=== PATIENT | female | born 1935 | race Two or more races ===

== ENCOUNTER 2023-05-02 17:40 | Emergency (ER) | payer MEDICARE, SELFPAY ==
[2023-05-02] VITALS (22 sets, daily range): BP systolic 166–178; BP diastolic 65–74; PULSE 60–66; RESP 10–25; TEMP 36.7; O2SAT 99; BMI 15.8
--- NOTE | 2023-05-02 18:14 | ED_ITS ---
HPI - General Adult General Chief complaint: Weakness Stated complaint: syncope/ abdominal pain severe Time Seen by Provider: 05/02/23 18:12 Source: patient Mode of arrival: Wheelchair Limitations: no limitations History of Present Illness HPI narrative: Patient is a 87 year old female who is presenting to the Emergency Room with chief complaint of abdominal/periumbilical cramping since Tuesday along with some mild weakness and mild nausea with no vomiting. Patient's daughter and daughter's are at bedside. Patient goes to dialysis on Tuesday and Tuesday. Patient did complete dialysis today, she had a little less fluid taken off of her today than she normally does secondary to abdominal and leg cramping. Patient still makes urine. Patient has no sick contacts. Patient lives at home with family members. Patient has no headache or neck pain. Not lightheaded or dizzy. No chest pain or shortness of breath. Mild urinary dysuria, no diarrhea, no constipation the patient says. Patient did not go the bathroom today, patient says that she did have normal stool this past weekend. No specific complaints for obvious etiology at this time. . All systems are negative except as noted/marked. All systems reviewed and otherwise negative. . Nurses note and vital signs reviewed and patient is not hypoxic. General: The patient appears well and in no apparent distress. Patient is resting comfortably on cart. Patient is not toxic, lethargic, or listless Skin: Warm, dry, no pallor noted. There is no rash noted. No petechiae, purpura. Head: Normocephalic, atraumatic Eye: Normal conjunctiva, no drainage, EOMI. PERRL Ears, Nose, Mouth, and Throat: oral mucosa is Slightly dry. Nares patent. Mouth without vesicles. Cardiovascular: Regular Rate and Rhythm, no murmur, gallop, rub Respiratory: Patient is in no distress, no accessory muscle use, lungs are clear to auscultation, no wheezing, rales or rhonchi Back: non-tender, no CVA tenderness bilaterally to percussion. No CT LS midline pain GI: soft, Mild periumbilical tenderness to palpation, no peritoneal signs, no flank bilateral pain to palpation, No suprapubic tenderness to palpation, hypoactive bowel sounds ?4, otherwise no tenderness to palpation, no masses appreciated. No rebound, guarding, or rigidity noted. No flank pain bilateral, No distention. No rash. Musculoskeletal: Patient has full range of motion of all of the extremities, no motor, sensory, or focal neurological deficits. Patient's fistula is to her left forearm. There is palpable thrills or bruits. No bleeding. Bandage is still in place from dialysis today. Neurological: A&O x3, normal speech Psychiatric: Cooperative Related Data Allergies Allergy/AdvReac Type Severity Reaction Status Date / Time No Known Drug Allergies Allergy Verified 05/02/23 17:50 PFSH PFSH Social History Smoking status: Never smoker Exam Constitutional Vital Signs, click to edit/add: Last Vital Signs Temp 98.1 F 05/02/23 17:47 Pulse 66 05/02/23 17:47 Resp 16 05/02/23 17:47 BP 166/74 H 05/02/23 17:47 Pulse Ox 99 05/02/23 17:47 O2 Del Method Room Air 05/02/23 17:47 Course Vital Signs Vital signs: Vital Signs Temperature 98.1 F 05/02/23 17:47 Pulse Rate 66 05/02/23 17:47 Respiratory Rate 16 05/02/23 17:47 Blood Pressure 166/74 H 05/02/23 17:47 Pulse Oximetry 99 05/02/23 17:47 Oxygen Delivery Method Room Air 05/02/23 17:47 Temperature 98.1 F 05/02/23 17:47 Pulse Rate 66 05/02/23 17:47 Respiratory Rate 16 05/02/23 17:47 Blood Pressure 166/74 H 05/02/23 17:47 Pulse Oximetry 99 05/02/23 17:47 Oxygen Delivery Method Room Air 05/02/23 17:47 Medical Decision Making [facility] Narrative Medical decision making narrative: Patient's labwork shows no significant findings. Patient is transitioned to Dr. Beltrán at 1900. Pending are her x-ray results, COVID results, and urinalysis. Patient was not given IV fluids initially because they took less fluid off of her today because of her abdominal/leg cramping. Patient was given IV Zofran. Lab Data Lab results reviewed: Yes I reviewed the patient's lab results Labs: Lab Results 05/02/23 Range/Units 18:05 WBC 5.7 (4.0-11.0) 10^3/uL RBC 3.84 L (4.20-5.40) 10^6/uL Hgb 12.4 (12.0-16.0) g/dL Hct 37.6 (36.0-48.0) % MCV 97.9 (81.0-99.0) fL MCH 32.3 (26.7-34.0) pg MCHC 33.0 (29.9-35.2) g/dL RDW 13.6 (11.0-15.0) % Plt Count 290 (150-450) 10^3/uL MPV 9.0 L (9.5-13.5) fL Neut % (Auto) 51.1 (43.0-75.0) % Lymph % (Auto) 35.4 (20.5-60.0) % [place] % (Auto) 10.8 (1.7-12.0) % Eos % (Auto) 1.6 (0.9-7.0) % Baso % (Auto) 0.9 (0.2-2.0) % Neut # (Auto) 2.9 (1.4-6.5) 10^3/uL Lymph # (Auto) 2.0 (1.2-3.8) 10^3/uL [place] # (Auto) 0.6 (0.3-0.8) 10^3/uL Eos # (Auto) 0.1 (0.0-0.7) 10^3/uL Baso # (Auto) 0.1 (0.0-0.1) 10^3/uL Abs Immat Gran (auto) 0.01 (0.00-0.03) 10^3/uL Imm/Tot Granulo (auto) 0.2 (0.0-0.5) % Sodium 135 L (136-145) mmol/L Potassium 3.8 (3.5-5.1) mmol/L Chloride 94 L (98-107) mmol/L Carbon Dioxide 36.9 H (21.0-32.0) mmol/L Anion Gap 7.9 BUN 14.0 (7.0-18.0) mg/dL Creatinine 3.21 H (0.55-1.02) mg/dL Est GFR ( Amer) 17 L (>=60) Est GFR (Non-Af Amer) 14 L (>=60) BUN/Creatinine Ratio 4.4 Glucose 114 H (74-106) mg/dL Calcium 9.3 (8.5-10.1) mg/dL Magnesium 2.2 (1.8-2.4) mg/dL Total Bilirubin 0.3 (0.2-1.0) mg/dL AST 22 (15-37) U/L ALT 22 (14-59) U/L Alkaline Phosphatase 129 H (46-116) U/L Total Protein 7.7 (6.4-8.2) g/dL Albumin 3.4 (3.4-5.0) g/dL Globulin 4.3 g/dL Albumin/Globulin Ratio 0.8 ECG Data Attestation: I personally reviewed and interpreted this ECG as follows: (EKG interpretation. Normal sinus rhythm at 61 beats a minute. Normal axis deviation. No acute ST elevation, no acute ectopy. QTC of 426. Nonspecific ST changes.) Discharge Plan Discharge Patient Disposition: Still a Patient
[2023-05-02] MEDS: ONDANSETRON PF 4 MG/2 ML VIAL IV (18:22)
[2023-05-02 18:23] LABS: Basophils Absolute Auto 0.1 10^3/uL (0.0-0.1); Basophils Percent Auto 0.9 % (0.2-2.0); Eosinophils Absolute Auto 0.1 10^3/uL (0.0-0.7); Eosinophils Percent Auto 1.6 % (0.9-7.0); Hematocrit 37.6 % (36.0-48.0); Hemoglobin 12.4 g/dL (12.0-16.0); Immature Granulocytes Abs Auto 0.01 10^3/uL (0.00-0.03); Immature Granulocytes Pct Auto 0.2 % (0.0-0.5); Lymphocytes Percent Auto 35.4 % (20.5-60.0); Mean Corpuscular Hemoglobin 32.3 pg (26.7-34.0); Mean Corpuscular Volume 97.9 fL (81.0-99.0); Monocytes Absolute Auto 0.6 10^3/uL (0.3-0.8); Monocytes Percent Auto 10.8 % (1.7-12.0); Neutrophils Absolute Auto 2.9 10^3/uL (1.4-6.5); Neutrophils Percent Auto 51.1 % (43.0-75.0); Platelet Count 290 10^3/uL (150-450); Red Blood Count 3.84 10^6/uL (4.20-5.40); Red Cell Distribution Width 13.6 % (11.0-15.0); White Blood Count 5.7 10^3/uL (4.0-11.0)
[2023-05-02 18:38] LABS: Alanine Aminotransferase 22 U/L (14-59); Albumin Globulin Ratio 0.8; Albumin Level 3.4 g/dL (3.4-5.0); Alkaline Phosphatase 129 U/L (46-116); Anion Gap 7.9; Aspartate Amino Transferase 22 U/L (15-37); BUN Creatinine Ratio 4.4; Bilirubin Total 0.3 mg/dL (0.2-1.0); Calcium 9.3 mg/dL (8.5-10.1); Carbon Dioxide 36.9 mmol/L (21.0-32.0); Chloride 94 mmol/L (98-107); Estimated GFR (African America 17 (>=60); Estimated GFR (Non-African Ame 14 (>=60); Globulin 4.3 g/dL; Glucose 114 mg/dL (74-106); Magnesium 2.2 mg/dL (1.8-2.4); Potassium 3.8 mmol/L (3.5-5.1); Sodium 135 mmol/L (136-145); Total Protein 7.7 g/dL (6.4-8.2)
--- NOTE | 2023-05-02 18:47 | XR_ITS ---
[facility] [place] [id number] Patient Name: ELIZABETH HAN MRN: [id number] date: 1935 Sex: F Assigned Patient Location: ER Current Patient Location: ER Accession/Order Number: [id number] Exam Date: 05/02/2023 19:10 Report Date: 05/02/2023 20:59 At the request of: JUSTINE CLARK Procedure: XR acute abdomen series EXAM: XR acute abdomen series HISTORY: Periumbilical cramping COMPARISON: None. TECHNIQUE: AP chest and 2 views of the abdomen FINDINGS: Hyperinflation the lung parenchyma. Scattered scarring with no acute consolidation or infiltrate. The heart is not enlarged. No pneumothorax or pleural effusion. Moderate to severe amount of stool within the rectum. Stool burden is otherwise unremarkable. The bowel gas pattern is nonobstructed. The osseous structures exhibit no gross acute abnormality. XR/XR acute abdomen series IMPRESSION: Moderate to severe amount of stool within the rectum Electronically authenticated by: RAUL MURRY Date: 05/02/2023 20:59
[2023-05-02 19:18] LABS: SARS-CoV-2 Ag NEGATIVE (NEGATIVE)
--- NOTE | 2023-05-02 19:28 | ECG_ITS ---
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
[2023-05-02 20:13] LABS: Bilirubin Urine NEGATIVE (NEGATIVE); Blood Urine TRACE-I (NEGATIVE); Clarity Urine CLEAR (CLEAR); Color Urine LT. YELLOW (YELLOW); Glucose Urine UA 100 mg/dL (NEGATIVE); Ketones Urine NEGATIVE (NEGATIVE); Leukocyte Esterase Urine TRACE (NEGATIVE); Nitrite Urine NEGATIVE (NEGATIVE); Protein Urine >=300 mg/dL (NEG/TRACE); Specific Gravity Urine 1.015 (1.005-1.025); Urobilinogen Urine 0.2 EU/dL (0.2-1.0); pH Urine 8.5 (5.0-9.0)
[2023-05-02 20:26] LABS: Bacteria Urine NONE SEEN #/HPF (NONE SEEN); Cast Seen? NONE SEEN #/LPF (NONE SEEN); Crystals Seen? None Seen #/HPF (None Seen); Mucus Urine NONE SEEN (NONE SEEN); RBC Urine 0-2 #/HPF (0-2); Squamous Epithelial Cell Urine FEW #/LPF (NONE/RARE); Transitional Epi Cells Urine RARE #/LPF (NONE SEEN); WBC Urine 0-2 #/HPF (NONE SEEN)
[2023-05-02 20:28] LABS: Troponin I High Sensitivity 117.3 pg/mL (4.0-51.3)
[2023-05-02] MEDS: ACETAMINOPHEN 325 MG TABLET 650 MG PO (21:02)
[2023-05-02 21:10] LABS: Troponin I High Sensitivity 110.2 pg/mL (4.0-51.3)
[2023-05-03 14:50] LABS: SARS-CoV-2 NAA NOT DETECTED (NOT DETECTE)
== END 2023-05-02 21:38 | disposition home or self-care (01) ==
PROVIDERS: Emergency Medicine; Emergency Provider Emergency Medicine
DX: K59.00 Constipation, unspecified (principal); E86.0 Dehydration; N18.6 End stage renal disease; Z99.2 Dependence on renal dialysis; Z20.822 Contact with and (suspected) exposure to COVID-19
CPT/HCPCS: 36415; 74022; 80053; 81001; 83735; 84484; 85025; 87635; 87811; 93005; 96374; 99285

== ENCOUNTER 2023-06-06 13:11 | Emergency (ER) | payer MEDICARE, SELFPAY ==
[2023-06-06 13:31] VITALS: BP 186/60; PULSE 60; RESP 18; TEMP 36.5; O2SAT 98; BMI 15.8
--- NOTE | 2023-06-06 13:37 | PC.NURSE ---
Pain to low back that radiates down left leg
--- NOTE | 2023-06-06 13:54 | XR_ITS ---
The [address] [address] Patient Name: ELIZABETH HAN MRN: [id number] date: 1935 Sex: F Assigned Patient Location: ER Current Patient Location: ER Accession/Order Number: [id number] Exam Date: 06/06/2023 14:20 Report Date: 06/06/2023 14:46 At the request of: JOÉS PARKS Procedure: XR lumbar spine 2-3V EXAM: XR lumbar spine 2-3V HISTORY: Low back pain COMPARISON: CT abdomen and CT pelvis studies dated 04/06/2021 TECHNIQUE: 3 views of the lumbar spine were obtained to include AP, lateral and directed lateral lumbosacral junction views. FINDINGS: Generalized osteopenia. Mild convexity of the lumbar spine to the left. Suggestion of mild to moderate height loss of L3 and L4 vertebral bodies centrally with depression of the superior endplates which may be artifactually created, compression fractures however are not excluded. Correlate clinically. Follow-up as needed. Moderate degenerative facet changes at L4-5 and L5-S1 bilaterally with mild changes at L3-4. 9 mm anterior offset of L4 vertebral body upon L5 likely related to ligament laxity/degenerative change, this appears mildly progressed compared to the prior exam. No obvious spondylolysis. XR/XR lumbar spine 2-3V IMPRESSION: Artifact versus possible compression fractures of L3 and L4 vertebral bodies. Degenerative changes as noted. There is 9 mm anterior offset of L4 vertebral body upon L5 mildly progressed since prior exam and likely related to ligament laxity/degenerative change. Follow-up as needed. Electronically authenticated by: ONEIDA ARGUELLO Date: 06/06/2023 14:46
--- NOTE | 2023-06-06 13:55 | ED.BACK1 ---
HPI - Back Pain/Injury General Chief Complaint: Back Pain/Injury Stated Complaint: FALL/ LOWER EXTREMITY INJURY Time Seen by Provider: 06/06/23 13:22 Source: family Mode of arrival: Wheelchair Limitations: no limitations History of Present Illness HPI Narrative: Patient is an 88-year-old female with a history of dialysis who presents to the emergency department with her daughter for the evaluation of left low back pain for the last several days. Patient states the pain radiates into the hip and occasionally she feels pain into the back of the left leg. She has had no numbness or tingling. Patient denies any mechanism of injury or trauma but patient's daughter at bedside states they are not sure because the patient won't tell . She has no abdominal pain or urinary symptoms. No peripheral paresthesias. She reports pain in the left low back and mildly across the lumbar spine Related Data Home Medications Medication Instructions Recorded Confirmed amlodipine 10 mg tablet 10 mg PO DAILY 06/06/23 06/06/23 furosemide 40 mg tablet 40 mg PO DAILY 06/06/23 06/06/23 hydralazine 50 mg tablet 50 mg PO Q8H 06/06/23 06/06/23 sevelamer carbonate 800 mg tablet 800 mg PO TID 06/06/23 06/06/23 vitamin B complex-vitamin C-folic 1 tab PO Q24H 06/06/23 06/06/23 acid 0.8 mg tablet (Cate-Antoinette) Previous Rx's Medication Instructions Recorded bisacodyl 5 mg tablet,delayed 5 mg PO DAILY PRN constipation #10 05/02/23 release (Dulcolax (bisacodyl)) tabs methocarbamol 500 mg tablet 500 mg PO Q8H PRN muscle spasm #15 06/06/23 tabs tramadol 50 mg tablet 50 mg PO Q4H PRN pain #12 tabs 06/06/23 Allergies Allergy/AdvReac Type Severity Reaction Status Date / Time No Known Drug Allergies Allergy Verified 06/06/23 13:29 Review of Systems ROS Constitutional Denies: fever or chills Ears, nose, mouth, and throat Denies: throat pain or neck pain Cardiovascular Denies: chest pain Respiratory Denies: shortness of breath or cough Gastrointestinal Denies: abdominal pain, nausea, vomiting or diarrhea Genitourinary Denies: painful urination Musculoskeletal Reports: back pain and muscle cramps; Denies: neck pain or extremity pain Integumentary/Breast Denies: rash Neurological Denies: headache PFSH PFSH Social History Smoking status: Never smoker Exam Narrative Exam Narrative: Gen.: Awake, alert, in no distress Head: Normocephalic, atraumatic ENT: Moist mucous membranes Respiratory: No respiratory distress Gastrointestinal: Abdomen is soft, nondistended and nontender to palpation Extremities: Moves extremities equally, normal dorsiflexion and plantarflexion bilaterally, no decrease in sensation to the medial thighs, normal hip flexion bilaterally Psych: Normal mood and affect Neuro: No focal neuro deficit Skin: Warm, dry, intact Constitutional Vital Signs, click to edit/add: Last Vital Signs Temp 97.7 F 06/06/23 13:31 Pulse 60 06/06/23 13:31 Resp 18 06/06/23 13:31 BP 186/60 H 06/06/23 13:31 Pulse Ox 98 06/06/23 13:31 O2 Del Method Room Air 06/06/23 13:31 Course Vital Signs Vital signs: Vital Signs Temperature 97.7 F 06/06/23 13:31 Pulse Rate 60 06/06/23 13:31 Respiratory Rate 18 06/06/23 13:31 Blood Pressure 186/60 H 06/06/23 13:31 Pulse Oximetry 98 06/06/23 13:31 Oxygen Delivery Method Room Air 06/06/23 13:31 Temperature 97.7 F 06/06/23 13:31 Pulse Rate 60 06/06/23 13:31 Respiratory Rate 18 06/06/23 13:31 Blood Pressure 186/60 H 06/06/23 13:31 Pulse Oximetry 98 06/06/23 13:31 Oxygen Delivery Method Room Air 06/06/23 13:31 MDM - Back Pain/Injury MDM Narrative Medical decision making narrative: With no bony point tenderness of the lumbar spine, she has no focal neurodeficits. X-rays of the lumbar spine show artifact versus possible mild compression fractures of L3 and L4, suspect this may be old if there are fractures present. Patient discharged home with a short course of Robaxin and Ultram to follow-up with her primary care provider for further evaluation and treatment. Return to the ER if symptoms change or worsen. Medical Records Attestation: I reviewed the patient's medical records. Imaging Data XR lumbar spine: Attestation: I have reviewed the pertinent imaging results. Radiologist's impression: Procedure: XR lumbar spine 2-3V EXAM: XR lumbar spine 2-3V HISTORY: Low back pain COMPARISON: CT abdomen and CT pelvis studies dated 04/06/2021 TECHNIQUE: 3 views of the lumbar spine were obtained to include AP, lateral and directed lateral lumbosacral junction views. FINDINGS: Generalized osteopenia. Mild convexity of the lumbar spine to the left. Suggestion of mild to moderate height loss of L3 and L4 vertebral bodies centrally with depression of the superior endplates which may be artifactually created, compression fractures however are not excluded. Correlate clinically. Follow-up as needed. Moderate degenerative facet changes at L4-5 and L5-S1 bilaterally with mild changes at L3-4. 9 mm anterior offset of L4 vertebral body upon L5 likely related to ligament laxity/degenerative change, this appears mildly progressed compared to the prior exam. No obvious spondylolysis. IMPRESSION: Artifact versus possible compression fractures of L3 and L4 vertebral bodies. Degenerative changes as noted. There is 9 mm anterior offset of L4 vertebral body upon L5 mildly progressed since prior exam and likely related to ligament laxity/degenerative change. Follow-up as needed. Electronically authenticated by: ONEIDA ARGUELLO Date: 06/06/2023 14:46 Discharge Plan Discharge Chief Complaint: Back Pain/Injury Clinical Impression: Low back pain Patient Disposition: Home, Self-Care Time of Disposition Decision: 15:00 Condition: Good Prescriptions / Home Meds: New tramadol 50 mg tablet 50 mg PO Q4H PRN (Reason: pain) Qty: 12 0RF Rx Instructions: DX: M54.5 methocarbamol 500 mg tablet 500 mg PO Q8H PRN (Reason: muscle spasm) Qty: 15 0RF No Action bisacodyl [Dulcolax (bisacodyl)] 5 mg tablet,delayed release (DR/EC) 5 mg PO DAILY PRN (Reason: constipation) Qty: 10 0RF amlodipine 10 mg tablet 10 mg PO DAILY furosemide 40 mg tablet 40 mg PO DAILY hydralazine 50 mg tablet 50 mg PO Q8H sevelamer carbonate 800 mg tablet 800 mg PO TID Cate-Antoinette 0.8 mg tablet 1 tab PO Q24H Instructions: Acute Low Back Pain (ED) Stand Alone Forms: Portal Instructions Referrals: Physician,Non-Staff, MD [Primary Care Provider] - 1 week
[2023-06-06] MEDS: METHOCARBAMOL 500 MG TABLET PO (14:02)
[2023-06-06 15:14] LABS: Bilirubin Urine NEGATIVE (NEGATIVE); Blood Urine TRACE-I (NEGATIVE); Clarity Urine CLEAR (CLEAR); Color Urine LT. YELLOW (YELLOW); Glucose Urine UA 250 mg/dL (NEGATIVE); Ketones Urine NEGATIVE (NEGATIVE); Leukocyte Esterase Urine NEGATIVE (NEGATIVE); Nitrite Urine NEGATIVE (NEGATIVE); Protein Urine 100 mg/dL (NEG/TRACE); Urobilinogen Urine 0.2 EU/dL (0.2-1.0); pH Urine 8.5 (5.0-9.0)
[2023-06-06 15:21] VITALS: BP 162/87
[2023-06-06 15:21] LABS: Urine Microscopic Indicated YES
[2023-06-06 15:29] LABS: Bacteria Urine TRACE #/HPF (NONE SEEN); Cast Seen? NONE SEEN #/LPF (NONE SEEN); Crystals Seen? None Seen #/HPF (None Seen); Mucus Urine NONE SEEN (NONE SEEN); RBC Urine 0-2 #/HPF (0-2); Squamous Epithelial Cell Urine RARE #/LPF (NONE/RARE); Urine Culture Indicated NO; WBC Urine 0-2 #/HPF (NONE SEEN)
== END 2023-06-06 15:25 | disposition home or self-care (01) ==
PROVIDERS: Physician Assistant; Emergency Provider Emergency Medicine
DX: M54.50 Low back pain, unspecified (principal); Z99.2 Dependence on renal dialysis; Z79.899 Other long term (current) drug therapy
CPT/HCPCS: 72100; 81001; 99284

== ENCOUNTER 2023-08-01 08:06 | Outpatient (REF) | payer MEDICARE, SELFPAY ==
--- OUTSIDE RECORDS SUMMARY | 2023-08-01 08:11 | XMS_ITS | CCD ---
Author Name Unknown Address [address] [place] [address] Organization [facility] Care Team Providers Care Catalog Library Assistant Name Role Phone NOHEMI, MART Attending Unavailable NOHEMI, MART Admitting Unavailable NOHEMI, MART Consulting Unavailable NOHEMI, MART Attending Unavailable NOHEMI, MART Admitting Unavailable MISC, DR HOWARD Primary Care Unavailable NOHEMI, MART Consulting Unavailable NOHEMI, MART Attending Unavailable NOHEMI, MART Admitting Unavailable NOHEMI, MART Consulting Unavailable MISC, DR HOWARD Primary Care Unavailable SLAUTERBECK, DAWSON Consulting Unavailable SLAUTERBECK, DAWSON Attending Unavailable SLAUTERBECK, DAWSON Admitting Unavailable MISC, DR HOWARD Primary Care Unavailable NOHEMI, MART Attending Unavailable NOHEMI, MART Admitting Unavailable NOHEMI, MART Consulting Unavailable MISC, DR HOWARD Primary Care Unavailable NOHEMI, MART Consulting Unavailable NOHEMI, MART Attending Unavailable NOHEMI, MART Admitting Unavailable NOHEMI, MART Attending Unavailable NOHEMI, MART Admitting Unavailable MISC, DR HOWARD Primary Care Unavailable EMELY, EUGENIO Attending Unavailable EMELY, EUGENIO Admitting Unavailable MISC, DR HOWARD Primary Care Unavailable ZIMARTÍN, DR RANDALL Salas Consulting Unavailable SHANNANYESSY WEINER Consulting Unavailable EMELY, EUGENIO Consulting Unavailable EMELY, EUGENIO Consulting Unavailable EMELY, EUGENIO Attending Unavailable EMELY, EUGENIO Admitting Unavailable MISC, DR HOWARD Primary Care Unavailable To, Raul Consulting Unavailable REQUEST, NONE LISTED Admitting Unavaila ble REQUEST, NONE LISTED Attending Unavaila ble MISC, DR HOWARD Primary Care Unavailable RAMEZ RAHMAN Consulting Unavailable REQUEST, NONE LISTED Consulting Unavaila ble REQUEST, NONE LISTED Attending Unavaila ble MISC, DR HOWARD Primary Care Unavailable REQUEST, NONE LISTED Admitting Unavaila ble NOHEMI, MART Consulting Unavailable NOHEMI, MART Attending Unavailable NOHEMI, MART Admitting Unavailable DR CYNTHIA DOCTOR Primary Care Unavailable Dany Rodriguez Unavailable NON STAFF Primary Care Provider UnavailDO Heriberto Brown Attending Provider Heriberto Gonzalez Attending Unavailable Heriberto Gonzalez Admitting Unavailable NON STAFF Primary Care Unavailable Heriberto Gonzalez Admitting Unavailable Heriberto Gonzalez Attending Unavailable Medications Current Medications Medication Drug Class(es) Dates Sig (Normalized) Sig (Original) acetaminophen 325 mg oral tablet (2 sources) Start: 04-06-2021 take 2 tablets by mouth every four hours Acetaminophen (Tylenol) 325 mg Tablet Active 650 MG PO Every 4 hours April 05, 2021 11:00pm amLODIPine 10 mg oral tablet (3 sources) Dihydropyridine Calcium Channel Haseeb Start: 03-05-2020 take 10 mg by mouth once daily Amlodipine Active 10 MG PO Daily March 04, 2020 11:00pm calcium carbonate 500 mg chewable tablet (3 sources) Start: 04-06-2021 take 1 tablet by mouth three times daily Calcium Carbonate (Tums) 200 mg calcium (500 mg) Tablet,Chewable Active 500 MG PO Three times daily April 05, 2021 11:00pm epoetin santiago 56123 unt/ml injectable solution (1 source) Erythropoiesis-stimul ating Agent Procrit 00610 UNIT/ML as directed Injection every 4 weeks Active furosemide 40 mg oral tablet (4 sources) Loop Diuretic Start: 04-06-2021 take 40 mg by mouth once daily Furosemide Active 40 MG PO Daily April 05, 2021 11:00pm Start: 08-12-2020 End: 09-04-2020 take 40 mg by mouth once daily Furosemide Discontinued 40 MG PO Daily August 12, 2020 12:00am September 04, 2020 11:47am hydrALAZINE hydrochloride 25 mg oral tablet (3 sources) Arteriolar Vasodilator Start: 08-12-2020 take 50 mg by mouth three times daily Hydralazine Active 50 MG PO Three times daily August 12, 2020 12:00am Start: 07-02-2020 take 2 tablets by [facility] every twelve hours hydrALAZINE HCl 25 MG 2 tablet with food Orally bid Jun, Active lisinopril 20 mg oral tablet (2 sources) Angiotensin Converting Enzyme Inhibitor Start: 04-06-2021 take 20 mg by mouth once daily Lisinopril Active 20 MG PO Daily April 05, 2021 11:00pm Completed/Discontinued Medications Medication Drug Class(es) Dates Sig (Normalized) Sig (Original) cephalexin 500 mg oral capsule (2 sources) Cephalosporin Antibacterial Start: 04-06-2021 End: 04-07-2021 take 500 mg by mouth once daily Cephalexin Discontinued 500 MG PO Daily April 05, 2021 11:00pm April 07, 2021 3:07pm 10 day course chlorthalidone 25 mg oral tablet (3 sources) Thiazide-like Diuretic Start: 03-05-2020 End: 04-07-2021 take 25 mg by mouth once daily Chlorthalidone Discontinued 25 MG PO Daily March 04, 2020 11:00pm April 07, 2021 2:08pm ergocalciferol 1.25 mg oral capsule (2 sources) Provitamin D2 Compound Start: 03-05-2020 End: 08-12-2020 Ergocalciferol (Vitamin D2) (Vitamin D2) 1,250 mcg (50,000 unit) capsule Discontinued 62543 UNIT PO every week March 04, 2020 11:00pm August 12, 2020 12:47pm heparin (2 sources) Unfractionated Heparin, Anti-coagulant Start: 04-06-2021 End: 04-07-2021 Heparin (Porcine) Discontinued 2000 UNIT INJECTION April 05, 2021 11:00pm April 07, 2021 2:08pm 2 week loading bolus 24 hr metoprolol succinate 25 mg extended release oral tablet (4 sources) beta-Adrenergic Haseeb Start: 02-27-2020 End: 04-07-2021 take 25 mg by mouth once daily Metoprolol Succinate Discontinued 25 MG PO Daily August 12, 2020 12:00am April 07, 2021 2:08pm take 1 capsule by mouth once kang ly Metoprolol Succinate 25 MG 1 capsule Orally Once a day for 90 day(s) Active potassium chloride 20 meq extended release oral tablet (2 sources) Start: 08-12-2020 End: 09-04-2020 take 20 mEq by mouth once daily Potassium Chloride Discontinued 20 MEQ PO Daily August 12, 2020 12:00am September 04, 2020 11:47am PROCRIT INJECTION - 1000 units (4 sources) Start: 07-31-2020 PROCRIT INJECT ION - 1000 units Jul, 1000 U Start: 07-02-2020 PROCRIT INJECT ION - 1000 units Jun, 1000 U Start: 03-13-2020 PROCRIT INJECT ION - 1000 units Mar, 1000 U Start: 02-26-2020 PROCRIT INJECT ION - 1000 units Feb, 1000 U sodium bicarbonate 650 mg oral tablet (7 sources) Start: 04-06-2021 End: 04-07-2021 take 650 mg by mouth three times daily Sodium Bicarbonate Discontinued 650 MG PO Three times daily April 05, 2021 11:00pm April 07, 2021 3:07pm Start: 08-12-2020 End: 09-04-2020 take 650 mg by mouth once daily Sodium Bicarbonate Dis continued 650 MG PO Daily August 12, 2020 12:00am September 04, 2020 11:47am Start: 03-05-2020 End: 08-12-2020 take 1300 mg by mouth twice daily Sodium Bicarbonate Discontinued 1300 MG PO Twice daily March 04, 2020 11:00pm August 12, 2020 12:47pm take 2 tablets by mo uth every eight hours Sodium Bicarbonate 650 MG 2 Tablet Orally TID for 90 day(s) Not-Taking Problems Active Problems Problem Classification Problem Date Documented Date Episodic/Chronic Chronic kidney disease (15 sources) End stage renal disease; Translations: [Dependence on renal dialysis] Onset: 0 Resolved: 2 Chronic Deficiency and other anemia (1 source) Anemia in chronic kidney disease; Translations: [ANEMIA IN CHRONIC KIDNEY DISEASE] Onset: 1 Chronic Deficiency and other anemia (1 source) Anemia of renal disease; Translations: [Anemia in chronic kidney disease] Chronic Disorders of lipid metabolism (1 source) Hyperlipidemia, unspecified; Translations: [HYPERLIPIDEMIA UNSPECIFIED] Onset: 1 Chronic Fluid and electrolyte disorders (8 sources) Hyperkalemia; Translations: [Acidosis] Onset: 1 Episodic Hypertension with complications and secondary hypertension (8 sources) Hypertensive chronic kidney disease with stage 5 chronic kidney disease or end stage renal disease; Translations: [Hypertensive heart AND chronic kidney disease stage 5] Onset: 1 Chronic Malaise and fatigue (7 sources) Weakness; Translations: [Asthenia] Onset: 1 Episodic Other aftercare (1 source) Other exterminator (current) drug therapy; Translations: [OTH USP CURRENT DRUG THERAPY] Onset: 1 Episodic Other diseases of kidney and ureters (1 source) Secondary hyperparathyroidism of renal origin; Translations: [SEC HYPERPARATHYROIDISM RENAL ORIGN] Onset: 1 Chronic Other diseases of kidney and ureters (1 source) Secondary hyperparathyroidism; Translations: [Secondary hyperparathyroidism of renal origin] Chronic Other liver diseases (1 source) Abnormal levels of other serum enzymes; Translations: [ABNORMAL LEVELS OTHER SERUM ENZYMES] Onset: 1 Episodic Other lower respiratory disease (1 source) Shortness of breath; Translations: [SHORTNESS OF BREATH] Onset: 1 Episodic Pneumonia (except that caused by tuberculosis or sexually transmitted disease) (1 source) Pneumonia, unspecified organism; Translations: [PNEUMONIA UNSPECIFIED ORGANISM] Onset: 1 Episodic Unclassified (1 source) CONTACT W/AND (SUSP) EXPOS COVID-19; Translations: [CONTACT W/AND (SUSP) EXPOS COVID-19] Onset: 1 Unclassified (1 source) Contact with and (suspected) exposure to potentially hazardous body fluids; Translations: [Contact with and (suspected) exposure to potentially hazardous body fluids] Onset: 4 Past or Other Problems Problem Classification Problem Date Documented Da te Episodic/Chronic Immunizations and screening for infectious disease (4 sources) Encounter for screening for other viral diseases; Translations: [ENC SCREENING FOR OTH VIRAL DZ] Onset: 08-04-2020 Episodic Results Test Name Value Interpretation Reference Range Facil ity HIV Screen ([facility])on HIV Screen ([facility]) Non-Reactive Normal Nonreactive [facility] Comment on above: Order Comment: Which is this, the Source or the Person with the Exposure?: SOURCE Source Medical Record: [id number] Exposed Result Comment: PERF ORMED BY: [facility] [address] [place] [address] PATHOLOGIST LARD MAKER ALISA WEINER M.D. Performed By: #### H BSAG, HBSAB, HCV RX PCR #### [facility] , #### HIV12 #### [address] HIV Screen ChemBioOrdered By : Heriberto Gonzalez on 07-08-2023 HIV 1+2 IgG IA.rapid Ql (Bld) Non-Reactive Nonreactive [facility] Hep C Ab wRfx to Qnt PCRon 0 07-08-2023 Hepatitis C Virus Antibody Non-Reactive Normal Non Reactive [facility] Comment on above: Order Comment: Which is this, the Source or the Person with the Exposure?: SOURCE Source Medical Record: [id number] Exposed Performed By: #### H BSAG, HBSAB, HCV RX PCR #### [facility] , #### HIV12 #### [address] Interpretation Hepatitis C Normal . [facility] Comment on above: Order Comment: Which is this, the Source or the Person with the Exposure?: SOURCE Source Medical Record: [id number] Exposed Result Comment: Not infected with HCV unless early or acute infection is suspected (which may be delayed in an immunocompromised individual), or other evidence exists to indicate HCV infection. Performed By: #### H BSAG, HBSAB, HCV RX PCR #### [facility] , #### HIV12 #### [address] Hepatitis B Surface Antibody on 07-08-2023 Hepatitis B Surface Antibody Non-Reactive Normal . [facility] Comment on above: Order Comment: Which is this, the Source or the Person with the Exposure?: SOURCE Source Medical Record: [id number] Exposed Result Comment: Non Reactive: Inconsistent with immunity, less than 10 mIU/mL Reactive: Consistent with immunity, greater than 9.9 mIU/mL Verified by repeat analysis Performed at: [address] [id number] Branding Specialist: Jermain Perrin PhD, Phone: [phone] Performed By: #### H BSAG, HBSAB, HCV RX PCR #### [facility] , #### HIV12 #### [facility] [address] [place] [address] Hepatitis B Surface Antigeno n 07-08-2023 HBsAg Screen Negative Normal Negative [facility] Comment on above: Order Comment: Which is this, the Source or the Person with the Exposure?: SOURCE Source Medical Record: [id number] Exposed Result Comment: Perf ormed at: CB - [facility] [address] [id number] Branding Specialist: Jermain Perrin PhD, Phone: [phone] PERFORMED BY: [place] [address] PATHOLOGIST LARD MAKER ALISA WEINER M.D. Performed By: #### H BSAG, HBSAB, HCV RX PCR #### [facility] , #### HIV12 #### [facility] [address] [place] [address] BNPon 04-06-2021 Natriuretic peptide B (Bld) [Mass/Vol] 4012.0 pg/mL Critically high <=1,800.0 [facility] Comment on above: Performed By: #### C VDTBSofi, CVDAGS #### [facility] [address] [place] [address] Dr. Venkat Rivas CBC AUTO DIFFon 04-06-2021 BASO # 0.1 103/ul Normal 0.0-0.1 [facility] Comment on above: Performed By: #### C VDTBH, CVDAGS #### [facility] [address] [place] [address] Dr. Venkat Rivas Basophils/100 WBC (Bld) 0.8 % Normal 0.2-2.0 [facility] Comment on above: Performed By: #### C VDTBH, CVDAGS #### [facility] [address] [place] [address] Dr. Venkat Rivas EO # 0.1 103/ul Normal 0.0-0.7 [facility] Comment on above: Performed By: #### C VDTBH, CVDAGS #### [facility] [address] [place] [address] Dr. Venkat Rivas Eosinophils/100 WBC (Bld) 0.9 % Normal 0.9-7.0 [facility] Comment on above: Performed By: #### C VDTBH CVDAGS #### [facility] [address] [place] [address] Dr. Venkat Rivas Erythrocyte distribution width (RBC) [Ratio] 13.7 % Normal 11.0-15.0 [facility] Comment on above: Performed By: #### C VDTBSofi CVDAGS #### [facility] [address] [place] [address] Dr. Venkat Rivas Hematocrit (Bld) [Volume fraction] 31.1 % Critically low 36.0-48.0 [facility] Comment on above: Performed By: #### C VDTBSofi CVDAGS #### [facility] [address] [place] [address] Dr. Venkat Rivas Hemoglobin (Bld) [Mass/Vol] 10.6 g/dL Critically low 12.0-16.0 [facility] Comment on above: Performed By: #### C VDTBSofi CVDAGS #### [facility] [address] [place] [address] Dr. Venkat Rivas IG # 0.02 10e3/ul Normal 0.00-0.03 [facility] Comment on above: Performed By: #### C VDTBH CVDAGS #### [facility] [address] [place] [address] Dr. Venkat Rivas IG % 0.3 % Normal 0.0-0.5 [facility] Comment on above: Performed By: #### C VDTBH CVDAGS #### [facility] [address] [place] [address] Dr. Venkat Rivas LYMPH # 1.8 103/ul Normal 1.2-3.8 [facility] Comment on above: Performed By: #### C VDTBH CVDAGS #### [facility] [address] [address] [address] Venkat Rivas Lymphocytes/100 WBC (Bld) 27.0 % Normal 20.5-60.0 [facility] Comment on above: Performed By: #### C VDTBH, CVDAGS #### [facility] [address] [address] [address] Venkat Rivas MANUAL DIFF REQ NO Normal [facility] Comment on above: Performed By: #### C VDTBH, CVDAGS #### [facility] [address] [place] [address] Dr. Venkat Rivas MCH (RBC) [Entitic mass] 29.2 pg Normal 26.7-34.0 [facility] Comment on above: Performed By: #### C VDTBH, CVDAGS #### [facility] [address] [place] [address] Dr. Venkat Rivas MCHC (RBC) [Mass/Vol] 34.1 g/dL Normal 29.9-35.2 [facility] Comment on above: Performed By: #### C VDTBH, CVDAGS #### [facility] [address] [address] [address] Venkat Rivas MCV (RBC) [Entitic vol] 85.7 fL Normal 81.0-99.0 [facility] Comment on above: Performed By: #### C VDTBH, CVDAGS #### [facility] [address] [place] [address] Dr. Venkat Rivas MONO # 0.5 103/ul Normal 0.3-0.8 [facility] Comment on above: Performed By: #### C VDTBH, CVDAGS #### [facility] [address] [place] [address] Dr. Venkat Rivas Monocytes/100 WBC (Bld) 7.2 % Normal 1.7-12.0 [facility] Comment on above: Performed By: #### C VDTBH, CVDAGS #### [facility] [address] [place] [address] Dr. Venkat Rivas NEUT # 4.3 103/ul Normal 1.4-6.5 [facility] Comment on above: Performed By: #### C VDTBH, CVDAGS #### [facility] [address] [place] [address] Dr. Venkat Rivas Neutrophils/100 WBC (Bld) 63.8 % Normal 43.0-75.0 [facility] Comment on above: Performed By: #### C NATHANTBH, CVDAGS #### [facility] [address] [place] [address] Dr. Venkat Rivas Platelet mean volume (Bld) [Entitic vol] 9.5 fL Normal 9.5-13.5 [facility] Comment on above: Performed By: #### C ZEB, CVDAGS #### [facility] [address] [place] [address] Dr. Venkat Rivas PLT 263 103/ul Normal 150-450 [facility] Comment on above: Performed By: #### C ZEB, CVDAGS #### [facility] [address] [place] [address] Dr. Venkat Rivas RBC 3.63 106/ul Critically low 4.20-5.40 [facility] Comment on above: Performed By: #### C ZEB, CVDAGS #### [facility] [address] [place] [address] Dr. Venkat Rivas WBC 6.7 103/ul Normal 4.0-11.0 [facility] Comment on above: Performed By: #### C VDTBSofi, CVDAGS #### [facility] [address] [place] [address] ABD/PELVIS WO CONon 04-06 CT ABD/PELVIS WO CON EXAMINATION: CT ABD/PELVIS WO CON HISTORY: Asthenia , generalized weakness COMPARISON: No relevant comparison available. TECHNIQUE: Axial, Coronal, and Sagittal images were created without IV contrast. Dose reduction techniques were achieved by using automated exposure control and/or adjustment of mA and/or kV according to patient size and/or use of iterative reconstruction technique. FINDINGS: LUNG BASES: No visible pulmonary or pleural disease. LIVER: A few scattered small hypodensities, nonspecific but statistically favoring cysts or hemangiomas. BILIARY: No dilatation or calcification. PANCREAS: No lesion, fluid collection, ductal dilatation, or atrophy. SPLEEN: No enlargement or focal lesion. ADRENALS: No mass or enlargement. KIDNEYS: Right kidney contains a nonobstructing 2 mm stone. Unremarkable left kidney and bilateral ureters. BOWEL/MESENTERY: Diverticulosis throughout the length of the colon without acute inflammatory changes. No visible mass, obstruction, or bowel wall thickening. Normal appendix. AORTA/VASCULAR: No aneurysm or dissection. RETROPERITONEUM: No mass or adenopathy. LYMPH NODES: No adenopathy. URINARY BLADDER: No visible focal wall thickening, lesion, or calculus. PELVIC ORGANS: No visible mass. Pelvic organs appropriate for patient age. ABDOMINAL WALL: No mass or hernia. BONES: Grade 1 anterior listhesis of L4 on 5. No acute bone abnormality. OTHER: Negative. IMPRESSION: 1. Nonobstructing right nephrolithiasis. 2. Colonic diverticulosis. 3. No acute or suspicious findings to account for patient's symptoms. Electronically authenticated by: RANDALL YOST Date: 2021-04-06 14:19 Normal [facility] Covid-19 PCR (CVDTB)on SARS-CoV-2 (COVID-19) RNA HUGH+probe Ql (Unsp spec) Not detected Normal NOT DETECTED [facility] Comment on above: Result Comment: This test is not yet approved or cleared by the [place] FDA. When there are no FDA-approved or cleared tests available, and other criteria are met, FDA can make tests available under an emergency access mechanism called an Emergency Use Authorization (EUA). The EUA for this test is supported by the Gastroenterology Teacher of Health and Human Service's (HHS's) declaration that circumstances exist to justify the emergency use of in vitro diagnostics for the detection and/or diagnosis of the virus that causes COVID-19. This EUA will remain in effect (meaning this test can be used) for the duration of the COVID-19 declaration justifying emergency of IVDs, unless it is terminated or revoked by FDA (after which the test may no longer be used). When diagnostic testing is negative, the possibility of a false negative should be considered in the context of a patient's recent exposures and the presence of clinical signs and symptoms consistent with SARS-CoV-2. Performed By: #### C VDTBH, CVDAGS #### [facility] [address] [address] [address] Venkat DOWNEY URINE PROFILEon 1 Bilirubin Ql (U) Negative Normal NEGATIVE [facility] Comment on above: Performed By: #### C BC #### [facility] [address] [place] [address] Isael Gerri Clarity (U) CLEAR Normal CLEAR [facility] Comment on above: Performed By: #### C BC #### [facility] [address] [place] [address] Isael Gerri Color (U) LT. YELLOW Normal YELLOW [facility] Comment on above: Performed By: #### C BC #### [facility] [address] [place] [address] Isael Gerri ERUAHD A micrscopic examination will be performed if indicated. Normal [facility] Comment on above: Performed By: #### C BC #### [facility] [address] [place] [address] Isael Gerri Glucose Ql (U) Negative Normal NEGATIVE [facility] Comment on above: Performed By: #### C BC #### [facility] [address] [place] [address] Isael Gerri Hemoglobin Ql (U) Negative Normal NEGATIVE [facility] Comment on above: Performed By: #### C BC #### [facility] [address] [place] [address] Isael Gerri Ketones Ql (U) Negative Normal NEGATIVE [facility] Comment on above: Performed By: #### C BC #### [facility] [address] [place] [address] Isael Gerri LEUKOCYTES Negative Normal NEGATIVE [facility] Comment on above: Performed By: #### C BC #### [facility] [address] [place] [address] Isael Gerri Nitrite Ql (U) Negative Normal NEGATIVE [facility] Comment on above: Performed By: #### C BC #### [facility] [address] [address] Isael Talley pH (U) 8.5 [pH] Normal 5-9 [facility] Comment on above: Performed By: #### C BC #### [facility] [address] [place] [address] Isael Talley Protein (U) [Mass/Vol] 30 mg/dL Abnormal NEGATIVE/ TRACE [facility] Comment on above: Performed By: #### C BC #### [facility] [address] [place] [address] Isael Talley SPEC GRAVITY 1.015 Normal 1.005-<=1.025 [facility] Comment on above: Performed By: #### C BC #### [facility] [address] [place] [address] Isael Talley UR MICRO IND INDICATED Normal [facility] Comment on above: Performed By: #### C BC #### [facility] [address] [place] [address] Isael Talley Urobilinogen Qn (U) 0.2 {Miki'U}/dL Normal 0.2 - 1. 0 [facility] Comment on above: Performed By: #### C BC #### [facility] [address] [place] [address] Isael Talley LACTATE/LACTIC ACIDon 2020 Lactate [Moles/Vol] 1.2 mmol/L Normal 0.7-2.0 [facility] Comment on above: Performed By: #### C BC #### [facility] [address] [place] [address] Isael Gerri PROF 14(COMP METB)on 021 Albumin [Mass/Vol] 4.0 g/dL Normal 3.5-5.0 [facility] Comment on above: Performed By: #### C ZEB, CVDAGS #### [facility] [address] [place], [place] [id number] Dr. Venkat Rivas Albumin/Globulin [Mass ratio] 1.0 {ratio} Normal [facility] Comment on above: Performed By: #### C ZEB, CVDAGS #### [facility] [address] [address] [address] Venkat Rivas ALP [Catalytic activity/Vol] 88 U/L Normal 38-126 [facility] Comment on above: Performed By: #### C VDTBH, CVDAGS #### [facility] [address] [address] [address] Venkat Rivas ALT [Catalytic activity/Vol] 24 U/L Normal 9-52 [facility] Comment on above: Performed By: #### C VDTBH, CVDAGS #### [facility] [address] [address] [address] Venkat Rivas Anion gap [Moles/Vol] 12.5 mmol/L Normal [facility] Comment on above: Performed By: #### C VDTBH, CVDAGS #### [facility] [address] [place] [address] Dr. Venkat Rivas AST [Catalytic activity/Vol] 33 U/L Normal 14-36 [facility] Comment on above: Performed By: #### C VDTBH, CVDAGS #### [facility] [address] [address] [address] Venkat Rivas Bilirubin [Mass/Vol] 0.5 mg/dL Normal 0.2-1.3 [facility] Comment on above: Performed By: #### C VDTBH, CVDAGS #### [facility] [address] [address] [address] Venkat Rivas Calcium [Mass/Vol] 9.2 mg/dL Normal 8.4-10.2 [facility] Comment on above: Performed By: #### C VDTBH, CVDAGS #### [facility] [address] [address] [address] Venkat Rivas Chloride [Moles/Vol] 93 mmol/L Critically low 98-107 [facility] Comment on above: Performed By: #### C VDTBH, CVDAGS #### [facility] [address] [address] [address] Venkat Rivas CO2 [Moles/Vol] 32.2 mmol/L Critically high 22.0-30.0 [facility] Comment on above: Performed By: #### C VDTBSofi CVDAGS #### [facility] [address] [place] [address] Dr. Venkat Rivas Creatinine [Mass/Vol] 1.67 mg/dL Critically high 0.52-1.04 [facility] Comment on above: Performed By: #### C VDTBH CVDAGS #### [facility] [address] [place] [address] Dr. Venkat Rivas EGFR-AF MACANESE 35 mL/min/1.73m2 Critically low >=60 [facility] Comment on above: Performed By: #### C VDTBSofi CVDAGS #### [facility] [address] [place] [address] Dr. Venkat Rivas EGFR-NON AF MACANESE 29 mL/min/1.73m2 Critically low >=60 [facility] Comment on above: Performed By: #### C VDTBSofi CVDAGS #### [facility] [address] [place] [address] Dr. Venkat Rivas Globulin (S) [Mass/Vol] 3.9 g/dL Normal [facility] Comment on above: Performed By: #### C VDTBSofi CVDAGS #### [facility] [address] [place] [address] Dr. Venkat Rivas Glucose [Mass/Vol] 100 mg/dL Normal 74-106 [facility] Comment on above: Performed By: #### C VDTBSofi CVDAGS #### [facility] [address] [place] [address] Dr. Venkat Rivas Potassium [Moles/Vol] 2.7 mmol/L Critically low 3.4-5.0 [facility] Comment on above: Performed By: #### C VDTBH, CVDAGS #### [facility] [address] [place] [address] Dr. Venkat Rivas Protein [Mass/Vol] 7.9 g/dL Normal 6.1-8.2 [facility] Comment on above: Performed By: #### C VDTBH, CVDAGS #### [facility] [address] [address] [address] Venkat Rivas Sodium [Moles/Vol] 136 mmol/L Critically low 137-145 [facility] Comment on above: Performed By: #### C VDTBH, CVDAGS #### [facility] [address] [place] [address] Dr. Venkat Rivas Urea nitrogen [Mass/Vol] 17.0 mg/dL Normal 7.0-17.0 [facility] Comment on above: Performed By: #### C VDTBH, CVDAGS #### [facility] [address] [place] [address] Dr. Venkat Rivas Urea nitrogen/Creatinine [Mass ratio] 10.2 mg/mg Normal [facility] Comment on above: Performed By: #### C VDTBH, CVDAGS #### [facility] [address] [place] [address] Dr. Venkat Rivas PROTIMEon 04-06-2021 INR Coag (PPP) [Relative time] {INR} Normal [facility] Comment on above: Performed By: #### H GBHCT #### [facility] [address] [place] [address] Isael Talley INR GUIDELINES SEE BELOW Normal [facility] Comment on above: Result Comment: SHEILA RED INR: 2.0 - 3.0 CONDITIONS NOT LISTED BELOW 2.5 - 3.5 FOR PROSTHETIC HEART VALVE REPLACEMENT 2.5 - 3.5 RECURRENT THROMBOSIS Performed By: #### H GBHCT #### [facility] [address] [place] [address] Isael Talley PT Coag (PPP) [Time] 10.0 s Normal 9.0-11.6 [facility] Comment on above: Performed By: #### H GBHCT #### [facility] [address] [place] [address] Isael Talley PTTon 04-06-2021 aPTT Coag (Bld) [Time] 26.8 s Normal 22.3-36.2 [facility] Comment on above: Performed By: #### H GBHCT #### [facility] [address] [address] Isael Talley SYMPTOMATIC COVID-19 ANTIGEN on 04-06-2021 EUA Statement SEE BELOW Normal [facility] Comment on above: Result Comment: This test has not been FDA cleared or approved, but has been authorized by the FDA under an Emergency Use Authorization (EUA) for use by authorized laboratories certified under CLIA that meet the requirements to perform moderate or high complexity testing. This test has been authorized only for the detection of proteins from SARS-CoV-2, not for any other viruses or pathogens. The emergency use of this test is authorized for the duration of the declaration that circumstances exist justifying the authorization of emergency use of in vitro diagnostic tests for detection and/or diagnosis of Covid-19 under section 564(b)(1) of the Act, 21 U.S.C. 360bbb-3(b)(1), unless the declaration is terminated or authorization is revoked sooner. Performed By: #### C ZEB, KATHARINES #### [facility] [address] [place] [address] Dr. Venkat Rivas SARS-CoV-2 (COVID-19) RNA HUGH+probe Ql (Unsp spec) Negative Normal NEGATIVE [facility] Comment on above: Result Comment: CONF IRMATION BY PCR PENDING PER CDC GUIDELINES/ SYMPTOMATIC PATIENT. Performed By: #### C ZEB, CVDAGS #### [facility] [address] [address] [address] Venkat Rivas TROPONIN, HIGH SENSITIVITYon 04-06-2021 HSTROP 82.8 pg/mL Critically high 4.0-35.5 [facility] Comment on above: Result Comment: CUT- OFF POINTS HAVE BEEN ESTABLISHED BASED ON THE FOURTH UNIVERSAL DEFINITIONS OF MYOCARDIAL INFARCTION. THE UPPER REFERENCE LIMIT (URL) OF TROPONIN, DEFINED THE 99TH PERCENTILE OF cTnI DISTRIBUTION IN A REFERENCE POPULATION, HAS BEEN CONFIRMED THE DECISION THRESHOLD FOR SC DIAGNOSIS. Test Repeated. Critical Value Verified Performed By: #### C NATHANTBSofi, CVDAGS #### [facility] [address] [place] [address] Dr. Venkat Rivas HSTROP 82.6 pg/mL Critically high 4.0-35.5 [facility] Comment on above: Result Comment: CUT- OFF POINTS HAVE BEEN ESTABLISHED BASED ON THE FOURTH UNIVERSAL DEFINITIONS OF MYOCARDIAL INFARCTION. THE UPPER REFERENCE LIMIT (URL) OF TROPONIN, DEFINED THE 99TH PERCENTILE OF cTnI DISTRIBUTION IN A REFERENCE POPULATION, HAS BEEN CONFIRMED THE DECISION THRESHOLD FOR SC DIAGNOSIS. Performed By: #### C VDTBH, CVDAGS #### [facility] [address] [place] [address] Dr. Venkat Rivas TSHon 04-06-2021 TSH 4.693 uIU/mL Critically high 0.470-4.680 [facility] Comment on above: Performed By: #### C VDTBH, AMILCARAGS #### [facility] [address] [place] [address] Dr. Venkat Rivas TSH RANGE SEE BELOW Normal [facility] Comment on above: Result Comment: <0.3 4 UIU/ml HYPERTHYROID 0.34-5.60 UIU/ml EUTHYROID >5.60 UIU/ml HYPOTHYROID Performed By: #### C VDTBH, CVDAGS #### [facility] [address] [place] [address] Dr. Venkat iRvas URINE MICROSCOPIC ONLYon BACTERIA NONE SEEN Normal NONE SEEN [facility] Comment on above: Performed By: #### H GBHCT #### [facility] [address] [place] [address] Isael Gerri Bacteria identified Cx Nom (U) NOT INDICATED Normal [facility] Comment on above: Performed By: #### H GBHCT #### [facility] [address] [place] [address] Isael Gerri CAST NONE SEEN Normal NONE SEEN [facility] Comment on above: Performed By: #### H GBHCT #### [facility] [address] [place] [address] Isael Gerri Crystals LM Nom (Urine sed) NONE SEEN Normal NONE SEEN [facility] Comment on above: Performed By: #### H GBHCT #### [facility] [address] [place] [address] Isael Gerri Epithelial cells LM Ql (Urine sed) RARE Normal NONE SEEN /RARE [facility] Comment on above: Performed By: #### H GBHCT #### [facility] [address] [place] [address] Isael Gerri MUCOUS NONE SEEN Normal NONE SEEN [facility] Comment on above: Performed By: #### H GBHCT #### [facility] [address] [place] [address] Isael Gerri RBC 0-2 Normal 0-2 [facility] Comment on above: Performed By: #### H GBHCT #### [facility] [address] [place] [address] Isael Gerri WBC 0-2 Abnormal NONE SEEN [facility] Comment on above: Performed By: #### H GBHCT #### [facility] [address] [place] [address] Isael Gerri XR CHEST 1 Von 04-06-2021 XR CHEST 1 V EXAM: XR CHEST 1 V HISTORY: Asthenia COMPARISON: 03/29/2021. TECHNIQUE: AP upright portable chest. FINDINGS: Chronic pulmonary hyperinflation. Atherosclerotic calcification of the thoracic aorta. Cardiac size and pulmonary vascularity are within normal limits. The lungs and the costophrenic angles are clear. Advanced degenerative changes of bilateral glenohumeral joints. Diffuse demineralization. IMPRESSION: COPD. No acute cardiopulmonary disease. Electronically authenticated by: YESSY CAMPBELL Date: 2021-04-06 12:24 Normal [facility] BNPon 03-29-2021 Natriuretic peptide B (Bld) [Mass/Vol] 4950.0 pg/mL Critically high <=1,800.0 [facility] Comment on above: Result Comment: crit ical value repeated and verified Performed By: #### L ACT #### [facility] [address] [place] [address] Dr. Venkat Rivas CBC AUTO DIFFon 03-29-2021 BASO # 0.1 103/ul Normal 0.0-0.1 [facility] Comment on above: Performed By: #### H GBHCT #### [facility] [address] [place] [address] Isael Gerri Basophils/100 WBC (Bld) 0.9 % Normal 0.2-2.0 [facility] Comment on above: Performed By: #### H GBHCT #### [facility] [address] [place] [address] Isael Gerri EO # 0.1 103/ul Normal 0.0-0.7 [facility] Comment on above: Performed By: #### H GBHCT #### [facility] [address] [place] [address] Isael Gerri Eosinophils/100 WBC (Bld) 1.2 % Normal 0.9-7.0 [facility] Comment on above: Performed By: #### H GBHCT #### [facility] [address] [place] [address] Isael Gerri Erythrocyte distribution width (RBC) [Ratio] 13.3 % Normal 11.0-15.0 [facility] Comment on above: Performed By: #### H GBHCT #### [facility] [address] [place] [address] Isael Gerri Hematocrit (Bld) [Volume fraction] 34.6 % Critically low 36.0-48.0 [facility] Comment on above: Performed By: #### H GBHCT #### [facility] [address] [place] [address] Isael Gerri Hemoglobin (Bld) [Mass/Vol] 11.6 g/dL Critically low 12.0-16.0 [facility] Comment on above: Performed By: #### H GBHCT #### [facility] [address] [place] [address] Isael Gerri IG # 0.02 10e3/ul Normal 0.00-0.03 [facility] Comment on above: Performed By: #### H GBHCT #### [facility] [address] [place] [address] Isael Gerri IG % 0.3 % Normal 0.0-0.5 [facility] Comment on above: Performed By: #### H GBHCT #### [facility] [address] [address] Isael Gerri LYMPH # 2.5 103/ul Normal 1.2-3.8 [facility] Comment on above: Performed By: #### H GBHCT #### [facility] [address] [place], [place] [id number] Isaelazra Talley Lymphocytes/100 WBC (Bld) 36.5 % Normal 20.5-60.0 [facility] Comment on above: Performed By: #### H GBHCT #### [facility] [address] [place] [address] Isael Talley MANUAL DIFF REQ NO Normal [facility] Comment on above: Performed By: #### H GBHCT #### [facility] [address] [place], [place] [id number] Isaelazra Talley MCH (RBC) [Entitic mass] 29.6 pg Normal 26.7-34.0 [facility] Comment on above: Performed By: #### H GBHCT #### [facility] [address] [place] [address] Isael Talley MCHC (RBC) [Mass/Vol] 33.5 g/dL Normal 29.9-35.2 [facility] Comment on above: Performed By: #### H GBHCT #### [facility] [address] [place] [address] Isael Talley MCV (RBC) [Entitic vol] 88.3 fL Normal 81.0-99.0 [facility] Comment on above: Performed By: #### H GBHCT #### [facility] [address] [place] [address] Isaelazra Caalen MONO # 0.4 103/ul Normal 0.3-0.8 [facility] Comment on above: Performed By: #### H GBHCT #### [facility] [address] [place] [address] Isael Talley Monocytes/100 WBC (Bld) 6.4 % Normal 1.7-12.0 [facility] Comment on above: Performed By: #### H GBHCT #### [facility] [address] [place] [address] Isael Talley NEUT # 3.7 103/ul Normal 1.4-6.5 [facility] Comment on above: Performed By: #### H GBHCT #### [facility] [address] [id number] Isael Talley Neutrophils/100 WBC (Bld) 54.7 % Normal 43.0-75.0 [facility] Comment on above: Performed By: #### H GBHCT #### [facility] [address] [address] Isael Talley Platelet mean volume (Bld) [Entitic vol] 9.5 fL Normal 9.5-13.5 [facility] Comment on above: Performed By: #### H GBHCT #### [facility] [address] [id number] Isael Caalen PLT 273 103/ul Normal 150-450 [facility] Comment on above: Performed By: #### H GBHCT #### [facility] [address] [address] Isael Talley RBC 3.92 106/ul Critically low 4.20-5.40 [facility] Comment on above: Performed By: #### H GBHCT #### [facility] [address] [id number] Isael Talley WBC 6.7 103/ul Normal 4.0-11.0 [facility] Comment on above: Performed By: #### H GBHCT #### [facility] [address] [id number] Isael Talley CULTURE BLOODon 03-29-2021 Microscopic examination of blood, culture Culture Observations: NO GROWTH AT 5 DAYS. Normal [facility] Comment on above: Performed By: #### C VDTBH, CVDAGS #### [facility] [id number] Venkat Rivas Covid-19 PCR ([facility])on 03-05 SARS-CoV-2 (COVID-19) RNA HUGH+probe Ql (Unsp spec) Not detected Normal NOT DETECTED [facility] Comment on above: Result Comment: This test is not yet approved or cleared by the [place] FDA. When there are no FDA-approved or cleared tests available, and other criteria are met, FDA can make tests available under an emergency access mechanism called an Emergency Use Authorization (EUA). The EUA for this test is supported by the Gastroenterology Teacher of Health and Human Service's (HHS's) declaration that circumstances exist to justify the emergency use of in vitro diagnostics for the detection and/or diagnosis of the virus that causes COVID-19. This EUA will remain in effect (meaning this test can be used) for the duration of the COVID-19 declaration justifying emergency of IVDs, unless it is terminated or revoked by FDA (after which the test may no longer be used). When diagnostic testing is negative, the possibility of a false negative should be considered in the context of a patient's recent exposures and the presence of clinical signs and symptoms consistent with SARS-CoV-2. Performed By: #### L ACT #### [facility] [address] [place] [address] Dr. Venkat Rivas ER URINE PROFILEon 1 Bilirubin Ql (U) Negative Normal NEGATIVE [facility] Comment on above: Performed By: #### C VDTBH, CVDAGS #### [facility] [address] [place] [address] Dr. Venkat Rivas Clarity (U) CLEAR Normal CLEAR [facility] Comment on above: Performed By: #### C VDTBH, CVDAGS #### [facility] [address] [place] [address] Dr. Venkat Rivas Color (U) LT. YELLOW Normal YELLOW [facility] Comment on above: Performed By: #### C VDTBH, CVDAGS #### [facility] [address] [place] [address] Dr. Venkat Rivas ERUAHD A micrscopic examination will be performed if indicated. Normal [facility] Comment on above: Performed By: #### C VDTBH, CVDAGS #### [facility] [address] [place] [address] Dr. Venkat Rivas Glucose Ql (U) Negative Normal NEGATIVE [facility] Comment on above: Performed By: #### C VDTBH, CVDAGS #### [facility] [address] [address] [address] Venkat Rivas Hemoglobin Ql (U) TRACE-INTACT Abnormal NEGATIVE [facility] Comment on above: Performed By: #### C VDTBH, CVDAGS #### [facility] [address] [address] [address] Venkat Rivas Ketones Ql (U) Negative Normal NEGATIVE [facility] Comment on above: Performed By: #### C VDTBH, CVDAGS #### [facility] [address] [address] [address] Venkat Rivas LEUKOCYTES Negative Normal NEGATIVE [facility] Comment on above: Performed By: #### C VDTBH, CVDAGS #### [facility] [address] [address] [address] Venkat Rivas Nitrite Ql (U) Negative Normal NEGATIVE [facility] Comment on above: Performed By: #### C VDTBH, CVDAGS #### [facility] [address] [address] [address] Venkat Rivas pH (U) 8.5 [pH] Normal 5-9 [facility] Comment on above: Performed By: #### C VDTBH, CVDAGS #### [facility] [address] [address] [address] Venkat Rivas Protein (U) [Mass/Vol] 100 mg/dL Abnormal NEGATIVE/ TRACE [facility] Comment on above: Performed By: #### C VDTBH, CVDAGS #### [facility] [address] [address] [address] Venkat Rivas SPEC GRAVITY 1.010 Normal 1.005-<=1.025 [facility] Comment on above: Performed By: #### C VDTBH, CVDAGS #### [facility] [address] [address] [address] Venkat Rivas UR MICRO IND INDICATED Normal [facility] Comment on above: Performed By: #### C VDTBH, CVDAGS #### [facility] [address] [place] [address] Dr. Venkat Rivas Urobilinogen Qn (U) 0.2 {Miki'U}/dL Normal 0.2 - 1. 0 [facility] Comment on above: Performed By: #### C VDTBH, CVDAGS #### [facility] [address] [place] [address] Dr. Venkat Rivsa LACTATE/LACTIC ACIDon 2020 Lactate [Moles/Vol] 1.7 mmol/L Normal 0.7-2.0 [facility] Comment on above: Performed By: #### L ACT #### [facility] [address] [place] [address] Dr. Venkat Rivas PROF 14(COMP METB)on 021 Albumin [Mass/Vol] 3.9 g/dL Normal 3.5-5.0 [facility] Comment on above: Performed By: #### C NATHANTBSofi, CVDAGS #### [facility] [address] [place] [address] Dr. Venkat Rivas Albumin/Globulin [Mass ratio] 1.0 {ratio} Normal [facility] Comment on above: Performed By: #### C VDTBSofi, CVDAGS #### [facility] [address] [place] [address] Dr. Venkat Rivas ALP [Catalytic activity/Vol] 88 U/L Normal 38-126 [facility] Comment on above: Performed By: #### C VDTBSofi, CVDAGS #### [facility] [address] [place] [address] Dr. Venkat Rivas ALT [Catalytic activity/Vol] 19 U/L Normal 9-52 [facility] Comment on above: Performed By: #### C VDTBSofi, CVDAGS #### [facility] [address] [place] [address] Dr. Venkat Rivas Anion gap [Moles/Vol] 12.1 mmol/L Normal [facility] Comment on above: Performed By: #### C VDTBH, CVDAGS #### [facility] [address] [address] [address] Venkat Rivas AST [Catalytic activity/Vol] 28 U/L Normal 14-36 [facility] Comment on above: Performed By: #### C VDTBH, CVDAGS #### [facility] [address] [place] [address] Dr. Venkat Rivas Bilirubin [Mass/Vol] 0.6 mg/dL Normal 0.2-1.3 [facility] Comment on above: Performed By: #### C VDTBH, CVDAGS #### [facility] [address] [place] [address] Dr. Venkat Rivas Calcium [Mass/Vol] 9.8 mg/dL Normal 8.4-10.2 [facility] Comment on above: Performed By: #### C VDTBH, CVDAGS #### [facility] [address] [place] [address] Dr. Venkat Rivas Chloride [Moles/Vol] 97 mmol/L Critically low 98-107 [facility] Comment on above: Performed By: #### C VDTBH, CVDAGS #### [facility] [address] [place] [address] Dr. Venkat Rivas CO2 [Moles/Vol] 27.1 mmol/L Normal 22.0-30.0 [facility] Comment on above: Performed By: #### C VDTBH, CVDAGS #### [facility] [address] [place] [address] Dr. Venkat Rivas Creatinine [Mass/Vol] 5.58 mg/dL Critically high 0.52-1.04 [facility] Comment on above: Result Comment: crit ical value repeated and verified Performed By: #### C VDTBH, CVDAGS #### [facility] [address] [place] [address] Dr. Venkat Rivas EGFR-AF MACANESE 9 mL/min/1.73m2 Critically low >=60 [facility] Comment on above: Performed By: #### C VDTBH, CVDAGS #### [facility] [address] [place] [address] Dr. Venkat Rivas EGFR-NON AF MACANESE 7 mL/min/1.73m2 Critically low >=60 [facility] Comment on above: Performed By: #### C ZEB CVDAGS #### [facility] [address] [address] [address] Venkat Rivas Globulin (S) [Mass/Vol] 4.1 g/dL Normal [facility] Comment on above: Performed By: #### C ZEB CVDAGS #### [facility] [address] [address] [address] Venkat Rivas Glucose [Mass/Vol] 100 mg/dL Normal 74-106 [facility] Comment on above: Performed By: #### C ZEB CVDAGS #### [facility] [address] [place] [address] Dr. Venkat Rivas Potassium [Moles/Vol] 3.2 mmol/L Critically low 3.4-5.0 [facility] Comment on above: Performed By: #### C NATHANTBSofi CVDAGS #### [facility] [address] [place] [address] Dr. Venkat Rivas Protein [Mass/Vol] 8.0 g/dL Normal 6.1-8.2 [facility] Comment on above: Performed By: #### C ZEB, CVDAGS #### [facility] [address] [place] [address] Dr. Venkat Rivas Sodium [Moles/Vol] 133 mmol/L Critically low 137-145 [facility] Comment on above: Performed By: #### C VDTBSofi, CVDAGS #### [facility] [address] [place] [address] Dr. Venkat Rivas Urea nitrogen [Mass/Vol] 36.0 mg/dL Critically high 7.0-17.0 [facility] [facility] Comment on above: Performed By: #### C VDTBH, CVDAGS #### [facility] [address] [address] [address] Venkat Rivas Urea nitrogen/Creatinine [Mass ratio] 6.4 mg/mg Normal [facility] Comment on above: Performed By: #### C VDTBH, CVDAGS #### [facility] [address] [place] [address] Dr. Venkat Rivas PROTIMEon 03-29-2021 INR Coag (PPP) [Relative time] 0.95 {INR} Normal [facility] Comment on above: Performed By: #### C VDTBH, CVDAGS #### [facility] [address] [place] [address] Dr. Venkat Rivas INR GUIDELINES SEE BELOW Normal [facility] Comment on above: Result Comment: SHEILA RED INR: 2.0 - 3.0 CONDITIONS NOT LISTED BELOW 2.5 - 3.5 FOR PROSTHETIC HEART VALVE REPLACEMENT 2.5 - 3.5 RECURRENT THROMBOSIS Performed By: #### C VDTBH, CVDAGS #### [facility] [address] [place] [address] Dr. Venkat Rivas PT Coag (PPP) [Time] 10.3 s Normal 9.0-11.6 [facility] Comment on above: Performed By: #### C VDTBH, CVDAGS #### [facility] [address] [place] [address] Dr. Venkat Rivas PTTon 03-29-2021 aPTT Coag (Bld) [Time] 27.3 s Normal 22.3-36.2 [facility] Comment on above: Performed By: #### C VDTBH, CVDAGS #### [facility] [address] [place] [address] Dr. Venkat Rivas SYMPTOMATIC COVID-19 ANTIGEN on 03-29-2021 EUA Statement SEE BELOW Normal [facility] Comment on above: Result Comment: This test has not been FDA cleared or approved, but has been authorized by the FDA under an Emergency Use Authorization (EUA) for use by authorized laboratories certified under CLIA that meet the requirements to perform moderate or high complexity testing. This test has been authorized only for the detection of proteins from SARS-CoV-2, not for any other viruses or pathogens. The emergency use of this test is authorized for the duration of the declaration that circumstances exist justifying the authorization of emergency use of in vitro diagnostic tests for detection and/or diagnosis of Covid-19 under section 564(b)(1) of the Act, 21 U.S.C. 360bbb-3(b)(1), unless the declaration is terminated or authorization is revoked sooner. Performed By: #### L ACT #### [facility] [address] [address] [address] Venkat Rivas SARS-CoV-2 (COVID-19) RNA HUGH+probe Ql (Unsp spec) Negative Normal NEGATIVE [facility] Comment on above: Result Comment: CONF IRMATION BY PCR PENDING PER CDC GUIDELINES/ SYMPTOMATIC PATIENT. Performed By: #### L ACT #### [facility] [address] [address] [address] Venkat Rivas TROPONIN, HIGH SENSITIVITYon 03-29-2021 HSTROP 80.7 pg/mL Critically high 4.0-35.5 [facility] Comment on above: Result Comment: CUT- OFF POINTS HAVE BEEN ESTABLISHED BASED ON THE FOURTH UNIVERSAL DEFINITIONS OF MYOCARDIAL INFARCTION. THE UPPER REFERENCE LIMIT (URL) OF TROPONIN, DEFINED THE 99TH PERCENTILE OF cTnI DISTRIBUTION IN A REFERENCE POPULATION, HAS BEEN CONFIRMED THE DECISION THRESHOLD FOR SC DIAGNOSIS. criticlal value repeated and verified Performed By: #### C KATHARINE CARRINGTONS #### [facility] [address] [address] [address] Venkat Rivas HSTROP 84.9 pg/mL Critically high 4.0-35.5 [facility] Comment on above: Result Comment: CUT- OFF POINTS HAVE BEEN ESTABLISHED BASED ON THE FOURTH UNIVERSAL DEFINITIONS OF MYOCARDIAL INFARCTION. THE UPPER REFERENCE LIMIT (URL) OF TROPONIN, DEFINED THE 99TH PERCENTILE OF cTnI DISTRIBUTION IN A REFERENCE POPULATION, HAS BEEN CONFIRMED THE DECISION THRESHOLD FOR SC DIAGNOSIS. critical value repeated and verified Performed By: #### C ZEB CVDAGS #### [facility] [address] [address] [address] Venkat Rivas TSHon 03-29-2021 TSH 5.079 uIU/mL Critically high 0.470-4.680 [facility] Comment on above: Performed By: #### C NATHANTBSofi CVDAGS #### [facility] [address] [address] [address] Venkat Rivas TSH RANGE SEE BELOW Normal [facility] Comment on above: Result Comment: <0.3 4 UIU/ml HYPERTHYROID 0.34-5.60 UIU/ml EUTHYROID >5.60 UIU/ml HYPOTHYROID Performed By: #### C VDTBH, CVDAGS #### [facility] [address] [address] [address] Venkat Rivas URINE MICROSCOPIC ONLYon BACTERIA NONE SEEN Normal NONE SEEN [facility] Comment on above: Performed By: #### C VDTBH, CVDAGS #### [facility] [address] [place] [address] Dr. Venkat Rivas Bacteria identified Cx Nom (U) NOT INDICATED Normal [facility] Comment on above: Performed By: #### C VDTBH, CVDAGS #### [facility] [address] [place] [address] Dr. Venkat Rivas CAST NONE SEEN Normal NONE SEEN [facility] Comment on above: Performed By: #### C VDTBH, CVDAGS #### [facility] [address] [address] [address] Venkat Rivas Crystals LM Nom (Urine sed) NONE SEEN Normal NONE SEEN [facility] Comment on above: Performed By: #### C VDTBH, CVDAGS #### [facility] [address] [place] [address] Dr. Venkat Rivas Epithelial cells LM Ql (Urine sed) FEW Abnormal NONE SEEN /RARE [facility] Comment on above: Performed By: #### C VDTBH, CVDAGS #### [facility] [address] [place] [address] Dr. Venkat Rivas MUCOUS NONE SEEN Normal NONE SEEN [facility] Comment on above: Performed By: #### C VDTBH, CVDAGS #### [facility] [address] [place] [address] Dr. Venkat Rivas RBC 2-5 Abnormal 0-2 [facility] Comment on above: Performed By: #### C VDTBH, CVDAGS #### [facility] [address] [address] [address] Venkat Rivas WBC 2-5 Abnormal NONE SEEN [facility] Comment on above: Performed By: #### C VDTB, CVDAGS #### [facility] [address] [address] [address] Venkat Rivas XR CHEST 1 Von 03-29-2021 XR CHEST 1 V EXAM: XR CHEST 1 V HISTORY: Asthenia weakness, dialysis patient. COMPARISON: None. FINDINGS: Pulmonary hyperinflation. Patchy right basilar opacity. The cardiomediastinal silhouette is mildly prominent. The costophrenic angles are sharp. There is no evidence of pneumothorax. No acute osseous abnormality. IMPRESSION: Patchy right basilar opacity which may represent atelectasis or consolidation.. Electronically authenticated by: RAUL TO Date: 2021-03-29 13:28 Normal [facility] POTASSIUMon 08-12-2020 Potassium [Moles/Vol] 3.8 mmol/L Normal 3.4-5.0 [facility] Comment on above: Performed By: #### H GBHCT #### [facility] [address] [place] [address] Isaelazra Talley HEPATITIS PANEL, ACUTEon HBsAg Screen Negative Normal Negative [facility] Comment on above: Performed By: #### H GBHCT #### [facility] [address] [place] [address] Isael Gerri Hep A Ab, IgM Negative Normal Negative [facility] Comment on above: Performed By: #### H GBHCT #### [facility] [address] [address] Isael Gerri Hep B Core Ab, IgM Negative Normal Negative [facility] Comment on above: Performed By: #### H GBHCT #### [facility] [address] [address] Isael Gerri Hep C Virus Ab <0.1 Normal 0.0-0.9 [facility] Comment on above: Result Comment: Nega tive: < 0.8 Indeterminate: 0.8 - 0.9 Positive: > 0.9 . The CDC recommends that a positive HCV antibody result be followed up with a HCV Nucleic Acid Amplification test (170476). Performed By: #### H GBHCT #### [facility] [address] [place], [place] [id number] Isael Gerri PTH INTACTon 08-05-2020 PTH, Intact 266 pg/mL Critically high 15-[address] [facility] Comment on above: Performed By: #### L ACT #### [facility] [address] [place], [place] [address] Dr. Venkat Rivas CBC AUTO DIFFon 08-04-2020 BASO # 0.1 103/ul Normal 0.0-0.1 [facility] Comment on above: Performed By: #### C BC #### [facility] [address] [place], [place] [address] Isael Gerri Basophils/100 WBC (Bld) 0.7 % Normal 0.2-2.0 [facility] Comment on above: Performed By: #### C BC #### [facility] [address] [place], [place] [address] Isael Gerri EO # 0.1 103/ul Normal 0.0-0.7 [facility] Comment on above: Performed By: #### C BC #### [facility] [address] [place], [place] [address] Isael Gerri Eosinophils/100 WBC (Bld) 0.6 % Critically low 0.9-7.0 [facility] Comment on above: Performed By: #### C BC #### [facility] [address] [place], [place] [address] Isael Gerri Erythrocyte distribution width (RBC) [Ratio] 13.8 % Normal 11.0-15.0 [facility] Comment on above: Performed By: #### C BC #### [facility] [address] [place], [place] [address] Isael Gerri Hematocrit (Bld) [Volume fraction] 32.3 % Critically low 36.0-48.0 [facility] Comment on above: Performed By: #### C BC #### [facility] [address] [place], [place] [address] Isael Gerri Hemoglobin (Bld) [Mass/Vol] 10.4 g/dL Critically low 12.0-16.0 [facility] Comment on above: Performed By: #### C BC #### [facility] [address] [place] [address] Isael Talley IG # 0.05 10e3/ul Critically high 0.00-0.03 [facility] Comment on above: Performed By: #### C BC #### [facility] [address] [place] [address] Isael Talley IG % 0.6 % Critically high 0.0-0.5 [facility] Comment on above: Performed By: #### C BC #### [facility] [address] [place] [address] Isael Talley LYMPH # 1.2 103/ul Normal 1.2-3.8 [facility] Comment on above: Performed By: #### C BC #### [facility] [address] [place] [address] Isael Talley Lymphocytes/100 WBC (Bld) 14.3 % Critically low 20.5-60.0 [facility] Comment on above: Performed By: #### C BC #### [facility] [address] [place] [address] Isael Talley MANUAL DIFF REQ NO Normal [facility] Comment on above: Performed By: #### C BC #### [facility] [address] [place] [address] Isael Talley MCH (RBC) [Entitic mass] 31.0 pg Normal 26.7-34.0 [facility] Comment on above: Performed By: #### C BC #### [facility] [address] [place] [address] Isael Talley MCHC (RBC) [Mass/Vol] 32.2 g/dL Normal 29.9-35.2 [facility] Comment on above: Performed By: #### C BC #### [facility] [address] [place] [address] Isael Talley MCV (RBC) [Entitic vol] 96.4 fL Normal 81.0-99.0 [facility] Comment on above: Performed By: #### C BC #### [facility] [address], [place] [address] Isael Caalen MONO # 0.5 103/ul Normal 0.3-0.8 [facility] Comment on above: Performed By: #### C BC #### [facility] [address] [id number] Isael Caalen Monocytes/100 WBC (Bld) 6.3 % Normal 1.7-12.0 [facility] Comment on above: Performed By: #### C BC #### [facility] [address] [id number] Isael Gerri NEUT # 6.7 103/ul Critically high 1.4-6.5 [facility] Comment on above: Performed By: #### C BC #### [facility] [address] [place], [place] [address] Isael Caalen Neutrophils/100 WBC (Bld) 77.5 % Critically high 43.0-75.0 [facility] Comment on above: Performed By: #### C BC #### [facility] [address] [id number] Isael Talley Platelet mean volume (Bld) [Entitic vol] 9.2 fL Critically low 9.5-13.5 [facility] Comment on above: Performed By: #### C BC #### [facility] [address] [place], [place] [address] Isael Gerri PLT 370 103/ul Normal 150-450 [facility] Comment on above: Performed By: #### C BC #### [facility] [address] [id number] Isael Gerri RBC 3.35 106/ul Critically low 4.20-5.40 [facility] Comment on above: Performed By: #### C BC #### [facility] [address] [id number] Isael Gerri WBC 8.6 103/ul Normal 4.0-11.0 [facility] Comment on above: Performed By: #### C BC #### [facility] [address], [place] [address] Isael Gerri MAGNESIUMon 08-04-2020 Magnesium [Mass/Vol] 2.2 mg/dL Normal 1.6-2.3 [facility] Comment on above: Performed By: #### C BC #### [facility] [address], [place] [address] Isael Gerri RENAL FUNCTION PANELon 08-04 Albumin [Mass/Vol] 4.0 g/dL Normal 3.5-5.0 [facility] Comment on above: Performed By: #### C BC #### [facility] [address] [id number] Isael Gerri Calcium [Mass/Vol] 9.9 mg/dL Normal 8.4-10.2 [facility] Comment on above: Performed By: #### C BC #### [facility] [address] [place], [place] [address] Isael Gerri Chloride [Moles/Vol] 100 mmol/L Normal 98-107 [facility] Comment on above: Performed By: #### C BC #### [facility] [address] [phone] Isael Gerri CO2 [Moles/Vol] 24.4 mmol/L Normal 22.0-30.[address] [facility] Comment on above: Performed By: #### C BC #### [facility] [address] [place], [place] [address] Isael Gerri Creatinine [Mass/Vol] 4.75 mg/dL Critically high 0.52-1.04 [facility] Comment on above: Performed By: #### C BC #### [facility] [address], [place] [address] Isael Gerri EGFR-AF MACANESE 11 mL/min/1.73m2 Critically low >=60 [facility] Comment on above: Performed By: #### C BC #### [facility] [address], [place] [address] Isael Gerri EGFR-NON AF MACANESE 9 mL/min/1.73m2 Critically low >=60 [facility] Comment on above: Performed By: #### C BC #### [facility] [address], [place] [address] Isael Gerri Glucose [Mass/Vol] 129 mg/dL Critically high 74-106 [facility] Comment on above: Performed By: #### C BC #### [facility] [address], [place] [address] Isael Gerri Phosphate [Mass/Vol] 3.8 mg/dL Normal 2.5-4.5 [facility] Comment on above: Performed By: #### C BC #### [facility] [address] [id number] Isael Gerri Potassium [Moles/Vol] 3.4 mmol/L Normal 3.4-5.0 [facility] Comment on above: Performed By: #### C BC #### [facility] [address] [place], [place] [address] Isael Gerri Sodium [Moles/Vol] 140 mmol/L Normal 137-145 [facility] Comment on above: Performed By: #### C BC #### [facility] [address] [address] Isael Gerri Urea nitrogen [Mass/Vol] 48.0 mg/dL Critically high 7.0-17.0 [facility] Comment on above: Performed By: #### C BC #### [facility] [address] [place], [place] [phone] Isael Gerri URIC ACID SERUMon 08-04-2020 Urate [Mass/Vol] 7.9 mg/dL Critically high 2.5-6.2 [facility] Comment on above: Performed By: #### C BC #### [facility] [address] [place] [address] Isael Egrri VITAMIN D 25 OHon 08-04-2020 VIT D 25-OH 87.0 ng/mL Normal [facility] Comment on above: Performed By: #### L ACT #### [facility] [address] [place] [address] [address] [address] Venkat Rivas VIT D RANGES SEE BELOW Normal [facility] Comment on above: Result Comment: <20 ng/mL Vit D deficient 20 - <30 ng/mL Vit D insufficient 30 - 100 ng/mL Vit D sufficient >100 ng/mL Potential Toxicity Performed By: #### L ACT #### [facility] [address] [place] [address] Dr. Venkat Rivas PTH INTACTon 07-23-2020 PTH, Intact 394 pg/mL Critically high 15-[address] [facility] Comment on above: Performed By: #### C VDTBH, CVDAGS #### [facility] [address] [place] [address] Dr. Venkat Rivas CBC AUTO DIFFon 07-22-2020 BASO # 0.1 103/ul Normal 0.0-0.1 [facility] Comment on above: Performed By: #### C BC #### [facility] [address] [place] [address] Isael Gerri Basophils/100 WBC (Bld) 0.8 % Normal 0.2-2.0 [facility] Comment on above: Performed By: #### C BC #### [facility] [address] [place] [address] Iseal Gerri EO # 0.1 103/ul Normal 0.0-0.7 [facility] Comment on above: Performed By: #### C BC #### [facility] [address] [place] [address] Isael Gerri Eosinophils/100 WBC (Bld) 1.5 % Normal 0.9-7.0 [facility] Comment on above: Performed By: #### C BC #### [facility] [address] [place], [place] [phone] Isael Gerri Erythrocyte distribution width (RBC) [Ratio] 14.3 % Normal 11.0-15.0 [facility] Comment on above: Performed By: #### C BC #### [facility] [address] [place], [place] [address] Isael Gerri Hematocrit (Bld) [Volume fraction] 31.3 % Critically low 36.0-48.0 [facility] Comment on above: Performed By: #### C BC #### [facility] [address] [address] Isaelazra Talley Hemoglobin (Bld) [Mass/Vol] 10.1 g/dL Critically low 12.0-16.0 [facility] Comment on above: Performed By: #### C BC #### [facility] [address] [place] [address] Isaelazra Talley IG # 0.02 10e3/ul Normal 0.00-0.03 [facility] Comment on above: Performed By: #### C BC #### [facility] [address] [place] [address] Isael Gerri IG % 0.3 % Normal 0.0-0.5 [facility] Comment on above: Performed By: #### C BC #### [facility] [address] [place] [address] Isael Gerri LYMPH # 2.2 103/ul Normal 1.2-3.8 [facility] Comment on above: Performed By: #### C BC #### [facility] [address] [place] [address] Isael Talley Lymphocytes/100 WBC (Bld) 29.6 % Normal 20.5-60.0 [facility] Comment on above: Performed By: #### C BC #### [facility] [address] [place] [address] Isael Talley MANUAL DIFF REQ NO Normal [facility] Comment on above: Performed By: #### C BC #### [facility] [address] [place] [address] Isaelazra Talley MCH (RBC) [Entitic mass] 30.6 pg Normal 26.7-34.0 [facility] Comment on above: Performed By: #### C BC #### [facility] [address] [place] [address] Isaelazra Talley MCHC (RBC) [Mass/Vol] 32.3 g/dL Normal 29.9-35.2 [facility] Comment on above: Performed By: #### C BC #### [facility] [address] [place] [address] Isaelazra Caalen MCV (RBC) [Entitic vol] 94.8 fL Normal 81.0-99.0 [facility] Comment on above: Performed By: #### C BC #### [facility] [address] [place], [place] [address] Isael Talley MONO # 0.4 103/ul Normal 0.3-0.8 [facility] Comment on above: Performed By: #### C BC #### [facility] [address] [place], [place] [address] Isaelazra Caalen Monocytes/100 WBC (Bld) 5.3 % Normal 1.7-12.0 [facility] Comment on above: Performed By: #### C BC #### [facility] [address] [place] [address] Isaelazra Caalen NEUT # 4.7 103/ul Normal 1.4-6.5 [facility] Comment on above: Performed By: #### C BC #### [facility] [address] [place] [address] Isael Talley Neutrophils/100 WBC (Bld) 62.5 % Normal 43.0-75.0 [facility] Comment on above: Performed By: #### C BC #### [facility] [address] [place], [place] [address] Isael Talley Platelet mean volume (Bld) [Entitic vol] 9.6 fL Normal 9.5-13.5 [facility] Comment on above: Performed By: #### C BC #### [facility] [address] [place], [place] [address] Isael Gerri PLT 331 103/ul Normal 150-450 [facility] Comment on above: Performed By: #### C BC #### [facility] [address] [place], [place] [address] Isael Gerri RBC 3.30 106/ul Critically low 4.20-5.40 [facility] Comment on above: Performed By: #### C BC #### [facility] [address] [place] [address] Isael Gerri WBC 7.5 103/ul Normal 4.0-11.0 [facility] Comment on above: Performed By: #### C BC #### [facility] [address] [place] [address] Isael Talley FERRITINon 07-22-2020 Ferritin [Mass/Vol] 583.0 ng/mL Critically high 11.1-264.0 [facility] Comment on above: Performed By: #### F ETIBC, FERR, VITAD #### [facility] [address] [place] [address] Isael Gerri IRON AND TIBCon 07-22-2020 % SATURATION 42.1 % Normal [facility] Comment on above: Performed By: #### F ETIBC, FERR, VITAD #### [facility] [address] [place] [address] Isael Gerri Iron [Mass/Vol] 114.0 ug/dL Normal 37.0-170.[address] [facility] Comment on above: Performed By: #### F ETIBC, FERR, VITAD #### [facility] [address] [place] [address] Isaelazra Talley TIBC DIRECT 271.0 ug/dL Normal 261.0-497.0 [facility] Comment on above: Performed By: #### F ETIBC, FERR, VITAD #### [facility] [address] [place] [address] Isael Talley RENAL FUNCTION PANELon 07-22 Albumin [Mass/Vol] 4.0 g/dL Normal 3.5-5.0 [facility] Comment on above: Performed By: #### C VDTBH, CVDAGS #### [facility] [address] [place] [address] Dr. Venkat Rivas Calcium [Mass/Vol] 9.0 mg/dL Normal 8.4-10.2 [facility] Comment on above: Performed By: #### C VDTBH, CVDAGS #### [facility] [address] [place] [address] Dr. Venkat Rivas Chloride [Moles/Vol] 105 mmol/L Normal 98-107 [facility] Comment on above: Performed By: #### C VDTBH, CVDAGS #### [facility] [address] [address] [address] Venkat Rivas CO2 [Moles/Vol] 22.1 mmol/L Normal 22.0-30.0 [facility] Comment on above: Performed By: #### C VDTBH, CVDAGS #### [facility] [address] [address] [address] Venkat Rivas Creatinine [Mass/Vol] 4.64 mg/dL Critically high 0.52-1.04 [facility] Comment on above: Performed By: #### C VDTBH, CVDAGS #### [facility] [address] [address] [address] Venkat Rivas EGFR-AF MACANESE Normal >=60 [facility] Comment on above: Performed By: #### C VDTBH, CVDAGS #### [facility] [address] [place] [address] Dr. Venkat Rivas EGFR-NON AF MACANESE 3 mL/min/1.73m2 Critically low >=60 [facility] Comment on above: Performed By: #### C VDTBH, CVDAGS #### [facility] [address] [address] [address] Venkat Rivas Glucose [Mass/Vol] 140 mg/dL Critically high 74-106 [facility] Comment on above: Performed By: #### C VDTBH, CVDAGS #### [facility] [address] [address] [address] Venkat Rivas Phosphate [Mass/Vol] 6.1 mg/dL Critically high 2.5-4.5 [facility] Comment on above: Result Comment: test repeated critical value verified Performed By: #### C VDTBH, CVDAGS #### [facility] [address] [address] [address] Venkat Rivas Potassium [Moles/Vol] 3.7 mmol/L Normal 3.4-5.0 [facility] Comment on above: Performed By: #### C VDTBH, CVDAGS #### [facility] [address] [address] [address] Venkat Rivas Sodium [Moles/Vol] 143 mmol/L Normal 137-145 [facility] Comment on above: Performed By: #### C VDTBSofi CVDAGS #### [facility] [address] [place] [address] Dr. Venkat Rivas Urea nitrogen [Mass/Vol] 64.0 mg/dL Critically high 7.0-17.0 [facility] Comment on above: Performed By: #### C NATHANTBSofi CVDAGS #### [facility] [address] [place] [address] Dr. Venkat Rivas PTH INTACTon 06-25-2020 PTH, Intact 289 pg/mL Critically high 15-65 [facility] Comment on above: Performed By: #### H GBHCT #### [facility] [address] [place] [address] Isael Gerri FERRITINon 06-24-2020 Ferritin [Mass/Vol] 656.0 ng/mL Critically high 11.1-264.0 [facility] Comment on above: Performed By: #### F ETIBC, FERR, VITAD #### [facility] [address] [place] [address] Isael Gerri HEMOGLOBIN AND HEMATOCRITon 06-24-2020 Hematocrit (Bld) [Volume fraction] 32.2 % Critically low 36.0-48.0 [facility] Comment on above: Performed By: #### H GBHCT #### [facility] [address] [place] [address] Isael Gerri Hemoglobin (Bld) [Mass/Vol] 10.4 g/dL Critically low 12.0-16.0 [facility] Comment on above: Performed By: #### H GBHCT #### [facility] [address] [place] [address] Isael Gerri IRON AND TIBCon 06-24-2020 % SATURATION 43.8 % Normal [facility] Comment on above: Performed By: #### F ETIBC, FERR, VITAD #### [facility] [address] [place] [address] Isael Gerri Iron [Mass/Vol] 117.0 ug/dL Normal 37.0-170.[address] [facility] Comment on above: Performed By: #### F KASHIF CORADO VITAD #### [facility] [address] [place] [address] Isael Gerri TIBC DIRECT 267.0 ug/dL Normal 261.0-497.0 [facility] Comment on above: Performed By: #### F KASHIF CORADO VITAD #### [facility] [address] [place] [address] Isael Gerri RENAL FUNCTION PANELon 06-24 Albumin [Mass/Vol] 3.9 g/dL Normal 3.5-5.0 [facility] Comment on above: Performed By: #### R ENAL #### [facility] [address] [place] [address] Isael Gerri Calcium [Mass/Vol] 9.5 mg/dL Normal 8.4-10.2 [facility] Comment on above: Performed By: #### R ENAL #### [facility] [address] [place] [address] Isael Gerri Chloride [Moles/Vol] 105 mmol/L Normal 98-107 [facility] Comment on above: Performed By: #### R ENAL #### [facility] [address] [place] [address] Isael Gerri CO2 [Moles/Vol] 24.3 mmol/L Normal 22.0-30.[address] [facility] Comment on above: Performed By: #### R ENAL #### [facility] [address] [place] [address] Isael Gerri Creatinine [Mass/Vol] 4.19 mg/dL Critically high 0.52-1.04 [facility] Comment on above: Performed By: #### R ENAL #### [facility] [address] [place], [place] [id number] Isael Gerri EGFR-AF MACANESE 12 mL/min/1.73m2 Critically low >=60 [facility] Comment on above: Performed By: #### R ENAL #### [facility] [address] [place], [place] [id number] Isael Gerri EGFR-NON AF MACANESE 10 mL/min/1.73m2 Critically low >=60 [facility] Comment on above: Performed By: #### R ENAL #### [facility] [address] [place] [address] Isael Gerri Glucose [Mass/Vol] 111 mg/dL Critically high 74-106 [facility] Comment on above: Performed By: #### R ENAL #### [facility] [address] [place], [place] [id number] Isael Gerri Phosphate [Mass/Vol] 5.0 mg/dL Critically high 2.5-4.5 [facility] Comment on above: Performed By: #### R ENAL #### [facility] [address] [place] [address] Isael Gerri Potassium [Moles/Vol] 4.1 mmol/L Normal 3.4-5.0 [facility] Comment on above: Performed By: #### R ENAL #### [facility] [address] [place] [address] Isael Gerri Sodium [Moles/Vol] 143 mmol/L Normal 137-145 [facility] Comment on above: Performed By: #### R ENAL #### [facility] [address] [place], [place] [address] Isael Gerri Urea nitrogen [Mass/Vol] 61.0 mg/dL Critically high 7.0-17.0 [facility] Comment on above: Performed By: #### R ENAL #### [facility] [address] [place], [place] [address] Isael Gerri VITAMIN D 25 OHon 06-24-2020 VIT D 25-OH 80.5 ng/mL Normal [facility] Comment on above: Performed By: #### F ETIBC, FERR, VITAD #### [facility] [address] [place], [place] [address] Isael Gerri VIT D RANGES SEE BELOW Normal [facility] Comment on above: Result Comment: <20 ng/mL Vit D deficient 20 - <30 ng/mL Vit D insufficient 30 - 100 ng/mL Vit D sufficient >100 ng/mL Potential Toxicity Performed By: #### F ETIBC, FERR, VITAD #### [facility] [address], [place] [address] Isael Gerri RENAL FUNCTION PANELon 06-12 Albumin [Mass/Vol] 4.0 g/dL Normal 3.5-5.0 [facility] Comment on above: Performed By: #### C BC #### [facility] [address] [address] Isael Gerri Calcium [Mass/Vol] 9.2 mg/dL Normal 8.4-10.2 [facility] Comment on above: Performed By: #### C BC #### [facility] [address] [address] Isael Gerri Chloride [Moles/Vol] 99 mmol/L Normal 98-107 [facility] Comment on above: Performed By: #### C BC #### [facility] [address] [place] [address] Isael Gerri CO2 [Moles/Vol] 25.4 mmol/L Normal 22.0-30.0 [facility] Comment on above: Performed By: #### C BC #### [facility] [address] [address] Isael Gerri Creatinine [Mass/Vol] 5.04 mg/dL Critically high 0.52-1.04 [facility] Comment on above: Result Comment: TEST REPEAT, CRITICAL VALUE VERIFIED Performed By: #### C BC #### [facility] [address] [address] Isael Gerri EGFR-AF MACANESE Normal >=60 [facility] Comment on above: Performed By: #### C BC #### [facility] [address] [address] Isael Gerri EGFR-NON AF MACANESE Normal >=60 [facility] Comment on above: Performed By: #### C BC #### [facility] [address] [address] Isael Gerri Glucose [Mass/Vol] 120 mg/dL Critically high 74-106 [facility] Comment on above: Performed By: #### C BC #### [facility] [address] [place], [place] [address] Isael Gerri Phosphate [Mass/Vol] 7.2 mg/dL Critically high 2.5-4.5 [facility] Comment on above: Result Comment: TEST REPEAT, CRITICAL VALUE VERIFIED Performed By: #### C BC #### [facility] [address] [place] [address] Isael Gerri Potassium [Moles/Vol] 3.0 mmol/L Critically low 3.4-5.0 [facility] Comment on above: Performed By: #### C BC #### [facility] [address] [place] [address] Isael Gerri Sodium [Moles/Vol] 140 mmol/L Normal 137-145 [facility] Comment on above: Performed By: #### C BC #### [facility] [address] [place] [address] Isael Gerri Urea nitrogen [Mass/Vol] 81.0 mg/dL Critically high 7.0-17.0 [facility] Comment on above: Result Comment: TEST REPEAT, CRITICAL VALUE VERIFIED Performed By: #### C BC #### [facility] [address] [place] [address] Isael Gerri PTH INTACTon 05-30-2020 PTH, Intact 311 pg/mL Critically high 15-65 [facility] Comment on above: Performed By: #### L ACT #### [facility] [address] [place] [address] Dr. Venkat Rivas FERRITINon 05-28-2020 Ferritin [Mass/Vol] 695.0 ng/mL Critically high 11.1-264.0 [facility] Comment on above: Performed By: #### C BC #### [facility] [address] [place] [address] Isael Gerri HEMOGRAM AND PLATELon 2019 Hematocrit (Bld) [Volume fraction] 33.0 % Critically low 36.0-48.0 [facility] Comment on above: Performed By: #### C VDTBH, CVDAGS #### [facility] [address] [place] [address] Dr. Venkat Rivas Hemoglobin (Bld) [Mass/Vol] 10.7 g/dL Critically low 12.0-16.0 [facility] Comment on above: Performed By: #### C VDTBH, CVDAGS #### [facility] [address] [place] [address] Dr. Venkat Rivas MCH (RBC) [Entitic mass] 29.6 pg Normal 26.7-34.0 [facility] Comment on above: Performed By: #### C VDTBH, CVDAGS #### [facility] [address] [place] [address] Dr. Venkat Rivas MCHC (RBC) [Mass/Vol] 32.4 g/dL Normal 29.9-35.2 [facility] Comment on above: Performed By: #### C VDTBH, CVDAGS #### [facility] [address] [place] [address] Dr. Venkat Rivas MCV (RBC) [Entitic vol] 91.2 fL Normal 81.0-99.0 [facility] Comment on above: Performed By: #### C VDTBH, CVDAGS #### [facility] [address] [place] [address] Dr. Venkat Rivas PLT 302 103/ul Normal 150-450 [facility] Comment on above: Performed By: #### C VDTBH, CVDAGS #### [facility] [address] [place] [address] Dr. Venkat Rivas RBC 3.62 106/ul Critically low 4.20-5.40 [facility] Comment on above: Performed By: #### C VDTBH, CVDAGS #### [facility] [address] [place] [address] Dr. Venkat Rivas WBC 7.8 103/ul Normal 4.0-11.0 [facility] Comment on above: Performed By: #### C VDTBH, CVDAGS #### [facility] [address] [place] [address] Dr. Venkat Rivas IRON AND TIBCon 05-28-2019 % SATURATION 37.2 % Normal [facility] Comment on above: Performed By: #### C BC #### [facility] [address] [place] [address] Isael Gerri Iron [Mass/Vol] 102.0 ug/dL Normal 37.0-170.0 [facility] Comment on above: Performed By: #### C BC #### [facility] [address] [place], [place] [address] Isael Gerri TIBC DIRECT 274.0 ug/dL Normal 261.0-497.0 [facility] Comment on above: Performed By: #### C BC #### [facility] [address] [place] [address] Isael Gerri LIVER PROFILEon 05-28-2020 Albumin [Mass/Vol] 3.9 g/dL Normal 3.5-5.0 [facility] Comment on above: Performed By: #### C BC #### [facility] [address] [place], [place] [address] Isael Gerri Performed By: #### H GBHCT #### [facility] [address] [place], [place] [address] Isael Gerri Albumin/Globulin [Mass ratio] 0.9 {ratio} Normal [facility] Comment on above: Performed By: #### C BC #### [facility] [address] [place], [place] [address] Isael Gerri ALP [Catalytic activity/Vol] 104 U/L Normal 38-126 [facility] Comment on above: Performed By: #### C BC #### [facility] [address] [place] [address] Isael Gerri ALT [Catalytic activity/Vol] 22 U/L Normal 9-52 [facility] Comment on above: Performed By: #### C BC #### [facility] [address] [place], [place] [phone] Isael Gerri AST [Catalytic activity/Vol] 27 U/L Normal 14-36 [facility] Comment on above: Performed By: #### C BC #### [facility] [address] [place], [place] [address] Isael Gerri BILI, CONJUGATED 0.1 mg/dL Normal 0.0-0.3 [facility] Comment on above: Performed By: #### C BC #### [facility] [address] [place] [address] Isael Gerri Bilirubin [Mass/Vol] 0.3 mg/dL Normal 0.2-1.3 [facility] Comment on above: Performed By: #### C BC #### [facility] [address] [place], [place] [phone] Isael Gerri Globulin (S) [Mass/Vol] 4.5 g/dL Normal [facility] Comment on above: Performed By: #### C BC #### [facility] [address] [place] [address] Isael Gerri Protein [Mass/Vol] 8.4 g/dL Critically high 6.1-8.2 [facility] Comment on above: Performed By: #### C BC #### [facility] [address] [place] [address] Isael Gerri RENAL FUNCTION PANELon 05-28 Calcium [Mass/Vol] 9.4 mg/dL Normal 8.4-10.2 [facility] Comment on above: Performed By: #### H GBHCT #### [facility] [address] [place] [address] Isael Gerri Chloride [Moles/Vol] 102 mmol/L Normal 98-107 [facility] Comment on above: Performed By: #### H GBHCT #### [facility] [address] [place] [address] Isael Gerri CO2 [Moles/Vol] 23.5 mmol/L Normal 22.0-30.0 [facility] Comment on above: Performed By: #### H GBHCT #### [facility] [address] [place], [place] [address] Isael Gerri Creatinine [Mass/Vol] 4.54 mg/dL Critically high 0.52-1.04 [facility] Comment on above: Performed By: #### H GBHCT #### [facility] [address] [place], [place] [address] Isael Gerri EGFR-AF MACANESE 11 mL/min/1.73m2 Critically low >=60 [facility] Comment on above: Performed By: #### H GBHCT #### [facility] [address] [id number] Isael Gerri EGFR-NON AF MACANESE 9 mL/min/1.73m2 Critically low >=60 [facility] Comment on above: Performed By: #### H GBHCT #### [facility] [address] [address] Isael Gerri Glucose [Mass/Vol] 117 mg/dL Critically high 74-106 [facility] Comment on above: Performed By: #### H GBHCT #### [facility] [address] [address] Isael Gerri Phosphate [Mass/Vol] 5.5 mg/dL Critically high 2.5-4.5 [facility] Comment on above: Performed By: #### H GBHCT #### [facility] [address] [address] Isael Gerri Potassium [Moles/Vol] 3.6 mmol/L Normal 3.4-5.0 [facility] Comment on above: Performed By: #### H GBHCT #### [facility] [address] [place] [address] Isael Gerri Sodium [Moles/Vol] 139 mmol/L Normal 137-145 [facility] Comment on above: Performed By: #### H GBHCT #### [facility] [address] [address] Isael Gerri Urea nitrogen [Mass/Vol] 70.0 mg/dL Critically high 7.0-17.0 [facility] Comment on above: Performed By: #### H GBHCT #### [facility] [address] [place], [place] [address] Isael Gerri VITAMIN D 25 OHon 05-28-2020 VIT D 25-OH 79.9 ng/mL Normal [facility] Comment on above: Performed By: #### C BC #### [facility] [address] [place] [address] Isael Gerri VIT D RANGES SEE BELOW Normal [facility] Comment on above: Result Comment: <20 ng/mL Vit D deficient 20 - <30 ng/mL Vit D insufficient 30 - 100 ng/mL Vit D sufficient >100 ng/mL Potential Toxicity Performed By: #### C BC #### [facility] [address] [place], [place] [address] Isael Talley VITDH PLEASE NOTE: NORMAL RANGE CHANGE 03-08-2013, TESTING PERFORMED AT [facility]. Normal [facility] Comment on above: Performed By: #### C BC #### [facility] [address] [place] [address] Isael Gerri PTH INTACTon 04-30-2020 PTH, Intact 321 pg/mL Critically high - [facility] Comment on above: Performed By: #### L ACT #### [facility] [address] [place] [address] Dr. Venkat Rivas CBC AUTO DIFFon 04-29-2020 BASO # 0.1 103/ul Normal 0.0-0.1 [facility] Comment on above: Performed By: #### H GBHCT #### [facility] [address] [place], [place] [address] Isael Gerri Basophils/100 WBC (Bld) 0.7 % Normal 0.2-2.0 [facility] Comment on above: Performed By: #### H GBHCT #### [facility] [address] [place] [address] Isaelazra Caalen EO # 0.1 103/ul Normal 0.0-0.7 [facility] Comment on above: Performed By: #### H GBHCT #### [facility] [address] [place] [address] Isael Gerri Eosinophils/100 WBC (Bld) 1.4 % Normal 0.9-7.0 [facility] Comment on above: Performed By: #### H GBHCT #### [facility] [address] [place], [place] [address] Isael Gerri Erythrocyte distribution width (RBC) [Ratio] 13.4 % Normal 11.0-15.0 [facility] Comment on above: Performed By: #### H GBHCT #### [facility] [address] [address] Isael Talley Hematocrit (Bld) [Volume fraction] 35.0 % Critically low 36.0-48.0 [facility] Comment on above: Performed By: #### H GBHCT #### [facility] [address] [place] [address] Isael Talley Hemoglobin (Bld) [Mass/Vol] 11.3 g/dL Critically low 12.0-16.0 [facility] Comment on above: Performed By: #### H GBHCT #### [facility] [address] [place] [address] Isael Talley IG # 0.01 10e3/ul Normal 0.00-0.03 [facility] Comment on above: Performed By: #### H GBHCT #### [facility] [address] [place] [address] Isael Talley IG % 0.1 % Normal 0.0-0.5 [facility] Comment on above: Performed By: #### H GBHCT #### [facility] [address] [place] [address] Isael Talley LYMPH # 2.2 103/ul Normal 1.2-3.8 [facility] Comment on above: Performed By: #### H GBHCT #### [facility] [address] [place] [address] Isael Gerri Lymphocytes/100 WBC (Bld) 25.8 % Normal 20.5-60.0 [facility] Comment on above: Performed By: #### H GBHCT #### [facility] [address] [place], [place] [address] Isael Talley MANUAL DIFF REQ NO Normal [facility] Comment on above: Performed By: #### H GBHCT #### [facility] [address] [place], [place] [address] Isael Talley MCH (RBC) [Entitic mass] 30.4 pg Normal 26.7-34.0 [facility] Comment on above: Performed By: #### H GBHCT #### [facility] [address] [id number] Isael Talley MCHC (RBC) [Mass/Vol] 32.3 g/dL Normal 29.9-35.2 [facility] Comment on above: Performed By: #### H GBHCT #### [facility] [address] [phone] Isael Talley MCV (RBC) [Entitic vol] 94.1 fL Normal 81.0-99.0 [facility] Comment on above: Performed By: #### H GBHCT #### [facility] [address] [place], [place] [address] Isael Talley MONO # 0.5 103/ul Normal 0.3-0.8 [facility] Comment on above: Performed By: #### H GBHCT #### [facility] [address] [place], [place] [address] Isael Talley Monocytes/100 WBC (Bld) 5.5 % Normal 1.7-12.0 [facility] Comment on above: Performed By: #### H GBHCT #### [facility] [address] [place] [address] Isael Talley NEUT # 5.8 103/ul Normal 1.4-6.5 [facility] Comment on above: Performed By: #### H GBHCT #### [facility] [address] [place], [place] [address] Isael Talley Neutrophils/100 WBC (Bld) 66.5 % Normal 43.0-75.0 [facility] Comment on above: Performed By: #### H GBHCT #### [facility] [address] [place], [place] [address] Isael Talley Platelet mean volume (Bld) [Entitic vol] 9.8 fL Normal 9.5-13.5 [facility] Comment on above: Performed By: #### H GBHCT #### [facility] [address] [place], [place] [address] Isael Gerri PLT 269 103/ul Normal 150-450 [facility] Comment on above: Performed By: #### H GBHCT #### [facility] [address], [place] [address] Isael Gerri RBC 3.72 106/ul Critically low 4.20-5.40 [facility] Comment on above: Performed By: #### H GBHCT #### [facility] [address], [place] [address] Isael Gerri WBC 8.7 103/ul Normal 4.0-11.0 [facility] Comment on above: Performed By: #### H GBHCT #### [facility] [address] [address] Isael Gerri FERRITINon 04-29-2020 Ferritin [Mass/Vol] 698.0 ng/mL Critically high 11.1-264.0 [facility] Comment on above: Performed By: #### L ACT #### [facility] [address] [address] [address] Venkat Rivas IRON AND TIBCon 04-29-2020 % SATURATION 40.7 % Normal [facility] Comment on above: Performed By: #### L ACT #### [facility] [address], [place] [address] Dr. Venkat Rivas Iron [Mass/Vol] 92.0 ug/dL Normal 37.0-170.0 [facility] Comment on above: Performed By: #### L ACT #### [facility] [address], [place] [address] Dr. Venkat Rivas TIBC DIRECT 226.0 ug/dL Critically low 261.0-497.0 [facility] Comment on above: Performed By: #### L ACT #### [facility] [address], [place] [address] Dr. eVnkat Rivas RENAL FUNCTION PANELon 04-29 Albumin [Mass/Vol] 3.9 g/dL Normal 3.5-5.0 [facility] Comment on above: Performed By: #### H GBHCT #### [facility] [address] [address] Isael Talley Calcium [Mass/Vol] 9.2 mg/dL Normal 8.4-10.2 [facility] Comment on above: Performed By: #### H GBHCT #### [facility] [address] [phone] Isael Gerri Chloride [Moles/Vol] 102 mmol/L Normal 98-107 [facility] Comment on above: Performed By: #### H GBHCT #### [facility] [address] [phone] Isael Gerri CO2 [Moles/Vol] 23.4 mmol/L Normal 22.0-30.0 [facility] Comment on above: Performed By: #### H GBHCT #### [facility] [address] [address] Isael Gerri Creatinine [Mass/Vol] 4.50 mg/dL Critically high 0.52-1.04 [facility] Comment on above: Performed By: #### H GBHCT #### [facility] [address] [address] Isael Gerri EGFR-AF MACANESE 11 mL/min/1.73m2 Critically low >=60 [facility] Comment on above: Performed By: #### H GBHCT #### [facility] [address] [place] [address] Isael Gerri EGFR-NON AF MACANESE 9 mL/min/1.73m2 Critically low >=60 [facility] Comment on above: Performed By: #### H GBHCT #### [facility] [address] [address] Isael Gerri Glucose [Mass/Vol] 152 mg/dL Critically high 74-106 [facility] Comment on above: Performed By: #### H GBHCT #### [facility] [address] [place], [place] [phone] Isael Gerri Phosphate [Mass/Vol] 4.8 mg/dL Critically high 2.5-4.5 [facility] Comment on above: Performed By: #### H GBHCT #### [facility] [address] [place] [address] Isael Gerri Potassium [Moles/Vol] 3.9 mmol/L Normal 3.4-5.0 [facility] Comment on above: Performed By: #### H GBHCT #### [facility] [address] [place] [address] Isael Talley Sodium [Moles/Vol] 139 mmol/L Normal 137-145 [facility] Comment on above: Performed By: #### H GBHCT #### [facility] [address] [place], [place] [id number] Isael Talley Urea nitrogen [Mass/Vol] 68.0 mg/dL Critically high 7.0-17.0 [facility] Comment on above: Performed By: #### H GBHCT #### [facility] [address] [place], [place] [id number] Isael Talley VITAMIN D 25 OHon 04-29-2020 VIT D 25-OH 77.2 ng/mL Normal [facility] Comment on above: Performed By: #### L ACT #### [facility] [address] [place] [address] Dr. Venkat Rivas VIT D RANGES SEE BELOW Normal [facility] Comment on above: Result Comment: <20 ng/mL Vit D deficient 20 - <30 ng/mL Vit D insufficient 30 - 100 ng/mL Vit D sufficient >100 ng/mL Potential Toxicity Performed By: #### L ACT #### [facility] [address] [place] [address] Dr. Venkat Rivas VITDH PLEASE NOTE: NORMAL RANGE CHANGE 03-08-2013, TESTING PERFORMED AT [facility]. Normal [facility] Comment on above: Performed By: #### L ACT #### [facility] [address] [place] [address] Dr. Venkat Rivas Vital Signs Date Time Vital Sign Value Performing Clinician Facility 11-17-2021 13:45-0400 Body height 147.32 cm Dany Rodriguez Other [facility] Other 11-17-2021 13:45-0400 Body mass index (BMI) [Ratio] 17.35 kg/m2 Dany Rodriguez Other [facility] Other 11-17-2021 13:45-0400 Body temperature 96.4 [degF] Dany Rodriguez Other [facility] Other 11-17-2021 13:45-0400 Body weight 37.65 kg Dany Rodriguez Other [facility] Other 11-17-2021 13:45-0400 Diastolic blood pressure 54 mm[Hg] Dany Rodriguez Other [facility] Other 11-17-2021 13:45-0400 SaO2% (BldA) [Mass fraction] 98 % Dany Rodriguez Other [facility] Other 11-17-2021 13:45-0400 Systolic blood pressure 156 mm[Hg] Dany Rodriguez Other [facility] Other Encounters Encounter Date Encounter Type Care Provider Facility Start: 07-08-2023 End: 07-08-2023 ambulatory Heriberto Gonzalez Facility:[facility] Start: 07-08-2023 End: 07-08-2023 ambulatory NON STAFF [facility] Work Phone: Start: 07-08-2023 End: 07-08-2023 Patient encounter procedure [facility] [address] Work Phone: Start: 06-26-2023 End: 06-26-2023 ambulatory NON STAFF Facility:[facility] Start: 06-26-2023 End: 06-26-2023 ambulatory NON STAFF [facility] Work Phone: Start: 06-26-2023 End: 06-26-2023 Patient encounter procedure [facility] [address] Work Phone: Start: 11-17-2021 End: 11-17-2021 ambulatory Dany Rodriguez Other [facility] Other Start: 11-17-2021 Office outpatient visit 15 minutes Dany Rodriguez [facility] Start: 04-06-2021 End: 04-06-2021 ambulatory EUGENIO FERMIN Facility:[facility] Start: 03-29-2021 End: 03-29-2021 ambulatory EUGENIO EMELY Facility:[facility] Start: 09-09-2020 End: 09-10-[address] NONE LISTED REQUEST Facility:[facility] Start: 08-12-2020 End: 08-12-2020 ambulatory MART NOHEMI Facility:[facility] Start: 08-11-2020 End: 08-12-[address] NONE LISTED REQUEST Facility:[facility] Start: 08-05-2020 ambulatory MART NOHEMI Facility:[facility] Start: 08-04-2020 End: 08-05-2020 ambulatory DAWSON HARVEY Facility:[facility] Start: 07-22-2020 End: 07-23-2020 ambulatory MART NOHEMI Facility:[facility] Start: 06-24-2020 End: 06-25-2020 ambulatory MART NOHEMI Facility:[facility] Start: 06-12-2020 End: 06-13-2020 ambulatory MART NOHEMI Facility:[facility] Start: 05-28-2020 End: 05-29-2020 ambulatory MART NOHEMI Facility:[facility] Start: 04-29-2020 End: 04-30-2020 ambulatory MART NOHEMI Facility:[facility] Plan of Treatment Date Care Activity Detail Author Start: 07-08-2023 [facility] Immunizations Immunization Date Immunization Notes Care Provider Fa cility 08-12-2020 COVID-19 mRNA-1273 (Moderna) [facility] Payers Date Payer Category Payer Medicare [id number] 2023 Unknown [id number] 1958 Medicare [id number] 1959 Self-pay 1936 Unknown [id number] 2.16.84 [id number] 1936 Unknown [id number] 2.16.84 0.1.646293.3.579.2.593 1936 Unknown [id number] 2.16.84 0.1.097127.3.579.2.593 1936 Unknown [id number] 2.16.84 0.1.977834.3.579.2.593 1936 Unknown [id number] 2.16.84 0.1.865133.3.579.2.593 1936 Unknown [id number] 2.16.84 0.1.980048.3.579.2.593 1936 Unknown [id number] 2.16.84 0.1.004625.3.579.2.593 1936 Unknown [id number] 2.16.84 0.1.803872.3.579.2.593 1936 Unknown [id number] 2.16.84 0.1.945127.3.579.2.593 1936 Unknown [id number] 2.16.84 0.1.884570.3.579.2.593 Unknown [id number] 2.16.84 0.1.892633.3.579.2.593 Unknown [id number] 2.16.84 0.1.214363.3.579.2.593 Unknown HCAP/HFA/FAP Active [id number] Unknown [id number] 2.16.8 40.1.798026.3.579.2.531 Unknown [id number] 2.16.8 40.1.364704.3.579.2.531 Social History Date Type Detail Facility Unknown if ever smoked [facility] Other Sex Assigned At Sex Assigned At Bir th [facility] Other Start: 06-26-2023 Tobacco smoking status NHIS Never smoked tobacco (finding) [facility] Start: 1935 Sex Assigned At Female F [facility] Medical Equipment Procedure Code Equipment Code Equipment Origin al Text Equipment Identifier Dates Fluoroscopic guidance for insertion of tunnelled dialysis catheter [id number] FDA Start: 08-12-2020 Fluoroscopic guidance for insertion of tunnelled dialysis catheter [id number] FDA Start: 08-12-2020 Evaluation note 11-17-2021 Note Date & Type Note Facility 11-17-2021 Evaluation note Encounter Date Diagnosis Assessment Notes November, End stage renal disease (ICD-10 - N18.6) November, 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 At this time she does not require any additional diagnostic or therapeutic intervention. We will continue to follow on an annual basis unless she has issues in the meantime. [facility] Other Evaluation note Note Date & Type Note Facility Evaluation note No assessment information availa [facility] Work Phone: History general Narrative - Reported Note Date & Type Note Facility History general Narrative - Reported Type Medical History HYPERTENSION Medical History SINUSITIS Medical History UNDERWEIGHT Medical History RETINITIS PIGMENTOSA Medical History ESRD Medical History pgeisert Surgical History C-SECTIONS X3 Surgical History LT ashutosh AVF placed 03/05/2020 Surgical History AVF revision 08/24 Surgical History HD CATHETER INSERTION 08/12/2020 Surgical History REVISION LEFT ARM AVF 09/04/2020 Hospitalization History C-SECTIONS X3 Hospitalization History pgeisert Hospitalization History pgeisert [facility] Other Summary Purpose Family History No Family History Records Found Relationship Condition Age at Onset Recorded Date/T stephani Not Specified Hypertension Unknown Cerebrovascular accident (CVA) Unknown sister Kidney disorder Unknown End stage renal failure on dialysis Unkno wn Advance Directives No Advanced Directives Records Found Advance Directive Response Recorded Date/ Time Advance Directives No June 3:16pm Chief Complaint and Reason for Visit Chief Complaint needlestick source Additional Source Comments INFORMATION SOURCE (unrecogn ized section and content) DATE CREATED AUTHOR 04/12/2021 [facility] DATE CREATED AUTHOR AUTHOR'S ZAIRA GLORIA 07/14/2023 [facility] REASON FOR VISIT (unrecogniz ed section and content) VASC 1 YR FOLLOW UP, She com es for fistula check Care Teams (unrecognized sec tion and content) Team Status: Active Member Role Status Dates NON STAFF Primary Care Provider Active Team Status: Inactive Member Role Status Dates NON STAFF Primary Care Provider Active Heriberto Gonzalez , [facility] Attending Provider Active Team Status: Inactive Member Role Status Dates Heriberto Gonzalez , DO [facility] Attending Provider Active Goals (unrecognized section and content) Goals may be documented in a n alternate section FOR RECORDS PERTAINING TO PATIENTS WHO ARE OR HAVE BEEN ENROLLED IN A CHEMICAL DEPENDENCY/SUBSTANCEABUSE PROGRAM, SOME INFORMATION MAY BE OMITTED. This clinical summary was aggregated from multiple sources. Caution should be exercised in using it in the provision of clinical care. This summary normalizes information from multiple sources, and as a consequence, information in this document may materially change the coding, format and clinical context of patient data. In addition, data may be omitted in some cases. CLINICAL DECISIONS SHOULD BE BASED ON THE PRIMARY CLINICAL RECORDS. [employer] provides no warranty or guarantee of the accuracy or completeness of information in this document.
[2023-08-01 08:28] LABS: Potassium 4.4 mmol/L (3.5-5.1)
== END 2023-08-01 08:07 | disposition home or self-care (01) ==
LOC: LAB 08:06
PROVIDERS: Visit Provider Internal Medicine Nephrology
DX: E87.5 Hyperkalemia (principal)
CPT/HCPCS: 36415; 84132

== ENCOUNTER 2023-10-01 19:52 | Emergency (ER) | payer MEDICARE, SELFPAY ==
[2023-10-01 19:59] VITALS: BP 191/79; PULSE 66; TEMP 37.1; O2SAT 98; BMI 15.6
--- OUTSIDE RECORDS SUMMARY | 2023-10-01 19:59 | XMS_ITS | CCD ---
Author Organization [facility] Care Team Providers Care Supervisor Fertilizer Name Role Phone NOHEMI, MART Attending Unavailable [...] Unavailable MISC, DR HOWARD Primary Care Unavailable RITIKA, DR RANDALL Salas Consulting Unavailable YESSY CAMPBELL Consulting Unavailable EMELY, EUGENIO Consulting Unavailable EMELY, EUGENIO Consulting Unavailable EMELY, EUGENIO Attending Unavailable EMELY, EUGENIO Admitting Unavailable MISC, DR HOWARD Primary Care Unavailable To, Raul Consulting Unavailable REQUEST, NONE LISTED Admitting Unavaila ble REQUEST, NONE LISTED Attending Unavaila ble MISC, DR HOWARD Primary Care Unavailable RAMEZ RAHMAN Consulting Unavailable REQUEST, NONE LISTED Consulting Unavaila ble REQUEST, DR NONE LISTED Attending Unavaila ble MISC, DR HOWARD Primary Care Unavailable REQUEST, NONE LISTED Admitting Unavaila ble NOHEMI, MART Consulting Unavailable NOHEMI, MART Attending Unavailable NOHEMI, MART Admitting Unavailable MISC, DR HOWARD Primary Care Unavailable Dany Rodriguez Unavailable NON STAFF Primary Care Provider UnavailDO Heriberto Brown Attending Provider [phone] Heriberto Castellanos Attending Unavailable Heriberto Castellanos Admitting Unavailable NON STAFF Primary Care Unavailable Heriberto Castellanos Admitting Unavailable Heriberto Castellanos Attending Unavailable Medications Current Medications Medication Drug [...] daily April 05, 2021 11:00pm epoetin santiago 72869 unt/ml injectable solution (1 source) Erythropoiesis-stimul ating Agent Procrit 44427 UNIT/ML as directed Injection every 4 weeks [...] 12:00am Start: 07-02-2020 take 2 tablets by [facility] every twelve hours hydrALAZINE HCl 25 MG [...] D2) 1,250 mcg (50,000 unit) capsule Discontinued 61594 UNIT PO every week March 04, 2020 [...] 12, 2020 12:47pm take 2 tablets by ma ut every eight hours Sodium Bicarbonate 650 MG [...] 1 Episodic Other aftercare (1 source) Other manager intermediate (current) drug therapy; Translations: [OTH CORRECTION CURRENT DRUG THERAPY] Onset: 1 Episodic Other [...] FOR OTH VIRAL DZ] Onset: 08-04-2020 Episodic Residual codes; unclassified (1 source) Contact with and (suspected) exposure to potentially hazardous body fluids; Translations: [Contact with and (suspected) exposure to potentially hazardous body fluids] Onset: 06-26-2023 Episodic Results Test Name Value Interpretation Reference Range Facil ity HIV Screen ([facility])on HIV Screen ([facility]) Non-Reactive Normal Nonreactive [facility] Comment on above: Order Comment: Which is this, the Source or the Person with the Exposure?: SOURCE Source Medical Record: [id number] Exposed Result Comment: PERF ORMED BY: [facility] [place] [address] PATHOLOGIST MACHINE STONE POLISHER APPRENTICE ALISA WEINER M.D. Performed By: #### H BSAG, HBSAB, HCV RX PCR #### [facility] , #### HIV12 #### [address] HIV Screen ChemBioOrdered By : Heriberto Gonzalez on 07-08-2023 HIV 1+2 IgG IA.rapid Ql (Bld) Non-Reactive Nonreactive [facility] Hep C Ab wRfx to Qnt PCRon 0 07-08-2023 Hepatitis C Virus Antibody Non-Reactive Normal Non Reactive [facility] Comment on above: Order Comment: Which is this, the Source or the Person with the Exposure?: SOURCE Source Medical Record: [id number] Exposed Performed By: #### H BSAG, HBSAB, HCV RX PCR #### [facility] , #### HIV12 #### [facility] [address] [place] [address] Interpretation Hepatitis C Normal . [facility] Comment on above: Order Comment: Which is this, the Source or the Person with the Exposure?: SOURCE Source Medical Record: [id number] Exposed Result Comment: Not infected with HCV unless early or acute infection is suspected (which may be delayed in an immunocompromised individual), or other evidence exists to indicate HCV infection. Performed By: #### H BSAG, HBSAB, HCV RX PCR #### [facility] , #### HIV12 #### [facility] [address] [place] [address] Hepatitis B Surface Antibody on 07-08-2023 Hepatitis B Surface Antibody Non-Reactive Normal . [facility] Comment on above: Order Comment: Which is this, the Source or the Person with the Exposure?: SOURCE Source Medical Record: [id number] Exposed Result Comment: Non Reactive: Inconsistent with immunity, less than 10 mIU/mL Reactive: Consistent with immunity, greater than 9.9 mIU/mL Verified by repeat analysis Performed at: [address] [id number] Carriage Feeder: Jermain Perrin PhD, Phone: [phone] Performed By: #### H BSAG, HBSAB, HCV RX PCR #### [facility] , #### HIV12 #### [address] Hepatitis B Surface Antigeno n 07-08-2023 HBsAg Screen Negative Normal Negative [facility] Comment on above: Order Comment: Which is this, the Source or the Person with the Exposure?: SOURCE Source Medical Record: [id number] Exposed Result Comment: Perf ormed at: - [facility] [address] [id number] Carriage Feeder: Jermain Perrin PhD, Phone: [phone] PERFORMED BY: [place] [address] PATHOLOGIST MACHINE STONE POLISHER APPRENTICE ALISA WEINER M.D. Performed By: #### H BSAG, HBSAB, HCV RX PCR #### [facility] , #### HIV12 #### [address] BNPon 04-06-2021 Natriuretic peptide B (Bld) [Mass/Vol] 4012.0 pg/mL Critically high <=1,800.0 [facility] Comment on above: Performed By: #### C VDTBH CVDAGS #### [facility] [address] [place] [address] Dr. Venkat Rivas CBC AUTO DIFFon 04-06-2021 BASO # 0.1 103/ul Normal 0.0-0.1 [facility] Comment on above: Performed By: #### C VDTBH CVDAGS #### [facility] [address] [place] [address] Dr. Venkat Rivas Basophils/100 WBC (Bld) 0.8 % Normal 0.2-2.0 [facility] Comment on above: Performed By: #### C VDTBH CVDAGS #### [facility] [address] [place] [address] Dr. Venkat Rivas EO # 0.1 103/ul Normal 0.0-0.7 [facility] Comment on above: Performed By: #### C VDTBH, CVDAGS #### [facility] [address] [place] [address] Dr. Venkat Rivas Eosinophils/100 WBC (Bld) 0.9 % Normal 0.9-7.0 [facility] Comment on above: Performed By: #### C VDTBH, CVDAGS #### [facility] [address] [place] [address] Dr. Venkat Rivas Erythrocyte distribution width (RBC) [Ratio] 13.7 % Normal 11.0-15.0 [facility] Comment on above: Performed By: #### C VDTBH, CVDAGS #### [facility] [address] [place] [address] Dr. Venkat Rivas Hematocrit (Bld) [Volume fraction] 31.1 % Critically low 36.0-48.0 [facility] Comment on above: Performed By: #### C VDTBH, CVDAGS #### [facility] [address] [place] [address] Dr. Venkat Rivas Hemoglobin (Bld) [Mass/Vol] 10.6 g/dL Critically low 12.0-16.0 [facility] Comment on above: Performed By: #### C VDTBH, CVDAGS #### [facility] [address] [place] [address] Dr. Venkat Rivas IG # 0.02 10e3/ul Normal 0.00-0.03 [facility] Comment on above: Performed By: #### C VDTBH, CVDAGS #### [facility] [address] [place] [address] Dr. Venkat Rivas IG % 0.3 % Normal 0.0-0.5 [facility] Comment on above: Performed By: #### C VDTBH, CVDAGS #### [facility] [address] [place] [address] Dr. Venkat Rivas LYMPH # 1.8 103/ul Normal 1.2-3.8 [facility] Comment on above: Performed By: #### C VDTBH, CVDAGS #### [facility] [address] [place] [address] Dr. Venkat Rivas Lymphocytes/100 WBC (Bld) 27.0 % Normal 20.5-60.0 [facility] Comment on above: Performed By: #### C VDTBH, CVDAGS #### [facility] [address] [place] [address] Dr. Venkat Rivas MANUAL DIFF REQ NO Normal [facility] Comment on above: Performed By: #### C VDTBH, CVDAGS #### [facility] [address] [place] [address] Dr. Venkat Rivas MCH (RBC) [Entitic mass] 29.2 pg Normal 26.7-34.0 [facility] Comment on above: Performed By: #### C VDTBH, CVDAGS #### [facility] [address] [place] [address] Dr. Venkat Rivas MCHC (RBC) [Mass/Vol] 34.1 g/dL Normal 29.9-35.2 [facility] Comment on above: Performed By: #### C VDTBH, CVDAGS #### [facility] [address] [place] [address] Dr. Venkat Rivas MCV (RBC) [Entitic vol] 85.7 fL Normal 81.0-99.0 [facility] Comment on above: Performed By: #### C VDTBH, CVDAGS #### [facility] [address] [place] [address] Dr. Venkat Rivas MONO # 0.5 103/ul Normal 0.3-0.8 [facility] Comment on above: Performed By: #### C VDTBH, CVDAGS #### [facility] [address] [place] [address] Dr. Venkat Rivas Monocytes/100 WBC (Bld) 7.2 % Normal 1.7-12.0 [facility] Comment on above: Performed By: #### C VDTBH, CVDAGS #### [facility] [address] [address] [address] Venkat Rivas NEUT # 4.3 103/ul Normal 1.4-6.5 [facility] Comment on above: Performed By: #### C VDTBH, CVDAGS #### [facility] [address] [address] [address] Venkat Rivas Neutrophils/100 WBC (Bld) 63.8 % Normal 43.0-75.0 [facility] Comment on above: Performed By: #### C VDTBH, CVDAGS #### [facility] [address] [address] [address] Venkat Rivas Platelet mean volume (Bld) [Entitic vol] 9.5 fL Normal 9.5-13.5 [facility] Comment on above: Performed By: #### C VDTBH, CVDAGS #### [facility] [address] [place] [address] Dr. Venkat Rivas PLT 263 103/ul Normal 150-450 [facility] Comment on above: Performed By: #### C VDTBH, CVDAGS #### [facility] [address] [address] [address] Venkat Rivas RBC 3.63 106/ul Critically low 4.20-5.40 [facility] Comment on above: Performed By: #### C VDTBH, CVDAGS #### [facility] [address] [address] [address] Venkat Rivas WBC 6.7 103/ul Normal 4.0-11.0 [facility] Comment on above: Performed By: #### C VDTBH, CVDAGS #### [facility] [address] [place] [address] ABD/PELVIS WO CONon [...] RANDALL YOST Date: 2021-04-06 14:19 Normal [facility]on SARS-CoV-2 (COVID-19) RNA HUGH+probe Ql (Unsp spec) Not detected Normal NOT DETECTED [facility] Comment on above: Result Comment: This test is not yet approved or cleared by the [place] FDA. When there are no FDA-approved or cleared tests available, and other criteria are met, FDA can make tests available under an emergency access mechanism called an Emergency Use Authorization (EUA). The EUA for this test is supported by the Carpet Cutter of Health and Human Service's (HHS's) declaration [...] Performed By: #### C VDTBH, CVDAGS #### [facility] [address] [place] [address] Dr. Venkat DOWNEY URINE PROFILEon 1 Bilirubin Ql (U) Negative Normal NEGATIVE [facility] Comment on above: Performed By: #### C BC #### [facility] [address] [place] [address] Isael Gerri Clarity (U) CLEAR Normal CLEAR [facility] Comment on above: Performed By: #### C BC #### [facility] [address] [place] [address] Isael Gerri Color (U) LT. YELLOW Normal YELLOW [facility] Comment on above: Performed By: #### C BC #### [facility] [address] [place] [address] Isael Gerri ERUAHD A micrscopic examination will be performed if indicated. Normal [facility] Comment on above: Performed By: #### C BC #### [facility] [address] [place] [address] Isael Gerri Glucose Ql (U) Negative Normal NEGATIVE [facility] Comment on above: Performed By: #### C BC #### [facility] [address] [place] [address] Isael Gerri Hemoglobin Ql (U) Negative Normal NEGATIVE [facility] Comment on above: Performed By: #### C BC #### [facility] [address] [place] [address] Isael Gerri Ketones Ql (U) Negative Normal NEGATIVE [facility] Comment on above: Performed By: #### C BC #### [facility] [address] [place] [address] Isael Gerri LEUKOCYTES Negative Normal NEGATIVE [facility] Comment on above: Performed By: #### C BC #### [facility] [address] [place] [address] Isael Gerri Nitrite Ql (U) Negative Normal NEGATIVE [facility] Comment on above: Performed By: #### C BC #### [facility] [address] [place] [address] Isaelazra Talley pH (U) 8.5 [pH] Normal 5-9 [facility] Comment on above: Performed By: #### C BC #### [facility] [address] [place] [address] Isaelazra Talley Protein (U) [Mass/Vol] 30 mg/dL Abnormal NEGATIVE/ TRACE [facility] Comment on above: Performed By: #### C BC #### [facility] [address] [place], [place] [id number] Isaelazra Talley SPEC GRAVITY 1.015 Normal 1.005-<=1.025 [facility] Comment on above: Performed By: #### C BC #### [facility] [address] [place] [address] Isael Talley UR MICRO IND INDICATED Normal [facility] Comment on above: Performed By: #### C BC #### [facility] [address] [place], [place] [id number] Isaelazra Talley Urobilinogen Qn (U) 0.2 {Miki'U}/dL Normal 0.2 - 1. 0 [facility] Comment on above: Performed By: #### C BC #### [facility] [address] [place], [place] [id number] Isael Talley LACTATE/LACTIC ACIDon 2020 Lactate [Moles/Vol] 1.2 mmol/L Normal 0.7-2.0 [facility] Comment on above: Performed By: #### C BC #### [facility] [address] [place], [place] [id number] Isael Talley PROF 14(COMP METB)on 021 Albumin [Mass/Vol] 4.0 g/dL Normal 3.5-5.0 [facility] Comment on above: Performed By: #### C VDTBH, CVDAGS #### [facility] [address] [place], [place] [id number] Dr. Venkat Rivas Albumin/Globulin [Mass ratio] 1.0 {ratio} Normal [facility] Comment on above: Performed By: #### C VDTBH, CVDAGS #### [facility] [address] [place] [address] Dr. Venkat Rivas ALP [Catalytic activity/Vol] 88 U/L Normal 38-126 [facility] Comment on above: Performed By: #### C VDTBH, CVDAGS #### [facility] [address] [place] [address] Dr. Venkat Rivas ALT [Catalytic activity/Vol] 24 U/L Normal 9-52 [facility] Comment on above: Performed By: #### C VDTBH CVDAGS #### [facility] [address] [place] [address] Dr. Venkat Rivas Anion gap [Moles/Vol] 12.5 mmol/L Normal [facility] Comment on above: Performed By: #### C VDTBH CVDAGS #### [facility] [address] [place] [address] Dr. Venkat Rivas AST [Catalytic activity/Vol] 33 U/L Normal 14-36 [facility] Comment on above: Performed By: #### C VDTBH CVDAGS #### [facility] [address] [place] [address] Dr. Venkat Rivas Bilirubin [Mass/Vol] 0.5 mg/dL Normal 0.2-1.3 [facility] Comment on above: Performed By: #### C VDTBH CVDAGS #### [facility] [address] [place] [address] Dr. Venkat Rivas Calcium [Mass/Vol] 9.2 mg/dL Normal 8.4-10.2 [facility] Comment on above: Performed By: #### C VDTBH, CVDAGS #### [facility] [address] [place] [address] Dr. Venkat Rivas Chloride [Moles/Vol] 93 mmol/L Critically low 98-107 [facility] Comment on above: Performed By: #### C VDTBH, CVDAGS #### [facility] [address] [address] [address] Venkat Rivas CO2 [Moles/Vol] 32.2 mmol/L Critically high 22.0-30.0 [facility] Comment on above: Performed By: #### C VDTBH, CVDAGS #### [facility] [address] [address] [address] Venkat Rivas Creatinine [Mass/Vol] 1.67 mg/dL Critically high 0.52-1.04 [facility] Comment on above: Performed By: #### C VDTBH, CVDAGS #### [facility] [address] [address] [address] Venkat Rivas EGFR-AF ZIMBABWEAN 35 mL/min/1.73m2 Critically low >=60 [facility] Comment on above: Performed By: #### C VDTBH, CVDAGS #### [facility] [address] [place] [address] Dr. Venkat Rivas EGFR-NON AF ZIMBABWEAN 29 mL/min/1.73m2 Critically low >=60 [facility] Comment on above: Performed By: #### C VDTBH, CVDAGS #### [facility] [address] [address] [address] Venkat Rivas Globulin (S) [Mass/Vol] 3.9 g/dL Normal [facility] Comment on above: Performed By: #### C VDTBH, CVDAGS #### [facility] [address] [address] [address] Venkat Rivas Glucose [Mass/Vol] 100 mg/dL Normal 74-106 [facility] Comment on above: Performed By: #### C VDTBH, CVDAGS #### [facility] [address] [address] [address] Venkat Rivas Potassium [Moles/Vol] 2.7 mmol/L Critically low 3.4-5.0 [facility] Comment on above: Performed By: #### C VDTBH, CVDAGS #### [facility] [address] [address] [address] Venkat Rivas Protein [Mass/Vol] 7.9 g/dL Normal 6.1-8.2 [facility] Comment on above: Performed By: #### C VDTBH, CVDAGS #### [facility] [address] [place] [address] Dr. Venkat Rivas Sodium [Moles/Vol] 136 mmol/L Critically low 137-145 [facility] Comment on above: Performed By: #### C VDTBH, CVDAGS #### [facility] [address] [place] [address] Dr. Venkat Rivas Urea nitrogen [Mass/Vol] 17.0 mg/dL Normal 7.0-17.0 [facility] Comment on above: Performed By: #### C VDTBH, CVDAGS #### [facility] [address] [place] [address] Dr. Venkat Rivas Urea nitrogen/Creatinine [Mass ratio] 10.2 mg/mg Normal [facility] Comment on above: Performed By: #### C VDTBH, CVDAGS #### [facility] [address] [place] [address] Dr. Venkat Rivas PROTIMEon 04-06-2021 INR Coag (PPP) [Relative time] {INR} Normal [facility] Comment on above: Performed By: #### H GBHCT #### [facility] [address] [place] [address] Isael Talley INR GUIDELINES SEE BELOW Normal [facility] Comment on above: Result Comment: SHEIAL RED INR: 2.0 - 3.0 CONDITIONS NOT LISTED BELOW 2.5 - 3.5 FOR PROSTHETIC HEART VALVE REPLACEMENT 2.5 - 3.5 RECURRENT THROMBOSIS Performed By: #### H GBHCT #### [facility] [address] [place] [address] Isael Talley PT Coag (PPP) [Time] 10.0 s Normal 9.0-11.6 [facility] Comment on above: Performed By: #### H GBHCT #### [facility] [address] [place] [address] Isael Talley PTTon 04-06-2021 aPTT Coag (Bld) [Time] 26.8 s Normal 22.3-36.2 [facility] Comment on above: Performed By: #### H GBHCT #### [facility] [address] [place], [place] [address] Isael Talley SYMPTOMATIC COVID-19 ANTIGEN on 04-06-2021 EUA Statement SEE BELOW Normal [facility] Comment on above: Result Comment: This [...] is revoked sooner. Performed By: #### C VDTBH, CVDAGS #### [facility] [address] [place], [place] [address] Dr. Venkat Rivas SARS-CoV-2 (COVID-19) RNA HUGH+probe Ql (Unsp spec) Negative Normal NEGATIVE [facility] Comment on above: Result Comment: CONF IRMATION BY PCR PENDING PER CDC GUIDELINES/ SYMPTOMATIC PATIENT. Performed By: #### C VDTBH, CVDAGS #### [facility] [address] [place], [place] [address] Dr. Venkat Rivas TROPONIN, HIGH SENSITIVITYon 04-06-2021 HSTROP 82.8 pg/mL Critically high 4.0-35.5 [facility] Comment on above: Result Comment: CUT- OFF POINTS HAVE BEEN ESTABLISHED BASED ON THE FOURTH UNIVERSAL DEFINITIONS OF MYOCARDIAL INFARCTION. THE UPPER REFERENCE LIMIT (URL) OF TROPONIN, DEFINED THE 99TH PERCENTILE OF cTnI DISTRIBUTION IN A REFERENCE POPULATION, HAS BEEN CONFIRMED THE DECISION THRESHOLD FOR ID DIAGNOSIS. Test Repeated. Critical Value Verified Performed By: #### C VDTBH, CVDAGS #### [facility] [address] [place] [address] Dr. Venkat Rivas HSTROP 82.6 pg/mL Critically high 4.0-35.5 [facility] Comment on above: Result Comment: CUT- OFF POINTS HAVE BEEN ESTABLISHED BASED ON THE FOURTH UNIVERSAL DEFINITIONS OF MYOCARDIAL INFARCTION. THE UPPER REFERENCE LIMIT (URL) OF TROPONIN, DEFINED THE 99TH PERCENTILE OF cTnI DISTRIBUTION IN A REFERENCE POPULATION, HAS BEEN CONFIRMED THE DECISION THRESHOLD FOR ID DIAGNOSIS. Performed By: #### C VDTBH, CVDAGS #### [facility] [address] [place] [address] Dr. Venkat Rivas TSHon 04-06-2021 TSH 4.693 uIU/mL Critically high 0.470-4.680 [facility] Comment on above: Performed By: #### C VDTBH, CVDAGS #### [facility] [address] [place] [address] Dr. Venkat Rivas TSH RANGE SEE BELOW Normal [facility] Comment on above: Result Comment: <0.3 4 UIU/ml HYPERTHYROID 0.34-5.60 UIU/ml EUTHYROID >5.60 UIU/ml HYPOTHYROID Performed By: #### C NATHANTBSofi, CVDAGS #### [facility] [address] [place] [address] Dr. Venkat Rivas URINE MICROSCOPIC ONLYon BACTERIA NONE SEEN Normal NONE SEEN [facility] Comment on above: Performed By: #### H GBHCT #### [facility] [address] [place] [address] Isael Gerri Bacteria identified Cx Nom (U) NOT INDICATED Normal [facility] Comment on above: Performed By: #### H GBHCT #### [facility] [address] [place] [address] Isael Gerri CAST NONE SEEN Normal NONE SEEN [facility] Comment on above: Performed By: #### H GBHCT #### [facility] [address] [place] [address] Isael Gerri Crystals LM Nom (Urine sed) NONE SEEN Normal NONE SEEN [facility] Comment on above: Performed By: #### H GBHCT #### [facility] [address] [id number] Isael Gerri Epithelial cells LM Ql (Urine sed) RARE Normal NONE SEEN /RARE [facility] Comment on above: Performed By: #### H GBHCT #### [facility] [address] [place] [address] Isael Gerri MUCOUS NONE SEEN Normal NONE SEEN [facility] Comment on above: Performed By: #### H GBHCT #### [facility] [address] [place] [address] Isael Gerri RBC 0-2 Normal 0-2 [facility] Comment on above: Performed By: #### H GBHCT #### [facility] [address] [place] [address] Isael Gerri WBC 0-2 Abnormal NONE SEEN [facility] Comment on above: Performed By: #### H GBHCT #### [facility] [address] [place], [place] [phone] Isael Gerri XR CHEST 1 Von 04-06-2021 [...] YESSY CAMPBELL Date: 2021-04-06 12:24 Normal [facility] BNPon 03-29-2021 Natriuretic peptide B (Bld) [Mass/Vol] 4950.0 pg/mL Critically high <=1,800.0 [facility] Comment on above: Result Comment: crit ical value repeated and verified Performed By: #### L ACT #### [facility] [address] [place] [address] Dr. Venkat Rivas CBC AUTO DIFFon 03-29-2021 BASO # 0.1 103/ul Normal 0.0-0.1 [facility] Comment on above: Performed By: #### H GBHCT #### [facility] [address] [id number] Isael Gerri Basophils/100 WBC (Bld) 0.9 % Normal 0.2-2.0 [facility] Comment on above: Performed By: #### H GBHCT #### [facility] [address] [id number] Isael Gerri EO # 0.1 103/ul Normal 0.0-0.7 [facility] Comment on above: Performed By: #### H GBHCT #### [facility] [address] [place], [place] [id number] Isael Gerri Eosinophils/100 WBC (Bld) 1.2 % Normal 0.9-7.0 [facility] Comment on above: Performed By: #### H GBHCT #### [facility] [address] [place] [address] Isael Gerri Erythrocyte distribution width (RBC) [Ratio] 13.3 % Normal 11.0-15.0 [facility] Comment on above: Performed By: #### H GBHCT #### [facility] [address] [place] [address] Isael Gerri Hematocrit (Bld) [Volume fraction] 34.6 % Critically low 36.0-48.0 [facility] Comment on above: Performed By: #### H GBHCT #### [facility] [address] [place] [address] Isael Gerri Hemoglobin (Bld) [Mass/Vol] 11.6 g/dL Critically low 12.0-16.0 [facility] Comment on above: Performed By: #### H GBHCT #### [facility] [address] [place] [address] Isael Gerri IG # 0.02 10e3/ul Normal 0.00-0.03 [facility] Comment on above: Performed By: #### H GBHCT #### [facility] [address] [place] [address] Isael Gerri IG % 0.3 % Normal 0.0-0.5 [facility] Comment on above: Performed By: #### H GBHCT #### [facility] [address] [id number] Isael Gerri LYMPH # 2.5 103/ul Normal 1.2-3.8 [facility] Comment on above: Performed By: #### H GBHCT #### [facility] [address] [id number] Isael Gerri Lymphocytes/100 WBC (Bld) 36.5 % Normal 20.5-60.0 [facility] Comment on above: Performed By: #### H GBHCT #### [facility] [address] [id number] Isael Talley MANUAL DIFF REQ NO Normal [facility] Comment on above: Performed By: #### H GBHCT #### [facility] [address] [place] [address] Isael Gerri MCH (RBC) [Entitic mass] 29.6 pg Normal 26.7-34.0 [facility] Comment on above: Performed By: #### H GBHCT #### [facility] [address] [place], [place] [id number] Isaelazra Talley MCHC (RBC) [Mass/Vol] 33.5 g/dL Normal 29.9-35.2 [facility] Comment on above: Performed By: #### H GBHCT #### [facility] [address] [place], [place] [id number] Isael Gerri MCV (RBC) [Entitic vol] 88.3 fL Normal 81.0-99.0 [facility] Comment on above: Performed By: #### H GBHCT #### [facility] [address] [id number] Isael Gerri MONO # 0.4 103/ul Normal 0.3-0.8 [facility] Comment on above: Performed By: #### H GBHCT #### [facility] [address] [id number] Isael Gerri Monocytes/100 WBC (Bld) 6.4 % Normal 1.7-12.0 [facility] Comment on above: Performed By: #### H GBHCT #### [facility] [address] [place], [place] [address] Isael Talley NEUT # 3.7 103/ul Normal 1.4-6.5 [facility] Comment on above: Performed By: #### H GBHCT #### [facility] [address] [place], [place] [address] Isael Talley Neutrophils/100 WBC (Bld) 54.7 % Normal 43.0-75.0 [facility] Comment on above: Performed By: #### H GBHCT #### [facility] [address] [place], [place] [address] Isael Talley Platelet mean volume (Bld) [Entitic vol] 9.5 fL Normal 9.5-13.5 [facility] Comment on above: Performed By: #### H GBHCT #### [facility] [address] [id number] Isaelazra Caalen PLT 273 103/ul Normal 150-450 [facility] Comment on above: Performed By: #### H GBHCT #### [facility] [address] [place], [place] [address] Isael Gerri RBC 3.92 106/ul Critically low 4.20-5.40 [facility] Comment on above: Performed By: #### H GBHCT #### [facility] [address] [place], [place] [address] Isael Caalen WBC 6.7 103/ul Normal 4.0-11.0 [facility] Comment on above: Performed By: #### H GBHCT #### [facility] [address] [place], [place] [address] Isael Talley CULTURE BLOODon 03-29-2021 Microscopic examination of blood, culture Culture Observations: NO GROWTH AT 5 DAYS. Normal [facility] Comment on above: Performed By: #### C VDTBH, CVDAGS #### [facility] [address] [place], [place] [address] Dr. Venkat Rivas Covid-19 PCR ([facility])on 03-05 SARS-CoV-2 (COVID-19) RNA HUGH+probe Ql (Unsp spec) Not detected Normal NOT DETECTED [facility] Comment on above: Result Comment: This test is not yet approved or cleared by the [place] FDA. When there are no FDA-approved or cleared tests available, and other criteria are met, FDA can make tests available under an emergency access mechanism called an Emergency Use Authorization (EUA). The EUA for this test is supported by the [employer] of Health and Human Service's (HHS's) declaration [...] SARS-CoV-2. Performed By: #### L ACT #### [facility] [address] [place] [address] Dr. Venkat Rivas ER URINE PROFILEon 1 Bilirubin Ql (U) Negative Normal NEGATIVE [facility] Comment on above: Performed By: #### C VDTBH, CVDAGS #### [facility] [address] [place] [address] Dr. Venkat Rivas Clarity (U) CLEAR Normal CLEAR [facility] Comment on above: Performed By: #### C VDTBH, CVDAGS #### [facility] [address] [place] [address] Dr. Venkat Rivas Color (U) LT. YELLOW Normal YELLOW [facility] Comment on above: Performed By: #### C VDTBH, CVDAGS #### [facility] [address] [place] [address] Dr. Venkat Rivas ERUAHD A micrscopic examination will be performed if indicated. Normal [facility] Comment on above: Performed By: #### C VDTBH, CVDAGS #### [facility] [address] [place] [address] Dr. Venkat Rivas Glucose Ql (U) Negative Normal NEGATIVE [facility] Comment on above: Performed By: #### C VDTBH, CVDAGS #### [facility] [address] [place] [address] Dr. Venkat Rivas Hemoglobin Ql (U) TRACE-INTACT Abnormal NEGATIVE [facility] Comment on above: Performed By: #### C VDTBH, CVDAGS #### [facility] [address] [place] [address] Dr. Venkat Rivas Ketones Ql (U) Negative Normal NEGATIVE [facility] Comment on above: Performed By: #### C VDTBH, CVDAGS #### [facility] [address] [place] [address] Dr. Venkat Rivas LEUKOCYTES Negative Normal NEGATIVE [facility] Comment on above: Performed By: #### C VDTBH, CVDAGS #### [facility] [address] [place] [address] Dr. Venkat Rivas Nitrite Ql (U) Negative Normal NEGATIVE [facility] Comment on above: Performed By: #### C VDTBH, CVDAGS #### [facility] [address] [place] [address] Dr. Venkat Rivas pH (U) 8.5 [pH] Normal 5-9 [facility] Comment on above: Performed By: #### C VDTBH, CVDAGS #### [facility] [address] [place] [address] Dr. Venkat Rivas Protein (U) [Mass/Vol] 100 mg/dL Abnormal NEGATIVE/ TRACE [facility] Comment on above: Performed By: #### C VDTBH, CVDAGS #### [facility] [address] [place] [address] Dr. Venkat Rivas SPEC GRAVITY 1.010 Normal 1.005-<=1.025 [facility] Comment on above: Performed By: #### C VDTBH, CVDAGS #### [facility] [address] [place] [address] Dr. Venkat Rivas UR MICRO IND INDICATED Normal [facility] Comment on above: Performed By: #### C VDTBH, CVDAGS #### [facility] [address] [place] [address] Dr. Venkat Rivas Urobilinogen Qn (U) 0.2 {Miki'U}/dL Normal 0.2 - 1. 0 [facility] Comment on above: Performed By: #### C VDTBH, CVDAGS #### [facility] [address] [address] [address] Venkat Rivas LACTATE/LACTIC ACIDon 2020 Lactate [Moles/Vol] 1.7 mmol/L Normal 0.7-2.0 [facility] Comment on above: Performed By: #### L ACT #### [facility] [address] [place] [address] Dr. Venkat Rivas PROF 14(COMP METB)on 021 Albumin [Mass/Vol] 3.9 g/dL Normal 3.5-5.0 [facility] Comment on above: Performed By: #### C VDTBH, CVDAGS #### [facility] [address] [place] [address] Dr. Venkat Rivas Albumin/Globulin [Mass ratio] 1.0 {ratio} Normal [facility] Comment on above: Performed By: #### C VDTBH, CVDAGS #### [facility] [address] [place] [address] Dr. Venkat Rivas ALP [Catalytic activity/Vol] 88 U/L Normal 38-126 [facility] Comment on above: Performed By: #### C VDTBH, CVDAGS #### [facility] [address] [address] [address] Venkat Rivas ALT [Catalytic activity/Vol] 19 U/L Normal 9-52 [facility] Comment on above: Performed By: #### C VDTBH, CVDAGS #### [facility] [address] [place] [address] Dr. Venkat Rivas Anion gap [Moles/Vol] 12.1 mmol/L Normal [facility] Comment on above: Performed By: #### C VDTBH, CVDAGS #### [facility] [address] [address] [address] Venkat Rivas AST [Catalytic activity/Vol] 28 U/L Normal 14-36 [facility] Comment on above: Performed By: #### C VDTBH, CVDAGS #### [facility] [address] [address] [address] Venkat Rivas Bilirubin [Mass/Vol] 0.6 mg/dL Normal 0.2-1.3 [facility] Comment on above: Performed By: #### C VDTBH, CVDAGS #### [facility] [address] [address] [address] Venkat Rivas Calcium [Mass/Vol] 9.8 mg/dL Normal 8.4-10.2 [facility] Comment on above: Performed By: #### C VDTBSofi CVDAGS #### [facility] [address] [address] [address] Venkat Rivas Chloride [Moles/Vol] 97 mmol/L Critically low 98-107 [facility] Comment on above: Performed By: #### C VDTBSofi CVDAGS #### [facility] [address] [address] [address] Venkat Rivas CO2 [Moles/Vol] 27.1 mmol/L Normal 22.0-30.0 [facility] Comment on above: Performed By: #### C VDTBSofi CVDAGS #### [facility] [address] [place] [address] Dr. Venkat Rivas Creatinine [Mass/Vol] 5.58 mg/dL Critically high 0.52-1.04 [facility] Comment on above: Result Comment: crit ical value repeated and verified Performed By: #### C VDTBSofi CVDAGS #### [facility] [address] [place] [address] Dr. Venkat Rivas EGFR-AF ZIMBABWEAN 9 mL/min/1.73m2 Critically low >=60 [facility] Comment on above: Performed By: #### C VDTBH CVDAGS #### [facility] [address] [address] [address] Venkat Rivas EGFR-NON AF ZIMBABWEAN 7 mL/min/1.73m2 Critically low >=60 [facility] Comment on above: Performed By: #### C VDTBH, CVDAGS #### [facility] [address] [address] [address] Venkat Rivas Globulin (S) [Mass/Vol] 4.1 g/dL Normal [facility] Comment on above: Performed By: #### C VDTBH, CVDAGS #### [facility] [address] [address] [address] Venkat Rivas Glucose [Mass/Vol] 100 mg/dL Normal 74-106 [facility] Comment on above: Performed By: #### C VDTBH, CVDAGS #### [facility] [address] [place] [address] Dr. Venkat Rivas Potassium [Moles/Vol] 3.2 mmol/L Critically low 3.4-5.0 [facility] Comment on above: Performed By: #### C VDTBH, CVDAGS #### [facility] [address] [address] [address] Venkat Rivas Protein [Mass/Vol] 8.0 g/dL Normal 6.1-8.2 [facility] Comment on above: Performed By: #### C VDTBH, CVDAGS #### [facility] [address] [address] [address] Venkat Rivas Sodium [Moles/Vol] 133 mmol/L Critically low 137-145 [facility] Comment on above: Performed By: #### C VDTBH, CVDAGS #### [facility] [address] [place] [address] Dr. Venkat Rivas Urea nitrogen [Mass/Vol] 36.0 mg/dL Critically high 7.0-17.0 [facility] Comment on above: Performed By: #### C VDTBH, CVDAGS #### [facility] [address] [place] [address] Dr. Venkat Rivas Urea nitrogen/Creatinine [Mass ratio] 6.4 mg/mg Normal [facility] Comment on above: Performed By: #### C ZEB CVDAGS #### [facility] [address] [place] [address] Dr. Venkat Rivas PROTIMEon 03-29-2021 INR Coag (PPP) [Relative time] 0.95 {INR} Normal [facility] Comment on above: Performed By: #### C ZEB, CVDAGS #### [facility] [address] [place] [address] Dr. Venkat Rivas INR GUIDELINES SEE BELOW Normal [facility] Comment on above: Result Comment: SHEILA RED INR: 2.0 - 3.0 CONDITIONS NOT LISTED BELOW 2.5 - 3.5 FOR PROSTHETIC HEART VALVE REPLACEMENT 2.5 - 3.5 RECURRENT THROMBOSIS Performed By: #### C KATHARINE CARRINGTONS #### [facility] [address] [place] [address] Dr. Venkat Rivas PT Coag (PPP) [Time] 10.3 s Normal 9.0-11.6 [facility] Comment on above: Performed By: #### C AMILCAR CARRINGTONAGS #### [facility] [address] [place] [address] Dr. Venkat Rivas PTTon 03-29-2021 aPTT Coag (Bld) [Time] 27.3 s Normal 22.3-36.2 [facility] Comment on above: Performed By: #### C AMILCAR CARRINGTONAGS #### [facility] [address] [place] [address] Dr. Venkat Rivas SYMPTOMATIC COVID-19 ANTIGEN on 03-29-2021 EUA Statement SEE BELOW Normal [facility] Comment on above: Result Comment: This [...] sooner. Performed By: #### L ACT #### [facility] [address] [place] [address] Dr. Venkat Rivas SARS-CoV-2 (COVID-19) RNA HUGH+probe Ql (Unsp spec) Negative Normal NEGATIVE [facility] Comment on above: Result Comment: CONF IRMATION BY PCR PENDING PER CDC GUIDELINES/ SYMPTOMATIC PATIENT. Performed By: #### L ACT #### [facility] [address] [place] [address] Dr. Venkat Rivas TROPONIN, HIGH SENSITIVITYon 03-29-2021 HSTROP 80.7 pg/mL Critically high 4.0-35.5 [facility] Comment on above: Result Comment: CUT- OFF POINTS HAVE BEEN ESTABLISHED BASED ON THE FOURTH UNIVERSAL DEFINITIONS OF MYOCARDIAL INFARCTION. THE UPPER REFERENCE LIMIT (URL) OF TROPONIN, DEFINED THE 99TH PERCENTILE OF cTnI DISTRIBUTION IN A REFERENCE POPULATION, HAS BEEN CONFIRMED THE DECISION THRESHOLD FOR ID DIAGNOSIS. criticlal value repeated and verified Performed By: #### C VDTB, CVDAGS #### [facility] [address] [place] [address] Dr. Venkat Rivas HSTROP 84.9 pg/mL Critically high 4.0-35.5 [facility] Comment on above: Result Comment: CUT- OFF POINTS HAVE BEEN ESTABLISHED BASED ON THE FOURTH UNIVERSAL DEFINITIONS OF MYOCARDIAL INFARCTION. THE UPPER REFERENCE LIMIT (URL) OF TROPONIN, DEFINED THE 99TH PERCENTILE OF cTnI DISTRIBUTION IN A REFERENCE POPULATION, HAS BEEN CONFIRMED THE DECISION THRESHOLD FOR ID DIAGNOSIS. critical value repeated and verified Performed By: #### C VDTBH, CVDAGS #### [facility] [address] [place] [address] Dr. Venkat Rivas TSHon 03-29-2021 TSH 5.079 uIU/mL Critically high 0.470-4.680 [facility] Comment on above: Performed By: #### C VDTBH, CVDAGS #### [facility] [address] [place] [address] Dr. Venkat Rivas TSH RANGE SEE BELOW Normal [facility] Comment on above: Result Comment: <0.3 4 UIU/ml HYPERTHYROID 0.34-5.60 UIU/ml EUTHYROID >5.60 UIU/ml HYPOTHYROID Performed By: #### C VDTBSofi, CVDAGS #### [facility] [address] [place] [address] Dr. Venkat Rivas URINE MICROSCOPIC ONLYon BACTERIA NONE SEEN Normal NONE SEEN [facility] Comment on above: Performed By: #### C VDTBSofi, CVDAGS #### [facility] [address] [place] [address] Dr. Venkat Rivas Bacteria identified Cx Nom (U) NOT INDICATED Normal [facility] Comment on above: Performed By: #### C VDTBSofi, CVDAGS #### [facility] [address] [place] [address] Dr. Venkat Rivas CAST NONE SEEN Normal NONE SEEN [facility] Comment on above: Performed By: #### C VDTBSofi, CVDAGS #### [facility] [address] [place] [address] Dr. Venkat Rivas Crystals LM Nom (Urine sed) NONE SEEN Normal NONE SEEN [facility] Comment on above: Performed By: #### C VDTBSofi, CVDAGS #### [facility] [address] [place] [address] Dr. Venkat Rivas Epithelial cells LM Ql (Urine sed) FEW Abnormal NONE SEEN /RARE [facility] Comment on above: Performed By: #### C VDTBH, CVDAGS #### [facility] [address] [place] [address] Dr. Venkat Rivas MUCOUS NONE SEEN Normal NONE SEEN [facility] Comment on above: Performed By: #### C VDTBSofi, CVDAGS #### [facility] [address] [place] [address] Dr. Venkat Rivas RBC 2-5 Abnormal 0-2 [facility] Comment on above: Performed By: #### C VDTBH, CVDAGS #### [facility] [address] [address] [address] Venkat Rivas WBC 2-5 Abnormal NONE SEEN [facility] Comment on above: Performed By: #### C VDTBH, CVDAGS #### [facility] [address] [id number] [address] Venkat Rivas XR CHEST 1 Von [...] RAUL TO Date: 2021-03-29 13:28 Normal [facility] POTASSIUMon 08-12-2020 Potassium [Moles/Vol] 3.8 mmol/L Normal 3.4-5.0 [facility] Comment on above: Performed By: #### H GBHCT #### [facility] [address] [place] [address] Isael Talley HEPATITIS PANEL, ACUTEon HBsAg Screen Negative Normal Negative [facility] Comment on above: Performed By: #### H GBHCT #### [facility] [address] [address] Isael Talley Hep A Ab, IgM Negative Normal Negative [facility] Comment on above: Performed By: #### H GBHCT #### [facility] [address] [address] Isael Talley Hep B Core Ab, IgM Negative Normal Negative [facility] Comment on above: Performed By: #### H GBHCT #### [facility] [address] [address] Isael Talley Hep C Virus Ab <0.1 Normal 0.0-0.9 [facility] Comment on above: Result Comment: Nega tive: < 0.8 Indeterminate: 0.8 - 0.9 Positive: > 0.9 . The CDC recommends that a positive HCV antibody result be followed up with a HCV Nucleic Acid Amplification test (745497). Performed By: #### H GBHCT #### [facility] [address] [place], [place] [id number] Isael Gerri PTH INTACTon 08-05-2020 PTH, Intact 266 pg/mL Critically high 15-65 [facility] Comment on above: Performed By: #### L ACT #### [facility] [address] [place], [place] [id number] Dr. Venkat Rivas CBC AUTO DIFFon 08-04-2020 BASO # 0.1 103/ul Normal 0.0-0.1 [facility] Comment on above: Performed By: #### C BC #### [facility] [address] [place] [address] Isael Gerri Basophils/100 WBC (Bld) 0.7 % Normal 0.2-2.0 [facility] Comment on above: Performed By: #### C BC #### [facility] [address] [place], [place] [id number] Isael Gerri EO # 0.1 103/ul Normal 0.0-0.7 [facility] Comment on above: Performed By: #### C BC #### [facility] [address] [place] [address] Isael Gerri Eosinophils/100 WBC (Bld) 0.6 % Critically low 0.9-7.0 [facility] Comment on above: Performed By: #### C BC #### [facility] [address] [place], [place] [id number] Isael Gerri Erythrocyte distribution width (RBC) [Ratio] 13.8 % Normal 11.0-15.0 [facility] Comment on above: Performed By: #### C BC #### [facility] [address] [place], [place] [id number] Isael Gerri Hematocrit (Bld) [Volume fraction] 32.3 % Critically low 36.0-48.0 [facility] Comment on above: Performed By: #### C BC #### [facility] [address] [address] Isael Gerri Hemoglobin (Bld) [Mass/Vol] 10.4 g/dL Critically low 12.0-16.0 [facility] Comment on above: Performed By: #### C BC #### [facility] [address] [address] Isael Gerri IG # 0.05 10e3/ul Critically high 0.00-0.03 [facility] Comment on above: Performed By: #### C BC #### [facility] [address] [address] Isael Gerri IG % 0.6 % Critically high 0.0-0.5 [facility] Comment on above: Performed By: #### C BC #### [facility] [address] [place] [address] Isael Gerri LYMPH # 1.2 103/ul Normal 1.2-3.8 [facility] Comment on above: Performed By: #### C BC #### [facility] [address] [place] [address] Isael Gerri Lymphocytes/100 WBC (Bld) 14.3 % Critically low 20.5-60.0 [facility] Comment on above: Performed By: #### C BC #### [facility] [address] [place] [address] Isael Talley MANUAL DIFF REQ NO Normal [facility] Comment on above: Performed By: #### C BC #### [facility] [address] [place] [address] Isael Gerri MCH (RBC) [Entitic mass] 31.0 pg Normal 26.7-34.0 [facility] Comment on above: Performed By: #### C BC #### [facility] [address] [place] [address] Isael Gerri MCHC (RBC) [Mass/Vol] 32.2 g/dL Normal 29.9-35.2 [facility] Comment on above: Performed By: #### C BC #### [facility] [address] [id number] Isael Talley MCV (RBC) [Entitic vol] 96.4 fL Normal 81.0-99.0 [facility] Comment on above: Performed By: #### C BC #### [facility] [address] [id number] Isael Talley MONO # 0.5 103/ul Normal 0.3-0.8 [facility] Comment on above: Performed By: #### C BC #### [facility] [address] [id number] Isael Talley Monocytes/100 WBC (Bld) 6.3 % Normal 1.7-12.0 [facility] Comment on above: Performed By: #### C BC #### [facility] [facility] [address] [place], [place] [id number] Isael Caalen NEUT # 6.7 103/ul Critically high 1.4-6.5 [facility] Comment on above: Performed By: #### C BC #### [facility] [address] [place], [place] [address] Isael Talley Neutrophils/100 WBC (Bld) 77.5 % Critically high 43.0-75.0 [facility] Comment on above: Performed By: #### C BC #### [facility] [address] [place], [place] [id number] Isael Talley Platelet mean volume (Bld) [Entitic vol] 9.2 fL Critically low 9.5-13.5 [facility] Comment on above: Performed By: #### C BC #### [facility] [address] [place], [place] [id number] Isael Gerri PLT 370 103/ul Normal 150-450 [facility] Comment on above: Performed By: #### C BC #### [facility] [address] [place], [place] [address] Iseal Gerri RBC 3.35 106/ul Critically low 4.20-5.40 [facility] Comment on above: Performed By: #### C BC #### [facility] [address] [place], [place] [id number] Isael Gerri WBC 8.6 103/ul Normal 4.0-11.0 [facility] Comment on above: Performed By: #### C BC #### [facility] [address] [place], [place] [id number] Isael Gerri MAGNESIUMon 08-04-2020 Magnesium [Mass/Vol] 2.2 mg/dL Normal 1.6-2.3 [facility] Comment on above: Performed By: #### C BC #### [facility] [address] [place], [place] [id number] Isael Gerri RENAL FUNCTION PANELon 08-04 Albumin [Mass/Vol] 4.0 g/dL Normal 3.5-5.0 [facility] Comment on above: Performed By: #### C BC #### [facility] [address] [place] [address] Isael Gerri Calcium [Mass/Vol] 9.9 mg/dL Normal 8.4-10.2 [facility] Comment on above: Performed By: #### C BC #### [facility] [address] [place] [address] Isael Gerri Chloride [Moles/Vol] 100 mmol/L Normal 98-107 [facility] Comment on above: Performed By: #### C BC #### [facility] [address] [place] [address] Isael Gerri CO2 [Moles/Vol] 24.4 mmol/L Normal 22.0-30.0 [facility] Comment on above: Performed By: #### C BC #### [facility] [address] [place] [address] Isael Gerri Creatinine [Mass/Vol] 4.75 mg/dL Critically high 0.52-1.04 [facility] Comment on above: Performed By: #### C BC #### [facility] [address] [place], [place] [address] Isael Gerri EGFR-AF ZIMBABWEAN 11 mL/min/1.73m2 Critically low >=60 [facility] Comment on above: Performed By: #### C BC #### [facility] [address] [place], [place] [address] Isael Gerri EGFR-NON AF ZIMBABWEAN 9 mL/min/1.73m2 Critically low >=60 [facility] Comment on above: Performed By: #### C BC #### [facility] [address] [id number] Isael Gerri Glucose [Mass/Vol] 129 mg/dL Critically high 74-106 [facility] Comment on above: Performed By: #### C BC #### [facility] [address] [id number] Isael Gerri Phosphate [Mass/Vol] 3.8 mg/dL Normal 2.5-4.5 [facility] Comment on above: Performed By: #### C BC #### [facility] [address] [place] [address] Isael Gerri Potassium [Moles/Vol] 3.4 mmol/L Normal 3.4-5.0 [facility] Comment on above: Performed By: #### C BC #### [facility] [address] [place] [address] Isael Gerri Sodium [Moles/Vol] 140 mmol/L Normal 137-145 [facility] Comment on above: Performed By: #### C BC #### [facility] [address] [place] [address] Isael Gerri Urea nitrogen [Mass/Vol] 48.0 mg/dL Critically high 7.0-17.0 [facility] Comment on above: Performed By: #### C BC #### [facility] [address] [place], [place] [id number] Isael Gerri URIC ACID SERUMon 08-04-2020 Urate [Mass/Vol] 7.9 mg/dL Critically high 2.5-6.2 [facility] Comment on above: Performed By: #### C BC #### [facility] [address] [place], [place] [id number] Isael Gerri VITAMIN D 25 OHon 08-04-2020 VIT D 25-OH 87.0 ng/mL Normal [facility] Comment on above: Performed By: #### L ACT #### [facility] [address] [place], [place] [id number] Dr. Venkat Rivas VIT D RANGES SEE BELOW Normal [facility] Comment on above: Result Comment: <20 ng/mL Vit D deficient 20 - <30 ng/mL Vit D insufficient 30 - 100 ng/mL Vit D sufficient >100 ng/mL Potential Toxicity Performed By: #### L ACT #### [facility] [address] [place] [address] Dr. Venkat Rivas PTH INTACTon 07-23-2020 PTH, Intact 394 pg/mL Critically high 15-65 [facility] Comment on above: Performed By: #### C VDTBH, CVDAGS #### [facility] [address] [place] [address] Dr. Venkat Rivas CBC AUTO DIFFon 07-22-2020 BASO # 0.1 103/ul Normal 0.0-0.1 [facility] Comment on above: Performed By: #### C BC #### [facility] [address] [place] [address] Isael Gerri Basophils/100 WBC (Bld) 0.8 % Normal 0.2-2.0 [facility] Comment on above: Performed By: #### C BC #### [facility] [address] [place] [address] Isael Gerri EO # 0.1 103/ul Normal 0.0-0.7 [facility] Comment on above: Performed By: #### C BC #### [facility] [address] [place] [address] Isael Gerri Eosinophils/100 WBC (Bld) 1.5 % Normal 0.9-7.0 [facility] Comment on above: Performed By: #### C BC #### [facility] [address] [place] [address] Isael Gerri Erythrocyte distribution width (RBC) [Ratio] 14.3 % Normal 11.0-15.0 [facility] Comment on above: Performed By: #### C BC #### [facility] [address] [place] [address] Isael Gerri Hematocrit (Bld) [Volume fraction] 31.3 % Critically low 36.0-48.0 [facility] Comment on above: Performed By: #### C BC #### [facility] [address] [place], [place] [address] Isael Gerri Hemoglobin (Bld) [Mass/Vol] 10.1 g/dL Critically low 12.0-16.0 [facility] Comment on above: Performed By: #### C BC #### [facility] [address] [place], [place] [address] Isael Gerri IG # 0.02 10e3/ul Normal 0.00-0.03 [facility] Comment on above: Performed By: #### C BC #### [facility] [address] [place] [address] Isael Gerri IG % 0.3 % Normal 0.0-0.5 [facility] Comment on above: Performed By: #### C BC #### [facility] [address] [place] [address] Isael Gerri LYMPH # 2.2 103/ul Normal 1.2-3.8 [facility] Comment on above: Performed By: #### C BC #### [facility] [address] [place] [address] Isael Talley Lymphocytes/100 WBC (Bld) 29.6 % Normal 20.5-60.0 [facility] Comment on above: Performed By: #### C BC #### [facility] [address] [place] [address] Isael Talley MANUAL DIFF REQ NO Normal [facility] Comment on above: Performed By: #### C BC #### [facility] [address] [place], [place] [id number] Isael Gerri MCH (RBC) [Entitic mass] 30.6 pg Normal 26.7-34.0 [facility] Comment on above: Performed By: #### C BC #### [facility] [address] [place] [address] Isaelazra Caalen MCHC (RBC) [Mass/Vol] 32.3 g/dL Normal 29.9-35.2 [facility] Comment on above: Performed By: #### C BC #### [facility] [address] [place], [place] [address] Isael Gerri MCV (RBC) [Entitic vol] 94.8 fL Normal 81.0-99.0 [facility] Comment on above: Performed By: #### C BC #### [facility] [address] [place], [place] [address] Isael Gerri MONO # 0.4 103/ul Normal 0.3-0.8 [facility] Comment on above: Performed By: #### C BC #### [facility] [address] [id number] Isael Gerri Monocytes/100 WBC (Bld) 5.3 % Normal 1.7-12.0 [facility] Comment on above: Performed By: #### C BC #### [facility] [address] [place], [place] [id number] Isael Gerri NEUT # 4.7 103/ul Normal 1.4-6.5 [facility] Comment on above: Performed By: #### C BC #### [facility] [address] [place], [place] [id number] Isael Gerri Neutrophils/100 WBC (Bld) 62.5 % Normal 43.0-75.0 [facility] Comment on above: Performed By: #### C BC #### [facility] [address] [place], [place] [address] Isael Gerri Platelet mean volume (Bld) [Entitic vol] 9.6 fL Normal 9.5-13.5 [facility] Comment on above: Performed By: #### C BC #### [facility] [address] [place], [place] [address] Isael Gerri PLT 331 103/ul Normal 150-450 [facility] Comment on above: Performed By: #### C BC #### [facility] [address] [place], [place] [id number] Isael Gerri RBC 3.30 106/ul Critically low 4.20-5.40 [facility] Comment on above: Performed By: #### C BC #### [facility] [address] [place], [place] [id number] Isael Gerri WBC 7.5 103/ul Normal 4.0-11.0 [facility] Comment on above: Performed By: #### C BC #### [facility] [address] [place] [address] Isael Talley FERRITINon 07-22-2020 Ferritin [Mass/Vol] 583.0 ng/mL Critically high 11.1-264.0 [facility] Comment on above: Performed By: #### F ETIBC FERR, VITAD #### [facility] [address] [place] [address] Isael Talley IRON AND TIBCon 07-22-2020 % SATURATION 42.1 % Normal [facility] Comment on above: Performed By: #### F ETIBC FERR, VITAD #### [facility] [address] [place] [address] Isael Talley Iron [Mass/Vol] 114.0 ug/dL Normal 37.0-170.0 [facility] Comment on above: Performed By: #### F ETIBC FERR, VITAD #### [facility] [address] [place] [address] Isael Talley TIBC DIRECT 271.0 ug/dL Normal 261.0-497.0 [facility] Comment on above: Performed By: #### F ETIBC FERR, VITAD #### [facility] [address] [place] [address] Isael Talley RENAL FUNCTION PANELon 07-22 Albumin [Mass/Vol] 4.0 g/dL Normal 3.5-5.0 [facility] Comment on above: Performed By: #### C VDTBH, CVDAGS #### [facility] [address] [place] [address] Dr. Venkat Rivas Calcium [Mass/Vol] 9.0 mg/dL Normal 8.4-10.2 [facility] Comment on above: Performed By: #### C VDTBH, CVDAGS #### [facility] [address] [place] [address] Dr. Venkat Rivas Chloride [Moles/Vol] 105 mmol/L Normal 98-107 [facility] Comment on above: Performed By: #### C VDTBSofi CVDAGS #### [facility] [address] [address] [address] Venkat Rivas CO2 [Moles/Vol] 22.1 mmol/L Normal 22.0-30.0 [facility] Comment on above: Performed By: #### C VDTBSofi CVDAGS #### [facility] [address] [place] [address] Dr. Venkat Rivas Creatinine [Mass/Vol] 4.64 mg/dL Critically high 0.52-1.04 [facility] Comment on above: Performed By: #### C NATHANTBSofi CVDAGS #### [facility] [address] [place] [address] Dr. Venkat Rivas EGFR-AF ZIMBABWEAN Normal >=60 [facility] Comment on above: Performed By: #### C ZEB CVDAGS #### [facility] [address] [place] [address] Dr. Venkat Rivas EGFR-NON AF ZIMBABWEAN 3 mL/min/1.73m2 Critically low >=60 [facility] Comment on above: Performed By: #### C ZEB CVDAGS #### [facility] [address] [place] [address] Dr. Venkat Rivas Glucose [Mass/Vol] 140 mg/dL Critically high 74-106 [facility] Comment on above: Performed By: #### C VDTBSofi CVDAGS #### [facility] [address] [place] [address] Dr. Venkat Rivas Phosphate [Mass/Vol] 6.1 mg/dL Critically high 2.5-4.5 [facility] Comment on above: Result Comment: test repeated critical value verified Performed By: #### C VDTBSofi CVDAGS #### [facility] [address] [place] [address] Dr. Venkat Rivas Potassium [Moles/Vol] 3.7 mmol/L Normal 3.4-5.0 [facility] Comment on above: Performed By: #### C VDTBSofi CVDAGS #### [facility] [address] [address] [address] Venkat Rivas Sodium [Moles/Vol] 143 mmol/L Normal 137-145 [facility] Comment on above: Performed By: #### C VDTBH, CVDAGS #### [facility] [address] [place] [address] Dr. Venkat Rivas Urea nitrogen [Mass/Vol] 64.0 mg/dL Critically high 7.0-17.0 [facility] Comment on above: Performed By: #### C VDTBH, CVDAGS #### [facility] [address] [place] [address] Dr. Venkat Rivas PTH INTACTon 06-25-2020 PTH, Intact 289 pg/mL Critically high 15-65 [facility] Comment on above: Performed By: #### H GBHCT #### [facility] [address] [place] [address] Isael Caalen FERRITINon 06-24-2020 Ferritin [Mass/Vol] 656.0 ng/mL Critically high 11.1-264.0 [facility] Comment on above: Performed By: #### F ETIBC, FERR, VITAD #### [facility] [address] [place] [address] Isael Caalen HEMOGLOBIN AND HEMATOCRITon 06-24-2020 Hematocrit (Bld) [Volume fraction] 32.2 % Critically low 36.0-48.0 [facility] Comment on above: Performed By: #### H GBHCT #### [facility] [address] [place] [address] Iasel Gerri Hemoglobin (Bld) [Mass/Vol] 10.4 g/dL Critically low 12.0-16.0 [facility] Comment on above: Performed By: #### H GBHCT #### [facility] [address] [place] [address] Isael Caalen IRON AND TIBCon 06-24-2020 % SATURATION 43.8 % Normal [facility] Comment on above: Performed By: #### F ETIBC, FERR, VITAD #### [facility] [address] [place] [address] Isael Gerri Iron [Mass/Vol] 117.0 ug/dL Normal 37.0-170.0 [facility] Comment on above: Performed By: #### F KASHIF CORADO VITJESUS #### [facility] [address] [place], [place] [id number] Isael Gerri TIBC DIRECT 267.0 ug/dL Normal 261.0-497.0 [facility] Comment on above: Performed By: #### F KASHIF CORADO VITJESUS #### [facility] [address] [place] [address] Isael Gerri RENAL FUNCTION PANELon 06-24 Albumin [Mass/Vol] 3.9 g/dL Normal 3.5-5.0 [facility] Comment on above: Performed By: #### R ENAL #### [facility] [address] [place] [address] Isael Gerri Calcium [Mass/Vol] 9.5 mg/dL Normal 8.4-10.2 [facility] Comment on above: Performed By: #### R ENAL #### [facility] [address] [place], [place] [address] Isael Gerri Chloride [Moles/Vol] 105 mmol/L Normal 98-107 [facility] Comment on above: Performed By: #### R ENAL #### [facility] [address] [place] [address] Isael Gerri CO2 [Moles/Vol] 24.3 mmol/L Normal 22.0-30.0 [facility] Comment on above: Performed By: #### R ENAL #### [facility] [address] [place], [place] [address] Isael Gerri Creatinine [Mass/Vol] 4.19 mg/dL Critically high 0.52-1.04 [facility] Comment on above: Performed By: #### R ENAL #### [facility] [address] [place], [place] [address] Isael Gerri EGFR-AF ZIMBABWEAN 12 mL/min/1.73m2 Critically low >=60 [facility] Comment on above: Performed By: #### R ENAL #### [facility] [address] [id number] Isael Gerri EGFR-NON AF ZIMBABWEAN 10 mL/min/1.73m2 Critically low >=60 [facility] Comment on above: Performed By: #### R ENAL #### [facility] [address] [id number] Isael Gerri Glucose [Mass/Vol] 111 mg/dL Critically high 74-106 [facility] Comment on above: Performed By: #### R ENAL #### [facility] [address] [address] Isael Gerri Phosphate [Mass/Vol] 5.0 mg/dL Critically high 2.5-4.5 [facility] Comment on above: Performed By: #### R ENAL #### [facility] [address] [address] Isael Gerri Potassium [Moles/Vol] 4.1 mmol/L Normal 3.4-5.0 [facility] Comment on above: Performed By: #### R ENAL #### [facility] [address] [address] Isael Gerri Sodium [Moles/Vol] 143 mmol/L Normal 137-145 [facility] Comment on above: Performed By: #### R ENAL #### [facility] [address] [address] Isael Gerri Urea nitrogen [Mass/Vol] 61.0 mg/dL Critically high 7.0-17.0 [facility] Comment on above: Performed By: #### R ENAL #### [facility] [address] [id number] Isael Gerri VITAMIN D 25 OHon 06-24-2020 VIT D 25-OH 80.5 ng/mL Normal [facility] Comment on above: Performed By: #### F ETIBC, FERR, VITAD #### [facility] [address] [place], [place] [address] Isael Gerri VIT D RANGES SEE BELOW Normal [facility] Comment on above: Result Comment: <20 ng/mL Vit D deficient 20 - <30 ng/mL Vit D insufficient 30 - 100 ng/mL Vit D sufficient >100 ng/mL Potential Toxicity Performed By: #### F ETIBC, FERR, VITAD #### [facility] [address] [place], [place] [id number] Isael Gerri RENAL FUNCTION PANELon 06-12 Albumin [Mass/Vol] 4.0 g/dL Normal 3.5-5.0 [facility] Comment on above: Performed By: #### C BC #### [facility] [address] [place] [address] Isael Gerri Calcium [Mass/Vol] 9.2 mg/dL Normal 8.4-10.2 [facility] Comment on above: Performed By: #### C BC #### [facility] [address] [place] [address] Isael Gerri Chloride [Moles/Vol] 99 mmol/L Normal 98-107 [facility] Comment on above: Performed By: #### C BC #### [facility] [address] [place] [address] Isael Gerri CO2 [Moles/Vol] 25.4 mmol/L Normal 22.0-30.0 [facility] Comment on above: Performed By: #### C BC #### [facility] [address] [place] [address] Isael Gerri Creatinine [Mass/Vol] 5.04 mg/dL Critically high 0.52-1.04 [facility] Comment on above: Result Comment: TEST REPEAT, CRITICAL VALUE VERIFIED Performed By: #### C BC #### [facility] [address] [place] [address] Isael Gerri EGFR-AF ZIMBABWEAN Normal >=60 [facility] Comment on above: Performed By: #### C BC #### [facility] [address] [place], [place] [address] Isael Gerri EGFR-NON AF ZIMBABWEAN Normal >=60 [facility] Comment on above: Performed By: #### C BC #### [facility] [address] [place] [address] Isael Gerri Glucose [Mass/Vol] 120 mg/dL Critically high 74-106 [facility] Comment on above: Performed By: #### C BC #### [facility] [address] [place], [place] [address] Isael Gerri Phosphate [Mass/Vol] 7.2 mg/dL Critically high 2.5-4.5 [facility] Comment on above: Result Comment: TEST REPEAT, CRITICAL VALUE VERIFIED Performed By: #### C BC #### [facility] [address] [place], [place] [id number] Isael Gerri Potassium [Moles/Vol] 3.0 mmol/L Critically low 3.4-5.0 [facility] Comment on above: Performed By: #### C BC #### [facility] [address] [place] [address] Isael Gerir Sodium [Moles/Vol] 140 mmol/L Normal 137-145 [facility] Comment on above: Performed By: #### C BC #### [facility] [address] [place] [address] Isael Gerri Urea nitrogen [Mass/Vol] 81.0 mg/dL Critically high 7.0-17.0 [facility] Comment on above: Result Comment: TEST REPEAT, CRITICAL VALUE VERIFIED Performed By: #### C BC #### [facility] [address] [place] [address] Isael Gerri PTH INTACTon 05-30-2020 PTH, Intact 311 pg/mL Critically high 15-65 [facility] Comment on above: Performed By: #### L ACT #### [facility] [address] [place], [place] [address] Dr. Venkat Rivas FERRITINon 05-28-2020 Ferritin [Mass/Vol] 695.0 ng/mL Critically high 11.1-264.0 [facility] Comment on above: Performed By: #### C BC #### [facility] [address] [place], [place] [id number] Isaelazra Talley HEMOGRAM AND PLATELon 2019 Hematocrit (Bld) [Volume fraction] 33.0 % Critically low 36.0-48.0 [facility] Comment on above: Performed By: #### C VDTBH, CVDAGS #### [facility] [address] [place] [address] Dr. Venkat Rivas Hemoglobin (Bld) [Mass/Vol] 10.7 g/dL Critically low 12.0-16.0 [facility] Comment on above: Performed By: #### C VDTBH, CVDAGS #### [facility] [address] [place] [address] Dr. Venkat Rivas MCH (RBC) [Entitic mass] 29.6 pg Normal 26.7-34.0 [facility] Comment on above: Performed By: #### C VDTBH CVDAGS #### [facility] [address] [place] [address] Dr. Venkat Rivas MCHC (RBC) [Mass/Vol] 32.4 g/dL Normal 29.9-35.2 [facility] Comment on above: Performed By: #### C VDTBSofi CVDAGS #### [facility] [address] [place] [address] Dr. Venkat Rivas MCV (RBC) [Entitic vol] 91.2 fL Normal 81.0-99.0 [facility] Comment on above: Performed By: #### C VDTBSofi CVDAGS #### [facility] [address] [place] [address] Dr. Venkat Rivas PLT 302 103/ul Normal 150-450 [facility] Comment on above: Performed By: #### C VDTBSofi CVDAGS #### [facility] [address] [place] [address] Dr. Venkat Rivas RBC 3.62 106/ul Critically low 4.20-5.40 [facility] Comment on above: Performed By: #### C VDTBH CVDAGS #### [facility] [address] [place] [address] Dr. Venkat Rivas WBC 7.8 103/ul Normal 4.0-11.0 [facility] Comment on above: Performed By: #### C VDTBH CVDAGS #### [facility] [address] [place] [address] Dr. Venkat Rivas IRON AND TIBCon 05-28-2020 % SATURATION 37.2 % Normal [facility] Comment on above: Performed By: #### C BC #### [facility] [address] [place], [place] [id number] Isael Gerri Iron [Mass/Vol] 102.0 ug/dL Normal 37.0-170.0 [facility] Comment on above: Performed By: #### C BC #### [facility] [address] [place] [address] Isael Gerri TIBC DIRECT 274.0 ug/dL Normal 261.0-497.0 [facility] Comment on above: Performed By: #### C BC #### [facility] [address] [place], [place] [id number] Isael Gerri LIVER PROFILEon 05-28-2020 Albumin [Mass/Vol] 3.9 g/dL Normal 3.5-5.0 [facility] Comment on above: Performed By: #### C BC #### [facility] [address] [place] [address] Isael Gerri Performed By: #### H GBHCT #### [facility] [address] [place], [place] [id number] Isael Gerri Albumin/Globulin [Mass ratio] 0.9 {ratio} Normal [facility] Comment on above: Performed By: #### C BC #### [facility] [address] [place], [place] [id number] Isael Gerri ALP [Catalytic activity/Vol] 104 U/L Normal 38-126 [facility] Comment on above: Performed By: #### C BC #### [facility] [address] [place] [address] Isael Gerri ALT [Catalytic activity/Vol] 22 U/L Normal 9-52 [facility] Comment on above: Performed By: #### C BC #### [facility] [address] [place], [place] [id number] Isael Gerri AST [Catalytic activity/Vol] 27 U/L Normal 14-36 [facility] Comment on above: Performed By: #### C BC #### [facility] [address] [place], [place] [address] Isael Gerri BILI, CONJUGATED 0.1 mg/dL Normal 0.0-0.3 [facility] Comment on above: Performed By: #### C BC #### [facility] [address] [place], [place] [address] Isael Gerri Bilirubin [Mass/Vol] 0.3 mg/dL Normal 0.2-1.3 [facility] Comment on above: Performed By: #### C BC #### [facility] [address] [place] [id number] Isael Gerri Globulin (S) [Mass/Vol] 4.5 g/dL Normal [facility] Comment on above: Performed By: #### C BC #### [facility] [address] [place] [address] Isael Gerri Protein [Mass/Vol] 8.4 g/dL Critically high 6.1-8.2 [facility] Comment on above: Performed By: #### C BC #### [facility] [address] [place] [address] Isael Gerri RENAL FUNCTION PANELon 05-28 Calcium [Mass/Vol] 9.4 mg/dL Normal 8.4-10.2 [facility] Comment on above: Performed By: #### H GBHCT #### [facility] [address] [place], [place] [phone] Isael Gerri Chloride [Moles/Vol] 102 mmol/L Normal 98-107 [facility] Comment on above: Performed By: #### H GBHCT #### [facility] [address] [place] [id number] Isael Gerri CO2 [Moles/Vol] 23.5 mmol/L Normal 22.0-30.0 [facility] Comment on above: Performed By: #### H GBHCT #### [facility] [address] [place] [id number] Isael Gerri Creatinine [Mass/Vol] 4.54 mg/dL Critically high 0.52-1.04 [facility] Comment on above: Performed By: #### H GBHCT #### [facility] [address] [place] [address] Isael Gerri EGFR-AF ZIMBABWEAN 11 mL/min/1.73m2 Critically low >=60 [facility] Comment on above: Performed By: #### H GBHCT #### [facility] [address] [address] Isael Gerri EGFR-NON AF ZIMBABWEAN 9 mL/min/1.73m2 Critically low >=60 [facility] Comment on above: Performed By: #### H GBHCT #### [facility] [address] [place] [address] Isael Gerri Glucose [Mass/Vol] 117 mg/dL Critically high 74-106 [facility] Comment on above: Performed By: #### H GBHCT #### [facility] [address] [address] Isael Gerri Phosphate [Mass/Vol] 5.5 mg/dL Critically high 2.5-4.5 [facility] Comment on above: Performed By: #### H GBHCT #### [facility] [address] [place] [address] Isael Gerri Potassium [Moles/Vol] 3.6 mmol/L Normal 3.4-5.0 [facility] Comment on above: Performed By: #### H GBHCT #### [facility] [address] [address] Isael Gerri Sodium [Moles/Vol] 139 mmol/L Normal 137-145 [facility] Comment on above: Performed By: #### H GBHCT #### [facility] [address] [place] [address] Isael Gerri Urea nitrogen [Mass/Vol] 70.0 mg/dL Critically high 7.0-17.0 [facility] Comment on above: Performed By: #### H GBHCT #### [facility] [address] [place] [id number] Isael Gerri VITAMIN D 25 OHon 05-28-2020 VIT D 25-OH 79.9 ng/mL Normal [facility] Comment on above: Performed By: #### C BC #### [facility] [address] [place] [address] Isael Gerri VIT D RANGES SEE BELOW Normal [facility] Comment on above: Result Comment: <20 ng/mL Vit D deficient 20 - <30 ng/mL Vit D insufficient 30 - 100 ng/mL Vit D sufficient >100 ng/mL Potential Toxicity Performed By: #### C BC #### [facility] [address] [place] [address] Isaelazra Talley VITDH PLEASE NOTE: NORMAL RANGE CHANGE 03-08-2013, TESTING PERFORMED AT [facility]. Normal [facility] Comment on above: Performed By: #### C BC #### [facility] [address] [place] [address] Isael Talley PTH INTACTon 04-30-2020 PTH, Intact 321 pg/mL Critically high 15-65 [facility] Comment on above: Performed By: #### L ACT #### [facility] [address] [place] [address] Dr. Venkat Rivas CBC AUTO DIFFon 04-29-2020 BASO # 0.1 103/ul Normal 0.0-0.1 [facility] Comment on above: Performed By: #### H GBHCT #### [facility] [address] [place] [address] Isael Talley Basophils/100 WBC (Bld) 0.7 % Normal 0.2-2.0 [facility] Comment on above: Performed By: #### H GBHCT #### [facility] [address] [place] [address] Isael Talley EO # 0.1 103/ul Normal 0.0-0.7 [facility] Comment on above: Performed By: #### H GBHCT #### [facility] [address] [place] [address] Isael Talley Eosinophils/100 WBC (Bld) 1.4 % Normal 0.9-7.0 [facility] Comment on above: Performed By: #### H GBHCT #### [facility] [address] [place], [place] [phone] Isael Talley Erythrocyte distribution width (RBC) [Ratio] 13.4 % Normal 11.0-15.0 [facility] Comment on above: Performed By: #### H GBHCT #### [facility] [address] [place] [address] Isael Talley Hematocrit (Bld) [Volume fraction] 35.0 % Critically low 36.0-48.0 [facility] Comment on above: Performed By: #### H GBHCT #### [facility] [address] [place] [address] Isael Talley Hemoglobin (Bld) [Mass/Vol] 11.3 g/dL Critically low 12.0-16.0 [facility] Comment on above: Performed By: #### H GBHCT #### [facility] [address] [place] [address] Isaelazra Talley IG # 0.01 10e3/ul Normal 0.00-0.03 [facility] Comment on above: Performed By: #### H GBHCT #### [facility] [address] [place] [address] Isael Talley IG % 0.1 % Normal 0.0-0.5 [facility] Comment on above: Performed By: #### H GBHCT #### [facility] [address] [place] [address] Isael Talley LYMPH # 2.2 103/ul Normal 1.2-3.8 [facility] Comment on above: Performed By: #### H GBHCT #### [facility] [address] [place] [address] Isael Talley Lymphocytes/100 WBC (Bld) 25.8 % Normal 20.5-60.0 [facility] Comment on above: Performed By: #### H GBHCT #### [facility] [address] [place] [address] Isael Talley MANUAL DIFF REQ NO Normal [facility] Comment on above: Performed By: #### H GBHCT #### [facility] [address] [place] [address] Isael Talley MCH (RBC) [Entitic mass] 30.4 pg Normal 26.7-34.0 [facility] Comment on above: Performed By: #### H GBHCT #### [facility] [address] [place], [place] [address] Isael Talley MCHC (RBC) [Mass/Vol] 32.3 g/dL Normal 29.9-35.2 [facility] Comment on above: Performed By: #### H GBHCT #### [facility] [address] [place] [address] Isael Talley MCV (RBC) [Entitic vol] 94.1 fL Normal 81.0-99.0 [facility] Comment on above: Performed By: #### H GBHCT #### [facility] [address] [place] [address] Isael Talley MONO # 0.5 103/ul Normal 0.3-0.8 [facility] Comment on above: Performed By: #### H GBHCT #### [facility] [address] [place] [address] Isael Talley Monocytes/100 WBC (Bld) 5.5 % Normal 1.7-12.0 [facility] Comment on above: Performed By: #### H GBHCT #### [facility] [address] [place] [address] Isael Talley NEUT # 5.8 103/ul Normal 1.4-6.5 [facility] Comment on above: Performed By: #### H GBHCT #### [facility] [address] [place] [address] Isael Talley Neutrophils/100 WBC (Bld) 66.5 % Normal 43.0-75.0 [facility] Comment on above: Performed By: #### H GBHCT #### [facility] [address] [place], [place] [address] Isael Talley Platelet mean volume (Bld) [Entitic vol] 9.8 fL Normal 9.5-13.5 [facility] Comment on above: Performed By: #### H GBHCT #### [facility] [address] [place] [address] Isael Talley PLT 269 103/ul Normal 150-450 [facility] Comment on above: Performed By: #### H GBHCT #### [facility] [address] [place] [address] Isael Talley RBC 3.72 106/ul Critically low 4.20-5.40 [facility] Comment on above: Performed By: #### H GBHCT #### [facility] [address] [place] [address] Isael Talley WBC 8.7 103/ul Normal 4.0-11.0 [facility] Comment on above: Performed By: #### H GBHCT #### [facility] [address] [place] [address] Isael Talley FERRITINon 04-29-2020 Ferritin [Mass/Vol] 698.0 ng/mL Critically high 11.1-264.0 [facility] Comment on above: Performed By: #### L ACT #### [facility] [address] [place] [address] Dr. Venkat Rivas IRON AND TIBCon 04-29-2020 % SATURATION 40.7 % Normal [facility] Comment on above: Performed By: #### L ACT #### [facility] [address] [place] [address] Dr. Venkat Rivas Iron [Mass/Vol] 92.0 ug/dL Normal 37.0-170.0 [facility] Comment on above: Performed By: #### L ACT #### [facility] [address] [place] [address] Dr. Venkat Rivas TIBC DIRECT 226.0 ug/dL Critically low 261.0-497.0 [facility] Comment on above: Performed By: #### L ACT #### [facility] [address] [place], [place] [address] Dr. Venkat Rivas RENAL FUNCTION PANELon 04-29 Albumin [Mass/Vol] 3.9 g/dL Normal 3.5-5.0 [facility] Comment on above: Performed By: #### H GBHCT #### [facility] [address] [place] [address] Isael Gerri Calcium [Mass/Vol] 9.2 mg/dL Normal 8.4-10.2 [facility] Comment on above: Performed By: #### H GBHCT #### [facility] [address] [place] [id number] Isael Gerri Chloride [Moles/Vol] 102 mmol/L Normal 98-107 [facility] Comment on above: Performed By: #### H GBHCT #### [facility] [address] [place] [address] Isael Gerri CO2 [Moles/Vol] 23.4 mmol/L Normal 22.0-30.0 [facility] Comment on above: Performed By: #### H GBHCT #### [facility] [address] [place] [address] Isael Gerri Creatinine [Mass/Vol] 4.50 mg/dL Critically high 0.52-1.04 [facility] Comment on above: Performed By: #### H GBHCT #### [facility] [address] [place] [address] Isael Gerri EGFR-AF ZIMBABWEAN 11 mL/min/1.73m2 Critically low >=60 [facility] Comment on above: Performed By: #### H GBHCT #### [facility] [address] [place] [address] Isael Gerri EGFR-NON AF ZIMBABWEAN 9 mL/min/1.73m2 Critically low >=60 [facility] Comment on above: Performed By: #### H GBHCT #### [facility] [address] [place] [address] Isael Gerri Glucose [Mass/Vol] 152 mg/dL Critically high 74-106 [facility] Comment on above: Performed By: #### H GBHCT #### [facility] [address] [place] [id number] Isael Gerri Phosphate [Mass/Vol] 4.8 mg/dL Critically high 2.5-4.5 [facility] Comment on above: Performed By: #### H GBHCT #### [facility] [address] [place] [id number] Isael Gerri Potassium [Moles/Vol] 3.9 mmol/L Normal 3.4-5.0 [facility] Comment on above: Performed By: #### H GBHCT #### [facility] [address] [place], [place] [address] Isael Gerri Sodium [Moles/Vol] 139 mmol/L Normal 137-145 [facility] Comment on above: Performed By: #### H GBHCT #### [facility] [address] [place] [id number] Isael Gerri Urea nitrogen [Mass/Vol] 68.0 mg/dL Critically high 7.0-17.0 [facility] Comment on above: Performed By: #### H GBHCT #### [facility] [address] [place], [place] [address] Isael Talley VITAMIN D 25 OHon 04-29-2020 VIT D 25-OH 77.2 ng/mL Normal [facility] Comment on above: Performed By: #### L ACT #### [facility] [address] [place] [address] Dr. Venkat Rivas VIT D RANGES SEE BELOW Normal [facility] Comment on above: Result Comment: <20 ng/mL Vit D deficient 20 - <30 ng/mL Vit D insufficient 30 - 100 ng/mL Vit D sufficient >100 ng/mL Potential Toxicity Performed By: #### L ACT #### [facility] [address] [place] [address] Dr. Venkat Rivas VITDH PLEASE NOTE: NORMAL RANGE CHANGE 03-08-2013, TESTING PERFORMED AT [facility]. Normal [facility] Comment on above: Performed By: #### L ACT #### [facility] [address] [place], [place] [address] Dr. Venkat Rivas Vital Signs Date Time Vital Sign Value Performing Clinician Facility 11-17-2021 13:45-0400 Body height 147.32 cm Dany Rodriguez Other [facility] Other 11-17-2021 13:45-0400 Body mass index (BMI) [Ratio] 17.35 kg/m2 Dany Rodriguez Other [facility] Other 11-17-2021 13:45-0400 Body temperature 96.4 [degF] Dany Rodriguez Other [facility] Other 11-17-2021 13:45-0400 Body weight 37.65 kg Dany Rodriguez Other [facility] Other 11-17-2021 13:45-0400 Diastolic blood pressure 54 mm[Hg] Dany Rodriguez Other [facility] Other 11-17-2021 13:45-0400 SaO2% (BldA) [Mass fraction] 98 % Dany Rodriguez Other [facility] Other 11-17-2021 13:45-0400 Systolic blood pressure 156 mm[Hg] Dany Rodriguez Other [facility] Other Encounters Encounter Date Encounter Type Care Provider Facility Start: 07-08-2023 End: 07-08-2023 ambulatory Heriberto Donald [facility] Facility:[facility] Start: 07-08-2023 End: 07-08-2023 ambulatory NON STAFF [facility] Work Phone: Start: 07-08-2023 End: 07-08-2023 Patient encounter procedure [facility] [address] Work Phone: Start: 06-26-2023 End: 06-26-2023 ambulatory NON STAFF Facility:[facility] Start: 06-26-2023 End: 06-26-2023 ambulatory NON STAFF [facility] Work Phone: Start: 06-26-2023 End: 06-26-2023 Patient encounter procedure [facility] [address] Work Phone: Start: 11-17-2021 End: 11-17-2021 ambulatory Dany Rodriguez Other [facility] Other Start: 11-17-2021 Office outpatient visit 15 minutes Dany Rodriguez [facility] Start: 04-06-2021 End: 04-06-2021 ambulatory EUGENIO FERMIN Facility:[facility] Start: 03-29-2021 End: 03-29-2021 ambulatory EUGENIO FERMIN Facility:[facility] Start: 09-09-2020 End: 09-10-[address] NONE LISTED REQUEST Facility:[facility] Start: 08-12-2020 End: 08-12-2020 ambulatory MART NOHEMI Facility:[facility] Start: 08-11-2020 End: 08-12-[address] NONE LISTED REQUEST Facility:[facility] Start: 08-05-2020 ambulatory MART NOHEMI Facility:[facility] Start: 08-04-2020 End: 08-05-2020 ambulatory DAWSON WES Facility:[facility] Start: 07-22-2020 End: 07-23-2020 ambulatory MART NOHEMI Facility:[facility] Start: 06-24-2020 End: 06-25-2020 ambulatory MART NOHEMI Facility:[facility] Start: 06-12-2020 End: 06-13-2020 ambulatory MART NOHEMI Facility:[facility] Start: 05-28-2020 End: 05-29-2020 ambulatory MART NOHEMI Facility:[facility] Start: 04-29-2020 End: 04-30-2020 ambulatory MART NOHEMI Facility:[facility] Plan of Treatment Date Care Activity Detail Author Start: 07-08-2023 [facility] Immunizations Immunization Date Immunization Notes Care Provider Fa cility 08-12-2020 COVID-19 [id number] ([facility]) [facility] Payers Date Payer Category Payer Medicare [id number] 1958 Medicare [id number] 1958 Self-pay 1935 Unknown [id number] 2.16.84 [id number] 1936 Unknown [id number] 2.16.84 [id number] 1936 Unknown [id number] 2.16.84 0.1.814032.3.579.2.593 1936 Unknown [id number] 2.16.84 0.1.123606.3.579.2.593 1936 Unknown [id number] 2.16.84 0.1.571253.3.579.2.593 1936 Unknown [id number] 2.16.84 0.1.109637.3.579.2.593 1936 Unknown [id number] 2.16.84 0.1.001257.3.579.2.593 1936 Unknown [id number] 2.16.84 0.1.629774.3.579.2.593 1936 Unknown [id number] 2.16.84 0.1.882184.3.579.2.593 1936 Unknown [id number] 2.16.84 0.1.196660.3.579.2.593 Unknown [id number] 2.16.84 0.1.051871.3.579.2.593 Unknown [id number] 2.16.84 0.1.136894.3.579.2.593 Unknown HCAP/HFA/FAP Active [id number] Unknown [facility] [id number] Unknown [id number] 2.16.8 [id number] Unknown [id number] .16.8 [id number] Social History Date Type Detail Facility Unknown if ever smoked [facility] Other Sex Assigned At Sex Assigned At Bir th [facility] Other Start: 06-26-2023 Tobacco smoking status NHIS Never smoked tobacco (finding) [facility] Start: 1935 Sex Assigned At Female F [facility] Medical Equipment Procedure Code Equipment Code Equipment Origin al Text Equipment Identifier Dates Fluoroscopic guidance for insertion of tunnelled dialysis catheter [id number] FDA Start: 08-12-2020 Fluoroscopic guidance for insertion of tunnelled dialysis catheter [id number] FDA Start: 08-12-2020 Evaluation note 11-17-2021 Note [...] unless she has issues in the meantime. [facility] Other Evaluation note Note Date & Type Note Facility Evaluation note No assessment information availa [facility] Work Phone: History general Narrative - Reported [...] X3 Hospitalization History pgeisert Hospitalization History pgeisert [facility] Other Summary Purpose Family History No Family [...] [facility] DATE CREATED AUTHOR AUTHOR'S ORGANIZ ATION 10/01/2023 [facility] REASON FOR VISIT (unrecogniz ed section and content) VASC 1 YR FOLLOW UP, She com es for fistula check Care Teams (unrecognized sec tion and content) Team Status: Active Member Role Status Dates NON STAFF Primary Care Provider Active Team Status: Inactive Member Role Status Dates NON STAFF Primary Care Provider Active Heriberto Gonzalez DO [facility] Attending Provider Active Team Status: Inactive Member Role Status Dates Heriberto Gonzalez , [facility] Attending Provider Active Goals (unrecognized section [...] BE BASED ON THE PRIMARY CLINICAL RECORDS. [email or web address] [facility]. provides no warranty or guarantee of the accuracy or completeness of information in this document.
--- NOTE | 2023-10-01 20:12 | XR_ITS ---
The [place] [address] Patient Name: ELIZABETH HAN MRN: [id number] date: 1935 Sex: F Assigned Patient Location: ER Current Patient Location: ER Accession/Order Number: [id number] Exam Date: 10/01/2023 20:20 Report Date: 10/01/2023 21:21 At the request of: CLEMENTINA ALFRED Procedure: XR hip RT min 2V EXAM: XR hip RT min 2V, XR femur RT 2V HISTORY: fall COMPARISON: None. TECHNIQUE: 2 views of the right hip and AP and lateral views of the right femur FINDINGS: Acute mildly displaced avulsion fracture of the greater trochanter of the right femur is seen. Joint alignment is normal. Joint spaces are preserved. Vascular calcification is seen. XR/XR hip RT min 2V IMPRESSION: Acute mildly displaced avulsion fracture of the greater trochanter of the right femur Electronically authenticated by: EVAN GARY Date: 10/01/2023 21:21
--- NOTE | 2023-10-01 20:13 | XR_ITS ---
The [address] [address] Patient Name: ELIZABETH HAN MRN: [id number] date: 1935 Sex: F Assigned Patient Location: ER Current Patient Location: ER Accession/Order Number: [id number] Exam Date: 10/01/2023 20:20 Report Date: 10/01/2023 21:23 At the request of: CLEMENTINA ALFRED Procedure: XR shoulder RT min 2V EXAM: XR shoulder RT min 2V HISTORY: fall COMPARISON: None. TECHNIQUE: 4 views of the right shoulder FINDINGS: Mild diffuse bony demineralization is seen. No acute fracture seen. Joint alignment is normal. Degenerative changes are seen about the right glenohumeral joint with joint space narrowing and subchondral sclerosis. High riding right humeral head is seen, is seen with rotatory cuff injury. Soft tissue prominence seen about the shoulder. XR/XR shoulder RT min 2V IMPRESSION: No acute fracture or malalignment. Mild diffuse bony demineralization. Degenerative changes seen at the right glenohumeral joint. Electronically authenticated by: EVAN GARY Date: 10/01/2023 21:23
--- NOTE | 2023-10-01 20:13 | XR_ITS ---
The [place] [address] Patient Name: ELIZABETH HAN MRN: [id number] date: 1935 Sex: F Assigned Patient Location: ER Current Patient Location: ER Accession/Order Number: [id number] Exam Date: 10/01/2023 20:20 Report Date: 10/01/2023 21:21 At the request of: CLEMENTINA ALFRED Procedure: XR femur RT 2V EXAM: XR hip RT min 2V, XR femur RT 2V HISTORY: fall COMPARISON: None. TECHNIQUE: 2 views of the right hip and AP and lateral views of the right femur FINDINGS: Acute mildly displaced avulsion fracture of the greater trochanter of the right femur is seen. Joint alignment is normal. Joint spaces are preserved. Vascular calcification is seen. XR/XR femur RT 2V IMPRESSION: Acute mildly displaced avulsion fracture of the greater trochanter of the right femur Electronically authenticated by: EVAN GARY Date: 10/01/2023 21:21
--- NOTE | 2023-10-01 20:14 | ED_ITS ---
HPI HPI - Extremity Injury (Lower) General Chief Complaint: Extremity Injury, Lower Stated Complaint: FALL Time Seen by Provider: 10/01/23 19:58 Source: patient Mode of arrival: Wheelchair History of Present Illness HPI Narrative: 88-year-old female presents for pain after a fall. Today she fell when she lost her balance and she points to the right anterior thigh to indicate the area of pain. She also complains of some mild pain in the right shoulder. She did not hit her head, no LOC. No injury to the left side. Most of the history is given by her daughter who accompanies her. Related Data Home Medications ?Medication ?Instructions ?Recorded ?Confirmed amlodipine 10 mg tablet 10 mg PO DAILY 06/06/23 06/06/23 furosemide 40 mg tablet 40 mg PO DAILY 06/06/23 06/06/23 hydralazine 50 mg tablet 50 mg PO Q8H 06/06/23 06/06/23 sevelamer carbonate 800 mg tablet 800 mg PO TID 06/06/23 06/06/23 vitamin B complex-vitamin C-folic 1 tab PO Q24H 06/06/23 06/06/23 acid 0.8 mg tablet (Cate-Antoinette) Previous Rx's ?Medication ?Instructions ?Recorded bisacodyl 5 mg tablet,delayed 5 mg PO DAILY PRN constipation #10 05/02/23 release (Dulcolax (bisacodyl)) tabs methocarbamol 500 mg tablet 500 mg PO Q8H PRN muscle spasm #15 06/06/23 tabs tramadol 50 mg tablet 50 mg PO Q4H PRN pain #12 tabs 06/06/23 Allergies Allergy/AdvReac Type Severity Reaction Status Date / Time No Known Drug Allergies Allergy Verified 06/06/23 13:29 Opioid HPI Opioid Management Most Recent Pain and Opioid Data: Last Pain Scale 3 10/01/23 23:46 Last ED Pain Assessment 10/01/23 23:46 Review of Systems ROS Narrative A ten point review of systems is negative except as noted above. PFSH PFSH Social History Smoking status: Never smoker Exam Narrative Exam Narrative: Nurses note and vital signs reviewed and patient is not hypoxic. General: The patient appears in no apparent distress. Patient is resting comfortably on cart. Skin: Warm, dry, no pallor noted. There is no rash noted. Head: Normocephalic, atraumatic Eye: Normal conjunctiva, no drainage Ears, Nose, Mouth, and Throat: oral mucosa is moist. Nares patent. Cardiovascular: Not tachycardic Respiratory: Patient is in no distress, no accessory muscle use, lungs are clear to auscultation, no wheezing, rales or rhonchi Back: non-tender GI: Normal bowel sounds, no tenderness to palpation, no masses appreciated. No rebound, guarding, or rigidity noted. Musculoskeletal: The right ankle tibia and right knee are all nontender. The patient has tenderness in the right anterior thigh. No deformity or bruising or swelling or hematoma. The right shoulder has good range of motion though that causes discomfort. The right elbow and wrist are nontender. Radial pulse 2+. Neurological: A&O, normal speech Psychiatric: Cooperative Constitutional Vital Signs, click to edit/add: Last Vital Signs Temp 98.7 F 10/01/23 19:59 Pulse 66 10/01/23 19:59 Resp 12 10/01/23 19:59 BP 191/79 H 10/01/23 19:59 Pulse Ox 98 10/01/23 19:59 Course Vital Signs Vital signs: Vital Signs Temperature 98.7 F 10/01/23 19:59 Pulse Rate 66 10/01/23 19:59 Respiratory Rate 12 10/01/23 19:59 Blood Pressure 191/79 H 10/01/23 19:59 Pulse Oximetry 98 10/01/23 19:59 Temperature 98.7 F 10/01/23 19:59 Pulse Rate 66 10/01/23 19:59 Respiratory Rate 12 10/01/23 19:59 Blood Pressure 191/79 H 10/01/23 19:59 Pulse Oximetry 98 10/01/23 19:59 MDM - Extremity Injury (Lower) MDM Narrative Medical decision making narrative: Left hip greater trochanter avulsion fracture is identified. She is unable to ambulate. She is a dialysis patient and cannot be admitted here. I have spoken to the hospitalist at [facility] as well as Dr. Medeiros from orthopedics. He feels that the fracture is likely nonsurgical. The patient however is unable to ambulate and will need PT and OT and possible ECF placement. Findings are discussed with her family. She is being transferred and she is agreeable and stable for transfer. Differential Diagnosis Differential diagnosis: Likely fracture of femur, fracture of hip and other (Contusion) Lab Data Attestation: I reviewed the patient's lab results. Imaging Data Right hip: Radiologist's impression: ITS Impressions Hip X-Ray 10/01/23 20:12 IMPRESSION: Acute mildly displaced avulsion fracture of the greater trochanter of the right femur Electronically authenticated by: EVAN GARY Date: 10/01/2023 21:21 Femur X-Ray 10/01/23 20:13 IMPRESSION: Acute mildly displaced avulsion fracture of the greater trochanter of the right femur Electronically authenticated by: EVAN GARY Date: 10/01/2023 21:21 Shoulder X-Ray 10/01/23 20:13 IMPRESSION: No acute fracture or malalignment. Mild diffuse bony demineralization. Degenerative changes seen at the right glenohumeral joint. Electronically authenticated by: EVAN GARY Date: 10/01/2023 21:23 Discharge Plan Discharge Chief Complaint: Extremity Injury, Lower Clinical Impression: Avulsion fracture of right hip Patient Disposition: [facility] Time of Disposition Decision: 23:15 Discharge Location: [facility] Condition: Good Mode of Transportation: Private Vehicle
--- NOTE | 2023-10-01 21:32 | ECG_ITS ---
[facility] Test Date: 2023-10-01 Pat Name: ELIZABETH HAN Department: Room: - Gender: Female [employer]ice: : [id number] Requested By: JAS ART Order Number: [id number] Reading MD: CAIO MARTINEZ Measurements Intervals [place] Rate: 63 P: 90 AL: 162 QRS: 95 QRSD: 84 T: 79 QT: 410 QTc: 417 Interpretive Statements 1100 Sinus rhythm 3434 Septal myocardial infarction, age undetermined 9150 abnormal ECG Compared to ECG 05/02/2023 17:58:26 No significant changes Electronically Signed On 10-02-2023 7:28:16 EDT by CAIO MARTINEZ
[2023-10-01] MEDS: MORPHINE SULFATE 4 MG/ML VIAL 2 MG IV (22:09)
[2023-10-01 22:15] VITALS: BP 214/76; PULSE 97; O2SAT 98
[2023-10-01 22:15] LABS: Basophils Percent Auto 0.5 % (0.2-2.0); Eosinophils Absolute Auto 0.1 10^3/uL (0.0-0.7); Eosinophils Percent Auto 0.7 % (0.9-7.0); Hematocrit 38.4 % (36.0-48.0); Hemoglobin 12.3 g/dL (12.0-16.0); Immature Granulocytes Abs Auto 0.02 10^3/uL (0.00-0.03); Immature Granulocytes Pct Auto 0.3 % (0.0-0.5); Lymphocytes Absolute Auto 1.1 10^3/uL (1.2-3.8); Lymphocytes Percent Auto 14.1 % (20.5-60.0); Mean Corpuscular Hemoglobin 31.1 pg (26.7-34.0); Mean Platelet Volume 9.3 fL (9.5-13.5); Monocytes Absolute Auto 0.8 10^3/uL (0.3-0.8); Monocytes Percent Auto 10.8 % (1.7-12.0); Neutrophils Absolute Auto 5.6 10^3/uL (1.4-6.5); Neutrophils Percent Auto 73.6 % (43.0-75.0); Platelet Count 181 10^3/uL (150-450); Red Blood Count 3.96 10^6/uL (4.20-5.40); Red Cell Distribution Width 13.4 % (11.0-15.0); White Blood Count 7.6 10^3/uL (4.0-11.0)
[2023-10-01 22:26] LABS: Anion Gap 12.1; BUN Creatinine Ratio 6.3; Calcium 9.5 mg/dL (8.5-10.1); Carbon Dioxide 30.7 mmol/L (21.0-32.0); Chloride 99 mmol/L (98-107); Estimated GFR (African America 9 (>=60); Estimated GFR (Non-African Ame 8 (>=60); Glucose 91 mg/dL (74-106); Potassium 4.8 mmol/L (3.5-5.1); Sodium 137 mmol/L (136-145)
[2023-10-01 22:29] VITALS: BP 214/76
[2023-10-01] MEDS: HYDRALAZINE HCL 20 MG/ML VIAL 10 MG IVP (22:29)
[2023-10-01 22:39] VITALS: BP 199/68
--- NOTE | 2023-10-01 22:42 | PC.NURSE ---
pt voided 150ml of clear urine in bedpan pt tolerated well
[2023-10-01 23:13] VITALS: BP 180/71
[2023-10-02] VITALS: PULSE 68
--- NOTE | 2023-10-02 00:01 | PC.NURSE ---
pt accepted to [facility] by hospitalist
--- NOTE | 2023-10-02 01:20 | PC.NURSE ---
report given to [facility] prior to pt leaving
== END 2023-10-02 02:09 | disposition short-term general hospital (02) ==
PROVIDERS: Emergency Provider Emergency Medicine; PCP Family Medicine
DX: S72.111A Displaced fracture of greater trochanter of right femur, initial encounter for closed fracture (principal); W19.XXXA Unspecified fall, initial encounter; Z79.899 Other long term (current) drug therapy
CPT/HCPCS: 36415; 73030; 73502; 73552; 80048; 85025; 93005; 96374; 96375; 99285